=== PATIENT | male | born 1945 | race Native Hawaiian/Other Pacific Islander ===

== ENCOUNTER 2018-06-04 17:43 | Inpatient (IN) | payer MEDICARE, MEDICAID ==
--- NOTE | 2018-06-04 18:13 | ED PDOC ---
Arrival/HPI - General Chief Complaint: Seizure Time Seen by Provider: 06/04/18 18:04 Historian: Patient - History of Present Illness Narrative History of Present Illness (Text): you were treated in the ED today for hx of hypertension, cholesterol, 2015 meningioma resection and since with seizures and last 06/02/15 for a few minutes but today had a seizure lasting more than 13-14 minutes which was witnessed by the and secondarily having constipation symptoms but then had a bowel movement today, on otherwise without any head injury/neck pain/nausea/vomiting/ headache/dizziness/difficulty breathing/chest pain/abdomen pain/numbness/ tingling/loss of limb function/pain with urination. Time/Duration: 1-3 hours Symptom Onset: Sudden Symptom Course: Improving Quality: Other (no pain) Activities at Onset: Rest Context: Sitting Past Medical History - Provider Review Nursing Documentation Reviewed: Yes - Travel History Have you recently traveled outside [place] w/in the past 3 mons?: No - Infectious Disease Hx of Infectious Diseases: None - Tetanus Immunization Tetanus Immunization: Unknown - Cardiac Hx Cardiac Disorders: Yes Hx Angina: Yes Hx Hypertension: Yes Hx Mitral Valve Prolapse: Yes - Pulmonary Hx Respiratory Disorders: No - Neurological Hx Neurological Disorder: Yes Hx Seizures: Yes Other/Comment: craniotomy removal tumor 2015. brain tumor 2015 - HEENT Hx HEENT Disorder: Yes Hx Cataracts: Yes Hx Glaucoma: Yes (left eye) - Renal Hx Renal Disorder: Yes Other/Comment: over active bladder - Endocrine/Metabolic Hx Endocrine Disorders: No - Hematological/Oncological Hx Blood Disorders: No - Integumentary Hx Dermatological Disorder: No - Musculoskeletal/Rheumatological Hx Musculoskeletal Disorders: No - Gastrointestinal Hx Gastrointestinal Disorders: No - Genitourinary/Gynecological Hx Genitourinary Disorders: Yes (urine frequency) Hx Incontinence: Yes Other/Comment: over active bladder - Psychiatric Hx Psychophysiologic Disorder: No Hx Substance Use: No - Surgical History Hx Cataract Extraction: Yes (b/l) Hx Cardiac Catheterization: Yes Other/Comment: craniotomy removal tumor 2014, left hip surgery (2017) - Anesthesia Hx Anesthesia: Yes Hx Anesthesia Reactions: No Hx Malignant Hyperthermia: No - Suicidal Assessment Feels Threatened In Home Enviroment: No Family/Social History - Physician Review Nursing Documentation Reviewed: Yes Family/Social History: No Known Family HX Smoking Status: Former Smoker Hx Alcohol Use: No Hx Substance Use: No Hx Substance Use Treatment: No Allergies/Home Meds Allergies/Adverse Reactions: Allergies anesthetic-unknown name Adverse Reaction (Mild, Uncoded 06/04/18 17:55) NAUSEA Home Medications: Home Meds Medication Instructions Recorded Confirmed Simvastatin [Zocor] 20 mg PO HS 11/23/12 06/04/18 Travoprost [Travatan Z 2.5 ml] 1 drop OU HS 11/23/12 06/04/18 Carvedilol [Coreg] 25 mg PO BID 07/27/17 06/04/18 Docusate [Colace LIQUID] 100 mg PO BID 07/27/17 06/04/18 Fluticasone Propionate [Flovent 50 mcg IH DAILY 07/27/17 06/04/18 Diskus] Loperamide [Loperamide HCl] 2 mg PO DAILY PRN 07/27/17 06/04/18 Carbidopa/Levodopa 1 tab PO BID 06/04/18 06/04/18 [Carbidopa-Levodopa 25-100 Tab] Losartan [Cozaar] 1 tab PO BID 06/04/18 06/04/18 Mirtazapine [Remeron] 25 mg PO HS 06/04/18 06/04/18 Tamsulosin [Flomax] 1 cap PO HS 06/04/18 06/04/18 Timolol 0.5% Ophth [Timoptic 0.5% 1 drop RIGHTEYE DAILY 06/04/18 06/04/18 Ophth Soln] Review of Systems - Review of Systems Constitutional: Normal Eyes: Normal ENT: Normal Respiratory: Normal Cardiovascular: Normal Gastrointestinal: Normal Genitourinary Male: Normal Musculoskeletal: Normal Skin: Normal Neurological: Seizure Endocrine: Normal Hemo/Lymphatic: Normal Psychiatric: Normal Physical Exam Vital Signs Reviewed: Yes Vital Signs Temp Pulse Resp BP Pulse Ox 06/04/18 19:39 98.1 F 62 16 92/67 L 96 06/04/18 18:01 98.0 F 94 H 18 124/71 100 Temperature: Afebrile Blood Pressure: Hypertensive Pulse: Regular Respiratory Rate: Normal Appearance: Positive for: Well-Appearing, Non-Toxic, Comfortable Pain Distress: None Mental Status: Positive for: Alert and Oriented X 3 Finger Stick Blood Glucose: 110 - Systems Exam Head: Present: Atraumatic, Normocephalic Pupils: Present: PERRL Extroacular Muscles: Present: EOMI Conjunctiva: Present: Normal Ears: Present: Normal Mouth: Present: Moist Mucous Membranes Pharnyx: Present: Normal Nose (External): Present: Atraumatic Nose (Internal): Present: Normal Inspection Neck: Present: Normal Range of Motion Respiratory/Chest: Present: Clear to Auscultation, Good Air Exchange Cardiovascular: Present: Regular Rate and Rhythm Abdomen: No: Tenderness, Distention, Normal Bowel Sounds, Peritoneal Signs, Rebound, Guarding, McBurney's Point Tender, Rovsing's Sign Present, Hernias, Feeding Tubes, Ostomy Tubes, Mass/Organomegaly, Scars, Other Back: Present: Normal Inspection Upper Extremity: Present: Normal Inspection Lower Extremity: Present: Normal Inspection Neurological: Present: GCS=15, CN II-XII Intact, Speech Normal, Motor Func Grossly Intact Skin: Present: Warm, Normal Color Psychiatric: Present: Alert, Oriented x 3, Normal Insight, Normal Concentration Medical Decision Making ED Course and Treatment: you were treated in the ED today for hx of hypertension, cholesterol, 2015 meningioma resection and since with seizures and last 06/02/15 for a few minutes but today had a seizure lasting more than 13-14 minutes which was witnessed by the and secondarily having constipation symptoms but then had a bowel movement today, on otherwise without any head injury/neck pain/nausea/vomiting/ headache/dizziness/difficulty breathing/chest pain/abdomen pain/numbness/ tingling/loss of limb function/pain with urination. You were otherwise breathing easily, smiling and talking with your , good strength/sensation, walking easily, clear lungs, no abdomen tenderness, no fever temp 98, stable heart rate 84, stable breathing rate 18, excellent oxygen level 100% room air, elevated blood pressure 124/71 which we recommend repeat in 2-3 days primary care office to determine further treatment, you have blood tests no infection count 6, stable blood level hemoglobin 14/platelets 172, stable chemistry sodium 140, potassium 4, bicarbonate 19, chloride 102, bun 26, creatinine 1.1, anion gap 23 elevated, glucose 115, Magnesium 2.4 mildly elevated, AST mildly elevated 58, heart blood test negative less than 0.01, urine test protein/small blood/small leukocytes, radiology ct head report below and chest xray no acute findings, ECG normal sinus rhythm, saline, discussed your case with neurology who stated to increase your lamictal 150mg twice daily to 200mg twice daily and plan MRI with/without contrast in the morning, observation done in the ED with improvement, counselled to stop driving till first clinic visit. d/ w medical record librarian who stated will admit for Dr. Sharpe for extended seizure and new mass. EXAM: CT Head Without Intravenous Contrast CLINICAL HISTORY: 73 years old, male; Condition or disease; Other: Seizure; Patient HX: 73yom, seizure extended duration 15min TECHNIQUE: Axial computed tomography images of the head/brain without intravenous contrast. All CT scans at this facility use at least one of these dose optimization techniques: automated exposure control; mA and/or kV adjustment per patient size (includes targeted exams where dose is matched to clinical indication); or iterative reconstruction. Coronal and sagittal reformatted images were created and reviewed. COMPARISON: CT - HEAD W/O (CODE STROKE) 07/27/2017 12:25 AM FINDINGS: Brain: Extra-axial parafalcine soft tissue lesion again seen in region of superior sagittal sinus near the vertex measuring 4.4 x 3.1 cm in axial dimension and 19.1 in craniocaudal dimension. There are areas of diminished density in the white matter bilaterally consistent with chronic small vessel ischemic changes. Taylor-white matter differentiation is intact and unremarkable. No mass lesion. No evidence of intracranial hemorrhage. Vasogenic edema is seen in bilateral frontal lobes more prominent on the right. No mass effect or midline shift. Ventricles: Unremarkable. No ventriculomegaly. Bones/joints: Right frontal extra-axial soft tissue lesion adjacent to frontal craniotomy seen on axial image 27 measuring 2.4 x 2.3 cm in axial dimension and 1.6 cm in craniocaudal dimension seen on image 30. No acute fracture. Soft tissues: Left posterior parafalcine soft tissue lesion seen on axial image 24 measuring 4.1 x 1.2 cm in axial dimension and 1.6 cm in craniocaudal dimension seen on coronal image 64. Sinuses: Unremarkable as visualized. No acute sinusitis. Mastoid air cells: Unremarkable as visualized. No mastoid effusion. IMPRESSION: 1. Extra-axial parafalcine soft tissue lesion again seen in region of superior sagittal sinus near the vertex measuring 4.4 x 3.1 cm in axial dimension and 19.1 in craniocaudal dimension. This lesion appears unchanged versus increased in size compared to prior study. Please correlate with surgical history. MRI with contrast is recommended for detailed evaluation of malignancy and recurrence of disease. 2. Right frontal extra-axial soft tissue lesion adjacent to frontal craniotomy seen on axial image 27 measuring 2.4 x 2.3 cm in axial dimension and 1.6 cm in craniocaudal dimension seen on image 30. This finding appears new compared to prior study. 3. Left posterior parafalcine soft tissue lesion seen on axial image 24 measuring 4.1 x 1.2 cm in axial dimension and 1.6 cm in craniocaudal dimension seen on coronal image 64. Recommend further evaluation with MRI with contrast. 4. Chronic ischemic changes bilaterally 06/04/18 19:58 06/04/18 20:53 Reassessment Condition: Re-examined, Improved - Lab Interpretations Lab Results: 06/04/18 18:08 06/04/18 18:08 Lab Results 06/04/18 18:08: Sodium 140, Potassium 4.0, Chloride 102, Carbon Dioxide 19 L, Anion Gap 23 H, BUN 26 H, Creatinine 1.1, Est GFR ( Amer) > 60, Est GFR ( Non-Af Amer) > 60, Random Glucose 115 H, Calcium 9.8, Magnesium 2.4 H, Total Bilirubin 0.4, AST 40, ALT 58 H, Alkaline Phosphatase 61, Lactate Dehydrogenase 466, Total Creatine Kinase 458 H, CK-MB (CK-2) 2.6, CK-MB (CK-2) % Cancelled, Troponin I < 0.01, Total Protein 7.3, Albumin 4.5, Globulin 2.8, Albumin/ Globulin Ratio 1.6 06/04/18 18:08: Urine Color Yellow, Urine Appearance Sl cloudy, Urine pH 5.5, Ur Specific Normal >= 1.030, Urine Protein Trace H, Urine Glucose (UA) Negative , Urine Ketones Negative, Urine Blood Small H, Urine Nitrate Negative, Urine Bilirubin Negative, Urine Urobilinogen 0.2, Ur Leukocyte Esterase Small H, Urine RBC 5 - 10, Urine WBC 25 - 30, Ur Epithelial Cells 6 - 8, Urine Bacteria Mod 06/04/18 18:08: PT 11.1, INR 0.97, APTT 30.2 06/04/18 18:08: WBC 6.5, RBC 4.36, Hgb 14.4, Hct 42.2, MCV 96.8 D, MCH 33.0, MCHC 34.1, RDW 12.3, Plt Count 172, MPV 8.6, Gran % 71.3 H, Lymph % (Auto) 23.6 , Mercer % (Auto) 3.1, Eos % (Auto) 1.7, Baso % (Auto) 0.3, Gran # 4.63, Lymph # ( Auto) 1.5, Mercer # (Auto) 0.2, Eos # (Auto) 0.1, Baso # (Auto) 0.02 06/04/18 17:50: POC Glucose (mg/dL) 110 - RAD Interpretation Radiology Orders: 06/04/18 18:07 HEAD W/O CONTRAST [CT] Stat CHEST PORTABLE [RAD] Stat 06/04/18 20:51 BRAIN W & WO CONTRAST [MRI] Stat Side Puller: ED Physician (cxr no acute) - EKG Interpretation Interpreted by ED Physician: Yes (NSR) Type: 12 lead EKG - Medication Orders Current Medication Orders: Sodium Chloride (Sodium Chloride 0.9%) 1,000 mls @ 100 mls/hr IV .Q10H KARIN Last Admin: 06/04/18 19:16 Dose: 100 mls/hr eMAR Start Stop Document 06/04/18 19:16 BENNY (Rec: 06/04/18 19:19 BENNY [id number]) Intravenous Solution Start Date 06/04/18 Start Time 19:16 Discontinued Medications Lamotrigine (Lamictal) 50 mg PO STAT STA PRN Reason: Protocol Stop: 06/04/18 20:25 Disposition/Present on Arrival - Present on Arrival Any Indicators Present on Arrival: No History of DVT/PE: No History of Uncontrolled Diabetes: No Urinary Catheter: No History of Decub. Ulcer: No History Surgical Site Infection Following: None - Disposition Have Diagnosis and Disposition been Completed?: Yes Diagnosis: Seizure, Meningioma Disposition: HOSPITALIZED Disposition Time: 20:54 Patient Plan: Admission, Telemetry Condition: IMPROVED Forms: [employer] (Czech)
[2018-06-04 18:21] LABS: BASO # 0.02 K/mm3 (0.0-2.0); BASO % 0.3 % (0.0-3.0); EOS # 0.1 (0.0-0.7); EOS % 1.7 % (1.5-5.0); GRAN # 4.63 (1.4-6.5); GRAN % 71.3 % (50.0-68.0); HEMOGLOBIN 14.4 g/dL (14.0-18.0); LYMPH # 1.5 (1.2-3.4); LYMPH % 23.6 % (22.0-35.0); MEAN CELL VOLUME 96.8 fl (80.0-105.0); MEAN CORPUSCULAR HGB CONC 34.1 g/dl (31.0-37.0); MEAN PLATELET VOLUME 8.6 fl (7.0-11.0); MONO # 0.2 (0.1-0.6); MONO % 3.1 % (1.0-6.0); RBC 4.36 10^6/uL (3.5-6.1); RED CELL DISTRIBUTION WIDTH 12.3 % (11.5-14.5); WHITE BLOOD COUNT 6.5 10^3/ul (4.5-11.0)
[2018-06-04 18:22] LABS: PH,URINE 5.5 (4.7-8.0); URINE BILIRUBIN NEGATIVE (NEGATIVE); URINE BLOOD SMALL (NEGATIVE); URINE GLUCOSE (UA) NEGATIVE (NEGATIVE); URINE LEUKOCYTE ESTERASE SMALL Leu/uL (NEGATIVE); URINE PROTEIN TRACE mg/dL (<30 mg/dL); URINE UROBILINOGEN 0.2 E.U./dL (<1 E.U./dL)
[2018-06-04 18:24] LABS: URINE COLOR YELLOW (YELLOW)
[2018-06-04 18:27] LABS: INR 0.97; PARTIAL THROMBOPLASTIN TIME 30.2 Seconds (25.1-36.5); PROTHROMBIN TIME 11.1 SECONDS (9.4-12.5)
[2018-06-04 18:30] LABS: ALB/GLOB RATIO 1.6 (1.1-1.8); ALBUMIN 4.5 g/dL (3.0-4.8); ALT/SGPT 58 U/L (7-56); AST/SGOT 40 U/L (17-59); BLOOD UREA NITROGEN 26 mg/dL (7-21); CALCIUM 9.8 mg/dL (8.4-10.5); GFR NON-AFRICAN AMERICAN > 60
[2018-06-04 18:33] LABS: URINE APPEARANCE SL CLOUDY (CLEAR); URINE WBC 25 - 30 /hpf (0-6)
[2018-06-04 18:34] LABS: URINE BACTERIA MOD (NEG)
[2018-06-04 18:41] LABS: TROPONIN I < 0.01 ng/mL
[2018-06-04 19:13] LABS: CK-MB 2.6 ng/mL (0.0-3.6)
[2018-06-04] MEDS: Sodium Chloride 0.9% 1,000 ML IV SCH (19:16)
--- NOTE | 2018-06-04 22:36 | CP.PCM.HP ---
History of Present Illness - History of Present Illness History of Present Illness: Antony Dale, PGY-1 H&P for Hospitalist Service This is a 73 year old male with PMH of 2015 meningioma, parkinson's, HT and HLD presenting to the ED for witnessed seizure. Per , patient was laying on bed at home at 4pm when he began to have seizure that lasted approximately ten minutes. Seizure broke spontaneously and patient admits to confusion after seizure. He denies any head trauma. Patient says he has approximately one seizure per month since his meningioma resection in 2014. Patient has no complaints at this time. He denies CP, SOB, headaches, fevers, nausea, chills, vomiting, abdominal pain, new back pain, urinary complaints, numbness, tingling , recent sickness and recent travel. 12 point ROS noted here, otherwise unremarkable. In ED, patient was given 50mg lamictal and 1L NS. Labs showed elevated CK, BUN 26, Mg of 2.4 and ALT of 58. Head CT showed right frontal extra-axial soft tissue lesion adjacent to frontal craniotomy. This finding appears new compared to prior study. Left posterior parafalcine soft tissue lesion. Recommend further evaluation with MRI with contrast. Chronic ischemic changes bilaterally. Per Dr. Jenkins, patient to increase lamictal to 200mg BID and will have Brain MRI in morning. Patient will be admitted to [facility] for monitoring. PMH: as above SH: denies tobacco, drinking and drugs Sx: left hip replacement FH: father had stroke, brother had pancreatic cancer All: says anesthetic medication but cannot specify name Present on Admission - Present on Admission Any Indicators Present on Admission: No Past Patient History - Infectious Disease Hx of Infectious Diseases: None - Tetanus Immunizations Tetanus Immunization: Unknown - Past Medical History & Family History Past Medical History?: Yes - Past Social History Smoking Status: Former Smoker - CARDIAC Hx Cardiac Disorders: Yes Hx Angina: Yes Hx Hypertension: Yes Hx Mitral Valve Prolapse: Yes - PULMONARY Hx Respiratory Disorders: No - NEUROLOGICAL Hx Neurological Disorder: Yes Hx Seizures: Yes Other/Comment: craniotomy removal tumor 2014. brain tumor 2014 - HEENT Hx HEENT Problems: Yes Hx Cataracts: Yes Hx Glaucoma: Yes (left eye) - RENAL Hx Chronic Kidney Disease: Yes Other/Comment: over active bladder - ENDOCRINE/METABOLIC Hx Endocrine Disorders: No - HEMATOLOGICAL/ONCOLOGICAL Hx Blood Disorders: No - INTEGUMENTARY Hx Dermatological Problems: No - MUSCULOSKELETAL/RHEUMATOLOGICAL Hx Musculoskeletal Disorders: No - GASTROINTESTINAL Hx Gastrointestinal Disorders: No - GENITOURINARY/GYNECOLOGICAL Hx Genitourinary Disorders: Yes (urine frequency) Hx Incontinence: Yes Other/Comment: over active bladder - PSYCHIATRIC Hx Psychophysiologic Disorder: No Hx Substance Use: No - SURGICAL HISTORY Hx Cataract Extraction: Yes (b/l) Hx Cardiac Catheterization: Yes Other/Comment: craniotomy removal tumor 2014, left hip surgery (2016) - ANESTHESIA Hx Anesthesia: Yes Hx Anesthesia Reactions: No Hx Malignant Hyperthermia: No Meds Allergies/Adverse Reactions: Allergies Allergy/AdvReac Type Severity Reaction Status Date / Time anesthetic-unknown name AdvReac Mild NAUSEA Uncoded 06/04/18 17:55 Physical Exam - Constitutional Appears: No Acute Distress - Head Exam Head Exam: ATRAUMATIC, NORMAL INSPECTION - Eye Exam Eye Exam: EOMI Pupil Exam: PERRL - ENT Exam ENT Exam: Mucous Membranes Moist - Respiratory Exam Respiratory Exam: Clear to Auscultation Bilateral. absent: Respiratory Distress - Cardiovascular Exam Cardiovascular Exam: REGULAR RHYTHM, +S1, +S2 - GI/Abdominal Exam GI & Abdominal Exam: Normal Bowel Sounds. absent: Firm, Guarding - Extremities Exam Extremities exam: Positive for: normal inspection. Negative for: calf tenderness Additional comments: left leg 4/5 muscle strength, right leg 5/5 muscle strength - Back Exam Back exam: NORMAL INSPECTION - Neurological Exam Neurological exam: Alert, CN II-XII Intact, Oriented x3 - Skin Skin Exam: Normal Color, Warm Results - Vital Signs Recent Vital Signs: Last Vital Signs Temp 98.1 F 06/04/18 19:39 Pulse 62 06/04/18 19:39 Resp 16 06/04/18 19:39 BP 92/67 L 06/04/18 19:39 Pulse Ox 96 06/04/18 19:39 - Labs Result Diagrams: 06/04/18 18:08 06/04/18 18:08 Assessment & Plan - Assessment and Plan (Free Text) Assessment: This is a 73 year old male with PMH of 2015 meningioma, parkinson's, HT and HLD presenting to the ED for witnessed seizure. Patient will have MRI Brain in the AM. Admitted to tele. Plan: S/p unprovoked seizure episode -history of seizure after meningioma resection in 2014 -MRI Brain AM -neurology on consult, Dr. Jenkins -Lamictal 200mg BID -aspiration precautions -seizure precautions -neuro checks -moderate fall prevention -elevated CK -NS @ 100cc/hr -Head CT shows new right frontal extra-axial soft tissue lesion adjacent to frontal craniotomy measuring 2.4 x 2.3 cm. This finding appears new compared to prior study. Left posterior parafalcine soft tissue lesion seen on axial image 24 measuring 4.1 x 1.2 cm in axial dimension and 1.6 cm in craniocaudal dimension seen on coronal image 64. Recommend further evaluation with MRI with contrast. Chronic ischemic changes bilaterally Mild transaminitis -elevated AST -will monitor History of Parkinson's -continue home carbidopa/levodopa History of HTN -continue home carvedilol. losartan History of HLD -continue home atorvastatin PPX with pepcid and SCD Patient seen and case discussed with attending, Dr. Erum Dale, PGY-1
[2018-06-05] MEDS: Latanoprost 2.5 ml Opht Soln OU SCH (00:42)
[2018-06-05 05:16] LABS: BASO # 0.02 K/mm3 (0.0-2.0); BASO % 0.3 % (0.0-3.0); EOS # 0.1 (0.0-0.7); EOS % 1.6 % (1.5-5.0); GRAN # 4.9 (1.4-6.5); GRAN % 64.5 % (50.0-68.0); HEMOGLOBIN 14.8 g/dL (14.0-18.0); LYMPH # 2.2 (1.2-3.4); LYMPH % 29.4 % (22.0-35.0); MEAN CELL VOLUME 97.3 fl (80.0-105.0); MEAN CORPUSCULAR HEMOGLOBIN 33.3 pg (25.0-35.0); MEAN CORPUSCULAR HGB CONC 34.2 g/dl (31.0-37.0); MEAN PLATELET VOLUME 8.7 fl (7.0-11.0); MONO # 0.3 (0.1-0.6); MONO % 4.2 % (1.0-6.0); RBC 4.45 10^6/uL (3.5-6.1); RED CELL DISTRIBUTION WIDTH 12.5 % (11.5-14.5); WHITE BLOOD COUNT 7.6 10^3/ul (4.5-11.0)
[2018-06-05] MEDS: Sodium Chloride 0.9% 1,000 ML IV SCH (05:17)
[2018-06-05] MEDS ORDERED: Pantoprazole 20 mg EC Tab PO SCH (06:00)
[2018-06-05 06:55] LABS: ALB/GLOB RATIO 1.6 (1.1-1.8); ALBUMIN 4.5 g/dL (3.0-4.8); ALT/SGPT 75 U/L (7-56); AST/SGOT 38 U/L (17-59); BLOOD UREA NITROGEN 25 mg/dL (7-21); CALCIUM 9.6 mg/dL (8.4-10.5); GFR NON-AFRICAN AMERICAN > 60
--- NOTE | 2018-06-05 09:09 | RAD ---
Date of service: 06/04/2018 HISTORY: Seizure COMPARISON: 07/27/2017. FINDINGS: LUNGS: The lungs are well inflated and clear. PLEURA: No significant pleural effusion identified, no pneumothorax apparent. CARDIOVASCULAR: Normal. OSSEOUS STRUCTURES: No significant abnormalities. VISUALIZED UPPER ABDOMEN: Normal. OTHER FINDINGS: None. IMPRESSION: No active pulmonary disease.
--- NOTE | 2018-06-05 09:34 | CT ---
Date of service: 06/04/2018 PROCEDURE: CT HEAD WITHOUT CONTRAST. HISTORY: 73yoM, seizure extended duration 15min COMPARISON: 07/27/2017 TECHNIQUE: Axial computed tomography images were obtained through the head/brain without intravenous contrast. Radiation dose: Total exam DLP = 1061 mGy-cm. This CT exam was performed using one or more of the following dose reduction techniques: Automated exposure control, adjustment of the mA and/or kV according to patient size, and/or use of iterative reconstruction technique. FINDINGS: HEMORRHAGE: No intracranial hemorrhage. BRAIN: There is a mass arising from the left side of the posterior falx. Measuring 46 x 28 x 12 mm. This most likely represents a meningioma. A dural metastasis is also possible. There is vasogenic edema in the left hemisphere. There is chronic encephalomalacia in the right hemisphere. The mass has increased in size VENTRICLES: Unremarkable. No hydrocephalus. CALVARIUM: Frontal craniotomy changes are seen PARANASAL SINUSES: Unremarkable as visualized. No significant inflammatory changes. MASTOID AIR CELLS: Unremarkable as visualized. No inflammatory changes. OTHER FINDINGS: None. IMPRESSION: There is a mass arising from the left side of the posterior falx. Measuring 46 x 28 x 12 mm. This most likely represents a meningioma. A dural metastasis is also possible. There is vasogenic edema in the left hemisphere. There is chronic encephalomalacia in the right hemisphere. The mass has increased in size
[2018-06-05 10:45] LABS: FREE T4 0.77 ng/dL (0.78-2.19)
[2018-06-05] MEDS ORDERED: Gadodiamide 287 MG/ML VIAL (15ML) IV ONE (10:45)
[2018-06-05 10:58] LABS: T3 1.01 ng/mL (0.97-1.69)
--- NOTE | 2018-06-05 11:43 | PCM.RRT ---
<Bala Mendes - Last Filed: 06/05/18 12:48> ADULT SERVICES LIBRARIAN Nurse Assessment - Situation Date: 06/05/18 Time ADULT SERVICES LIBRARIAN was called: 10:50 ADULT SERVICES LIBRARIAN Location:: mri ADULT SERVICES LIBRARIAN Reason for Call: Change in Mental Status ADULT SERVICES LIBRARIAN Called By: Other Disciplines - IV IV Inserted during ADULT SERVICES LIBRARIAN?: No I.Reason for ADULT SERVICES LIBRARIAN - A) Acute Change in Patient: (Select all that apply): Acute change in mental status Plan - Assessment of Findings&Treatment Plan Bala Mendes Internal Medicine Resident- House Doctor Subjective: ADULT SERVICES LIBRARIAN called on patient by communication technician for seizure like activity. As per staff , the patient was having MRI completed when his upper extremities contracted and began shaking. Additionally the patient was altered and would not follow commands. Event lasted for approximately 60 seconds. Patient seen and examined at site of occurrence. Patient was awake, alert, responded to verbal stimuli, answered questions appropriately, followed commands, and moved extremities past midline. Patient did not recall aforementioned event. Admits to baseline right upper extremity and lower extermity tremor. Denies associated dizziness, visual/ auditory changes, chest palpitations, and neurological deficits. Further denies fever, chills, chest pain, shortness of breath, abdominal pain, nausea/vomiting , diarrhea, constipation, and urinary symptoms. 12 Point ROS negative except as indicated in HPI Physical Examination: - Constitutional Appears: No Acute Distress - Head Exam Head Exam: ATRAUMATIC - Eye Exam Eye Exam: EOMI Pupil Exam: PERRL - ENT Exam ENT Exam: Mucous Membranes Moist - Respiratory Exam Respiratory Exam: Clear to Auscultation Bilateral. absent: Respiratory Distress - Cardiovascular Exam Cardiovascular Exam: +S1, +S2 - GI/Abdominal Exam GI & Abdominal Exam: Normal Bowel Sounds. absent: Firm, Guarding - Extremities Exam Extremities exam: Positive for: normal inspection. Negative for: calf tenderness - Neurological Exam Neurological exam: AAO x 3, CN II-XII Intact, muscle strength 5/5 bilateral upper extremities, 4/5 bilateral lower extremities, sensation intake to touch throughout - Skin Skin Exam: Normal Color, Warm Assessment and Plan: Patient is a 73 year old male with PMHx of 2015 meningioma, parkinson's, HT and HLD who was admitted for evaluation and treatment of a witnessed seizure. ADULT SERVICES LIBRARIAN called on patient for seizure like activity. Seizure Like Activity, Hx of Seizures - Ativan 2mg IV given during ADULT SERVICES LIBRARIAN, seizure subsided and patient is hemodynamically stable - Neuro checks q4 hrs - High risk fall precautions Primary team made aware patient case. Patient case endorsed to and plan approved by attending physician, Dr. Mcgee. <Nahomy Mcgee - Last Filed: 06/05/18 17:35> Attending/Attestation - Attestation I have personally seen and examined this patient.: Yes I have fully participated in the care of the patient.: Yes I have reviewed all pertinent clinical information, including history, physical exam and plan: Yes Notes (Text): attending note; Patient seen and examined with resident during rapid response. Patient had an episode of seizure during MRI scan. Patient was given IV Ativan. Currently alert and awake. No focal neurological deficit. Vitals stable. Patient will be transferred to the floor and closely. case discussed with PMD in detail.
--- NOTE | 2018-06-05 12:25 | MRI ---
Date of service: 06/05/2018 PROCEDURE: MRI BRAIN WITH AND WITHOUT CONTRAST HISTORY: per Dr. Jenkins hx of seizures/brain mass. COMPARISON: CT 06/04/2018 TECHNIQUE: Multiplanar, multisequence MR images of the brain were obtained with and without intravenous contrast enhancement. 15 cc of Omniscan The study is compromised by motion artifact. The patient had a seizure well in the scanner. Postcontrast images could not be obtained. FINDINGS: HEMORRHAGE: None DWI: There is a mass in the right anterior frontal region which measuring 16 mm in diameter. This shows restricted diffusion. The lesion is hypo intense on T2 weighted imaging. There is a broad-based left falcine lesion which also shows restricted diffusion and is best seen on the ADC map images specifically image 18 series 300. This lesion measures 42 x 12 mm. BRAIN PARENCHYMA: Abnormal signal intensity is seen in the white matter bilaterally. Consistent with encephalomalacia and vasogenic edema especially on the left. There has been a previous craniotomy. ENHANCEMENT: The axial postcontrast images are severely degraded by motion. However the lesions mentioned above appear to enhance. VENTRICLES: Unremarkable. No hydrocephalus. CRANIUM: Previous frontal craniotomy ORBITS: Grossly unremarkable. PARANASAL SINUSES/MASTOIDS: Clear VASCULAR SYSTEM: Skull base flow voids intact. OTHER FINDINGS: None . IMPRESSION: Two separate extra-axial masses along side the falx. There is a right anterior frontal mass and a left posterior frontal mass. These lesions appear to enhance. Findings suspicious for metastatic disease
--- NOTE | 2018-06-05 12:26 | CP.PCM.CON ---
History of Present Illness - History of Present Illness History of Present Illness: Neurology Consultation Note: Mrs. Hatch is a 73-year-old man with a past medical history of seizure disorder due to frontal meningioma s/p resection, who had a prolonged episode of witnessed seizure yesterday with subsequent post-ictal state. CT scan of the head was concerning for possible resurgence of meningioma and new lesions. He usually takes Lamictal 150 BID, I asked this to be increased to 200 mg BID and will get MRI with contrast to evaluate intracranial masses and edema. Review of Systems - Review of Systems All systems: reviewed and no additional remarkable complaints except Past Patient History - Infectious Disease Hx of Infectious Diseases: None - Tetanus Immunizations Tetanus Immunization: Unknown - Past Medical History & Family History Past Medical History?: Yes - Past Social History Smoking Status: Former Smoker - CARDIAC Hx Cardiac Disorders: Yes Hx Angina: Yes Hx Hypertension: Yes Hx Mitral Valve Prolapse: Yes - PULMONARY Hx Respiratory Disorders: No - NEUROLOGICAL Hx Neurological Disorder: Yes Hx Seizures: Yes Other/Comment: craniotomy removal tumor 2015. brain tumor 2015 - HEENT Hx HEENT Problems: Yes Hx Cataracts: Yes Hx Glaucoma: Yes (left eye) - RENAL Hx Chronic Kidney Disease: Yes Other/Comment: over active bladder - ENDOCRINE/METABOLIC Hx Endocrine Disorders: No - HEMATOLOGICAL/ONCOLOGICAL Hx Blood Disorders: No - INTEGUMENTARY Hx Dermatological Problems: No - MUSCULOSKELETAL/RHEUMATOLOGICAL Hx Musculoskeletal Disorders: No - GASTROINTESTINAL Hx Gastrointestinal Disorders: No - GENITOURINARY/GYNECOLOGICAL Hx Genitourinary Disorders: Yes (urine frequency) Hx Incontinence: Yes Other/Comment: over active bladder - PSYCHIATRIC Hx Psychophysiologic Disorder: No Hx Substance Use: No - SURGICAL HISTORY Hx Cataract Extraction: Yes (b/l) Hx Cardiac Catheterization: Yes Other/Comment: craniotomy removal tumor 2014, left hip surgery (2017) - ANESTHESIA Hx Anesthesia: Yes Hx Anesthesia Reactions: No Hx Malignant Hyperthermia: No Meds Allergies/Adverse Reactions: Allergies Allergy/AdvReac Type Severity Reaction Status Date / Time anesthetic-unknown name AdvReac Mild NAUSEA Uncoded 06/05/18 12:05 - Medications Medications: Current Medications Atorvastatin Calcium (Lipitor) 10 mg PO DIN [facility] Carbidopa/Levodopa (Sinemet) 1 tab PO BID [facility] Carvedilol (Coreg) 25 mg PO BID [facility] Docusate Sodium (Colace) 100 mg PO BID [facility] Famotidine (Pepcid) 40 mg PO HS [facility] Sodium Chloride (Sodium Chloride 0.9%) 1,000 mls @ 100 mls/hr IV .Q10H [facility] Last Admin: 06/05/18 05:17 Dose: 100 mls/hr Lamotrigine (Lamictal) 200 mg PO BID [facility] PRN Reason: Protocol Latanoprost (Xalatan Opht) 0 ml OU HS [facility] Last Admin: 06/05/18 00:42 Dose: 2.5 ml Losartan Potassium (Cozaar) 1 mg PO BID [facility] Mirtazapine (Remeron) 15 mg PO HS [facility] Last Admin: 06/05/18 00:42 Dose: 15 mg Tamsulosin HCl (Flomax) 0.4 mg PO HS [facility] Last Admin: 06/05/18 00:33 Dose: 0.4 mg Timolol Maleate (Timoptic 0.5% Ophth Soln) 1 drop OD DAILY [facility] Physical Exam - Neurological Exam Additional comments: Somnolent, opens eyes to painful stimulus, confused, not combative, responds verbally with simple words and looks around. CN 2-12 intact. Moves all extremities, but did not follow commands consistently. Reflexes are brisk with clonus and upgoing plantar responses bilaterally. Sensation intact. Gait not assessed. Results - Vital Signs Recent Vital Signs: Last Vital Signs Temp 98.4 F 06/05/18 09:05 Pulse 114 H 06/05/18 11:01 Resp 18 06/05/18 11:01 BP 166/95 H 06/05/18 11:01 Pulse Ox 97 06/05/18 11:01 - Labs Result Diagrams: 06/05/18 05:00 06/05/18 05:00 Labs: Laboratory Results - last 24 hr 06/05/18 06/05/18 06/05/18 05:00 05:00 06:00 WBC 7.6 RBC 4.45 Hgb 14.8 Hct 43.3 MCV 97.3 MCH 33.3 MCHC 34.2 RDW 12.5 Plt Count 183 MPV 8.7 Gran % 64.5 Lymph % (Auto) 29.4 Major % (Auto) 4.2 Eos % (Auto) 1.6 Baso % (Auto) 0.3 Gran # 4.90 Lymph # (Auto) 2.2 Major # (Auto) 0.3 Eos # (Auto) 0.1 Baso # (Auto) 0.02 Sodium 142 Potassium 4.0 Chloride 103 Carbon Dioxide 25 Anion Gap 17 BUN 25 H Creatinine 1.1 Est GFR ( Amer) > 60 Est GFR (Non-Af Amer) > 60 Random Glucose 110 Calcium 9.6 Phosphorus 3.9 Magnesium 2.4 H Total Bilirubin 0.6 AST 38 ALT 75 H Alkaline Phosphatase 68 Total Protein 7.4 Albumin 4.5 Globulin 2.9 Albumin/Globulin Ratio 1.6 Free T4 0.77 L Thyroxine (T4) 7.0 Total T3 1.01 TSH 3rd Generation 2.46 Prolactin 06/05/18 08:03 WBC RBC Hgb Hct MCV MCH MCHC RDW Plt Count MPV Gran % Lymph % (Auto) Major % (Auto) Eos % (Auto) Baso % (Auto) Gran # Lymph # (Auto) Major # (Auto) Eos # (Auto) Baso # (Auto) Sodium Potassium Chloride Carbon Dioxide Anion Gap BUN Creatinine Est GFR ( Amer) Est GFR (Non-Af Amer) Random Glucose Calcium Phosphorus Magnesium Total Bilirubin AST ALT Alkaline Phosphatase Total Protein Albumin Globulin Albumin/Globulin Ratio Free T4 Thyroxine (T4) Total T3 TSH 3rd Generation Prolactin 9.9 Assessment & Plan (1) Meningioma Assessment and Plan: Will evaluate with MRI brain with and without contrast. Consult neurosurgery for outpatient management. Status: Acute (2) Seizure Assessment and Plan: Will increase Lamictal to 200 mg BID and continue monitoring. Likely still post -ictal. Admit for observation and EEG. Thank you. Status: Acute
--- NOTE | 2018-06-05 15:24 | CARD ---
APPROVED REPORT Date of service: 06/04/2018 EKG Measurement Heart [id number] <Conclusion> Normal sinus rhythm Normal ECG
[2018-06-05] MEDS ORDERED: Pneumococcal 23-Valent Vaccine IM ONE (18:01)
[2018-06-05 18:02] VITALS: BMI 24.2
--- NOTE | 2018-06-05 18:08 | CP.PCM.PN ---
<Xavier Abreu - Last Filed: 06/05/18 18:04> Subjective - Date & Time of Evaluation Date of Evaluation: 06/05/18 Time of Evaluation: 08:45 - Subjective Subjective: Xavier Abreu DO PGY-1, Internal Medicine Resident. Hospitalist Progress Note Patient seen and examined at bedside in ED. Patient was responding to questions with low volium voice. No seizure activity noted at that time. Patient was rested in bed. Patient denied CP, palpitations, headache, fever. ROS is otherwise negative Objective - Vital Signs/Intake and Output Vital Signs (last 24 hours): Temp Pulse Resp BP Pulse Ox 97.7 F 89 18 115/70 94 L 06/05/18 17:34 06/05/18 18:00 06/05/18 17:34 06/05/18 18:00 06/05/18 17:05 - Medications Medications: Current Medications Atorvastatin Calcium (Lipitor) 10 mg PO DIN [facility] Last Admin: 06/05/18 18:01 Dose: 10 mg Carbidopa/Levodopa (Sinemet) 1 tab PO BID [facility] Last Admin: 06/05/18 18:01 Dose: 1 tab Carvedilol (Coreg) 25 mg PO BID [facility] Last Admin: 06/05/18 18:00 Dose: 25 mg Docusate Sodium (Colace) 100 mg PO BID [facility] Last Admin: 06/05/18 18:00 Dose: 100 mg Famotidine (Pepcid) 40 mg PO HS [facility] Sodium Chloride (Sodium Chloride 0.9%) 1,000 mls @ 100 mls/hr IV .Q10H [facility] Last Admin: 06/05/18 05:17 Dose: 100 mls/hr Lamotrigine (Lamictal) 200 mg PO BID [facility] PRN Reason: Protocol Last Admin: 06/05/18 18:00 Dose: 200 mg Latanoprost (Xalatan Opht) 0 ml OU HS [facility] Last Admin: 06/05/18 00:42 Dose: 2.5 ml Lorazepam (Ativan) 2 mg IVP Q4 PRN; Protocol PRN Reason: Anxiety Losartan Potassium (Cozaar) 25 mg PO BID [facility] Last Admin: 06/05/18 18:00 Dose: 25 mg Mirtazapine (Remeron) 15 mg PO HS [facility] Last Admin: 09/17/18 00:42 Dose: 15 mg Tamsulosin HCl (Flomax) 0.4 mg PO HS [facility] Last Admin: 06/05/18 00:33 Dose: 0.4 mg Timolol Maleate (Timoptic 0.5% Ophth Soln) 1 drop OD DAILY [facility] Last Admin: 06/05/18 14:32 Dose: 1 drop - Labs Labs: 06/05/18 05:00 06/05/18 05:00 PT 11.1 SECONDS (9.4-12.5) 06/04/18 18:08 INR 0.97 06/04/18 18:08 APTT 30.2 Seconds (25.1-36.5) 06/04/18 18:08 - Constitutional Appears: Well - Head Exam Head Exam: ATRAUMATIC, NORMOCEPHALIC Additional comments: scalp scar - Eye Exam Eye Exam: EOMI, Normal appearance, PERRL Pupil Exam: NORMAL ACCOMODATION, PERRL - ENT Exam ENT Exam: Mucous Membranes Moist, Normal Exam - Neck Exam Neck Exam: Full ROM, Normal Inspection. absent: Lymphadenopathy - Respiratory Exam Respiratory Exam: Clear to Ausculation Bilateral, NORMAL BREATHING PATTERN - Cardiovascular Exam Cardiovascular Exam: REGULAR RHYTHM, +S1, +S2. absent: Murmur - GI/Abdominal Exam GI & Abdominal Exam: Soft, Normal Bowel Sounds. absent: Tenderness - Back Exam Back Exam: NORMAL INSPECTION - Neurological Exam Neurological Exam: Alert, Awake, CN II-XII Intact, Oriented x3 Neuro motor strength exam: Right Upper Extremity: 3, Right Lower Extremity: 3 Additional comments: resting tremors b/l hands. cog wheel rigidity in upper extremity - Psychiatric Exam Psychiatric exam: Normal Affect Additional comments: low volume voice - Skin Skin Exam: Dry, Intact, Normal Color, Warm Assessment and Plan - Assessment and Plan (Free Text) Assessment: 73 y/o male with PMH of HTN, HLD meningioma, Parkinson's disease, presented to the ED for witnessed seizure with post ictal confusion and muscle weakness. Patient admitted to tele Plan: Seizure episode. history of seizure s/p meningioma resection. has 1 seisure episode per month. compliant with Lamictal treatment CPK [id number] IVF: NS @100cc/hr Ativan 2mg q4 prn Head CT shows new right frontal extra-axial soft tissue lesion adjacent to frontal craniotomy measuring 2.4 x 2.3 cm. This finding appears new compared to prior study. Left posterior parafalcine soft tissue lesion seen on axial image 24 measuring 4.1 x 1.2 cm in axial dimension and 1.6 cm in craniocaudal dimension As per neurology consult Dr. Jenkins: increase Lamictal to 200 mg BID, MRI brain with and without contrast. Admit for observation and EEG. Consult neurosurgery for outpatient management Parkinson's disease continue home carbidopa/levodopa continue mirtazipine for depression Microscoptic hematuria incidental finding in [facility] urology follow up as outpatient Patient couseling regarding malignancy risk flomax HTN -continue home carvedilol. losartan HLD continue home atorvastatin Prophylaxis GI ppx pepcid DVT ppx SCD Heart healthy diet fall prevention aspiration precautions seizure precautions neuro checks Case reviewed and plan discussed with attending Dr lBanco <Estee Blanco - Last Filed: 06/10/18 18:20> Objective - Vital Signs/Intake and Output Vital Signs (last 24 hours): Temp Pulse Resp BP Pulse Ox 98.5 F 83 21 118/68 94 L 06/10/18 17:22 06/10/18 17:22 06/10/18 17:22 06/10/18 17:22 06/10/18 17:22 Intake and Output: 06/10/18 06/10/18 06:59 18:59 Intake Total 1570 Balance 1570 - Medications Medications: Current Medications Atorvastatin Calcium (Lipitor) 10 mg PO DIN [facility] Last Admin: 06/09/18 17:34 Dose: 10 mg Carbidopa/Levodopa (Sinemet) 1 tab PO BID [facility] Last Admin: 06/10/18 09:26 Dose: 1 tab Carvedilol (Coreg) 25 mg PO BID [facility] Last Admin: 06/10/18 09:27 Dose: 25 mg Dexamethasone (Decadron Inj) 10 mg IVP Q8H [facility] Last Admin: 06/10/18 09:26 Dose: 10 mg Dextrose (Dextrose 50% Inj) 0 ml IV STAT PRN; Protocol PRN Reason: Hypoglycemia Protocol Docusate Sodium (Colace) 100 mg PO BID [facility] Last Admin: 06/10/18 09:27 Dose: 100 mg Famotidine (Pepcid) 40 mg PO HS [facility] Last Admin: 06/09/18 22:12 Dose: 40 mg Sodium Chloride (Sodium Chloride 0.9%) 1,000 mls @ 100 mls/hr IV .Q10H [facility] Last Admin: 06/06/18 00:17 Dose: 100 mls/hr Levetiracetam 1,000 mg/ Sodium (Chloride) 110 mls @ 460 mls/hr IV Q12 [facility] Last Admin: 06/10/18 09:35 Dose: 460 mls/hr Dextrose/Sodium Chloride (Dextrose 5%/0.45% Ns 1000 Ml) 1,000 mls @ 100 mls/hr IV .Q10H [facility] Last Admin: 06/09/18 17:37 Dose: 100 mls/hr Lamotrigine (Lamictal) 200 mg PO BID [facility] PRN Reason: Protocol Last Admin: 06/10/18 09:26 Dose: 200 mg Latanoprost (Xalatan Opht) 0 ml OU HS [facility] Last Admin: 06/09/18 22:15 Dose: 2.5 ml Levofloxacin (Levaquin) 250 mg PO DAILY [facility] Stop: 06/12/18 10:46 Last Admin: 06/10/18 09:26 Dose: 250 mg Lorazepam (Ativan) 2 mg IVP Q4 PRN; Protocol PRN Reason: Anxiety Last Admin: 06/09/18 22:12 Dose: 2 mg Losartan Potassium (Cozaar) 25 mg PO BID [facility] Last Admin: 06/10/18 09:27 Dose: 25 mg Mirtazapine (Remeron) 15 mg PO HS [facility] Last Admin: 06/09/18 22:12 Dose: 15 mg Tamsulosin HCl (Flomax) 0.4 mg PO HS [facility] Last Admin: 06/09/18 22:12 Dose: 0.4 mg Timolol Maleate (Timoptic 0.5% Ophth Soln) 1 drop OD DAILY [facility] Last Admin: 06/10/18 09:26 Dose: 1 drop - Labs Labs: 06/10/18 05:30 06/10/18 05:30 PT 11.1 SECONDS (9.4-12.5) 06/04/18 18:08 INR 0.97 06/04/18 18:08 APTT 30.2 Seconds (25.1-36.5) 06/04/18 18:08 Attending/Attestation - Attestation I have personally seen and examined this patient.: Yes I have fully participated in the care of the patient.: Yes I have reviewed all pertinent clinical information, including history, physical exam and plan: Yes Notes (Text): 06/10/18 18:19 Medical record note made by the resident after discussion with my direction and input after the patient was personally seen and examined by me. I have reviewed the chart and agree that the record accurately reflects by personal performance of the history, physical exam, data review, and medical decision-making, in the course for the patient. I have also personally directed the plan of care. 73 y/o male with PMH of HTN, HLD meningioma,SP resection , Parkinson's disease, presented to the ED for witnessed seizure with post-ictal confusion and muscle weakness. Head CT shows new right frontal extra-axial soft tissue lesion adjacent to frontal craniotomy measuring 2.4 x 2.3 cm. This finding appears new compared to prior study. Left posterior parafalcine soft tissue lesion seen on axial image 24 measuring 4.1 x 1.2 cm in axial dimension and 1.6 cm in craniocaudal dimension. MRI brain: Two separate extra-axial masses along side the falx. There is a right anterior frontal mass and a left posterior frontal mass. These lesions appear to enhance. 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 He is off video EEG. No seizure reported..Patient is on IV steroid,Keppra and Lamectal.Patient has refused any Surgery, Radiation oncology evaluation, not candidate for radiation, Oncology has recommended palliative care, Patient is DNR/DNI. Palliative team is following. Prognosis is guarded.
[2018-06-06] MEDS: Sodium Chloride 0.9% 1,000 ML IV SCH (00:17)
--- NOTE | 2018-06-06 06:27 | CP.PCM.PN ---
<Xavier Abreu - Last Filed: 06/06/18 17:51> Subjective - Date & Time of Evaluation Date of Evaluation: 06/06/18 Time of Evaluation: 06:19 - Subjective Subjective: Xavier Abreu DO PGY-1, Internal Medicine Resident. Hospitalist Progress Note Patient seen and examined at bedside. No seizure activity noted overnight. Patient was resting in bed. Patient denied CP, palpitations, headache, fever. ROS is otherwise negative Objective - Vital Signs/Intake and Output Vital Signs (last 24 hours): Temp Pulse Resp BP Pulse Ox 97.7 F 77 18 115/70 94 L 06/05/18 17:34 06/05/18 22:00 06/05/18 17:34 06/05/18 18:00 06/05/18 17:05 Intake and Output: 06/05/18 06/06/18 18:59 06:59 Intake Total 480 Balance 480 - Medications Medications: Current Medications Atorvastatin Calcium (Lipitor) 10 mg PO DIN [facility] Last Admin: 06/05/18 18:01 Dose: 10 mg Carbidopa/Levodopa (Sinemet) 1 tab PO BID [facility] Last Admin: 06/05/18 18:01 Dose: 1 tab Carvedilol (Coreg) 25 mg PO BID [facility] Last Admin: 06/05/18 18:00 Dose: 25 mg Docusate Sodium (Colace) 100 mg PO BID [facility] Last Admin: 06/05/18 18:00 Dose: 100 mg Famotidine (Pepcid) 40 mg PO HS [facility] Last Admin: 06/05/18 22:35 Dose: 40 mg Sodium Chloride (Sodium Chloride 0.9%) 1,000 mls @ 100 mls/hr IV .Q10H [facility] Last Admin: 06/06/18 00:17 Dose: 100 mls/hr Lamotrigine (Lamictal) 200 mg PO BID [facility] PRN Reason: Protocol Last Admin: 06/05/18 18:00 Dose: 200 mg Latanoprost (Xalatan Opht) 0 ml OU HS [facility] Last Admin: 06/05/18 00:42 Dose: 2.5 ml Lorazepam (Ativan) 2 mg IVP Q4 PRN; Protocol PRN Reason: Anxiety Last Admin: 06/06/18 02:18 Dose: 2 mg Losartan Potassium (Cozaar) 25 mg PO BID [facility] Last Admin: 06/05/18 18:00 Dose: 25 mg Mirtazapine (Remeron) 15 mg PO HS [facility] Last Admin: 06/05/18 22:35 Dose: 15 mg Tamsulosin HCl (Flomax) 0.4 mg PO HS [facility] Last Admin: 06/05/18 22:40 Dose: 0.4 mg Timolol Maleate (Timoptic 0.5% Ophth Soln) 1 drop OD DAILY [facility] Last Admin: 06/05/18 14:32 Dose: 1 drop - Labs Labs: 06/05/18 05:00 06/05/18 05:00 PT 11.1 SECONDS (9.4-12.5) 06/04/18 18:08 INR 0.97 06/04/18 18:08 APTT 30.2 Seconds (25.1-36.5) 06/04/18 18:08 - Constitutional Appears: Confused, Cachectic - Head Exam Head Exam: ATRAUMATIC, NORMOCEPHALIC - Additional Findings Additional findings: - Constitutional Appears: Well - Head Exam Head Exam: ATRAUMATIC, NORMOCEPHALIC Additional comments: scalp scar - Eye Exam Eye Exam: EOMI, Normal appearance, PERRL Pupil Exam: NORMAL ACCOMODATION, PERRL - ENT Exam ENT Exam: Mucous Membranes Moist, Normal Exam - Neck Exam Neck Exam: Full ROM, Normal Inspection. absent: Lymphadenopathy - Respiratory Exam Respiratory Exam: Clear to Ausculation Bilateral, NORMAL BREATHING PATTERN - Cardiovascular Exam Cardiovascular Exam: REGULAR RHYTHM, +S1, +S2. absent: Murmur - GI/Abdominal Exam GI & Abdominal Exam: Soft, Normal Bowel Sounds. absent: Tenderness - Back Exam Back Exam: NORMAL INSPECTION - Neurological Exam Neurological Exam: Alert, Awake, CN II-XII Intact, Oriented x3 Neuro motor strength exam: Right Upper Extremity: 3, Right Lower Extremity: 3 Additional comments: resting tremors b/l hands. cog wheel rigidity in upper extremity - Psychiatric Exam Psychiatric exam: flat Affect Additional comments: low volume voice Assessment and Plan - Assessment and Plan (Free Text) Assessment: 73 y/o male with PMH of HTN, HLD meningioma, Parkinson's disease, presented to the ED for witnessed seizure with post-ictal confusion and muscle weakness. Patient admitted to tele Plan: Seizure episode. history of seizure s/p meningioma resection. has 1 seisure episode per month. compliant with Lamictal treatment CPK [id number] IVF: NS @100cc/hr Head CT shows new right frontal extra-axial soft tissue lesion adjacent to frontal craniotomy measuring 2.4 x 2.3 cm. This finding appears new compared to prior study. Left posterior parafalcine soft tissue lesion seen on axial image 24 measuring 4.1 x 1.2 cm in axial dimension and 1.6 cm in craniocaudal dimension As per neurology consult Dr. Jenkins: increase Lamictal to 200 mg BID, MRI brain with and without contrast. Admit for observation and EEG. MRI brain: Two separate extra-axial masses along side the falx. There is a right anterior frontal mass and a left posterior frontal mass. These lesions appear to enhance. Findings suspicious for metastatic disease. Consult neurosurgery for outpatient management. continue Keppra 1000mg IV Q12H Continous video EEG continue Ativan 2mg q4 prn continue Lamictal 200mg po bid Parkinson's disease continue home carbidopa/levodopa continue mirtazipine for depression Microscoptic hematuria incidental finding in [facility] urology follow up as outpatient Patient couseling regarding malignancy risk flomax HTN -continue home carvedilol. losartan HLD continue home atorvastatin Prophylaxis GI ppx pepcid DVT ppx SCD Heart healthy diet fall prevention aspiration precautions seizure precautions neuro checks Case reviewed and plan discussed with attending Dr Blanco <Estee Blanco - Last Filed: 06/10/18 18:25> Objective - Vital Signs/Intake and Output Vital Signs (last 24 hours): Temp Pulse Resp BP Pulse Ox 98.5 F 83 21 118/68 94 L 06/10/18 17:22 06/10/18 17:22 06/10/18 17:22 06/10/18 17:22 06/10/18 17:22 Intake and Output: 06/10/18 06/10/18 06:59 18:59 Intake Total 1570 Balance 1570 - Medications Medications: Current Medications Atorvastatin Calcium (Lipitor) 10 mg PO DIN [facility] Last Admin: 06/09/18 17:34 Dose: 10 mg Carbidopa/Levodopa (Sinemet) 1 tab PO BID [facility] Last Admin: 06/10/18 09:26 Dose: 1 tab Carvedilol (Coreg) 25 mg PO BID [facility] Last Admin: 06/10/18 09:27 Dose: 25 mg Dexamethasone (Decadron Inj) 10 mg IVP Q8H [facility] Last Admin: 06/10/18 09:26 Dose: 10 mg Dextrose (Dextrose 50% Inj) 0 ml IV STAT PRN; Protocol PRN Reason: Hypoglycemia Protocol Docusate Sodium (Colace) 100 mg PO BID [facility] Last Admin: 06/10/18 09:27 Dose: 100 mg Famotidine (Pepcid) 40 mg PO HS [facility] Last Admin: 06/09/18 22:12 Dose: 40 mg Sodium Chloride (Sodium Chloride 0.9%) 1,000 mls @ 100 mls/hr IV .Q10H [facility] Last Admin: 06/06/18 00:17 Dose: 100 mls/hr Levetiracetam 1,000 mg/ Sodium (Chloride) 110 mls @ 460 mls/hr IV Q12 [facility] Last Admin: 06/10/18 09:35 Dose: 460 mls/hr Dextrose/Sodium Chloride (Dextrose 5%/0.45% Ns 1000 Ml) 1,000 mls @ 100 mls/hr IV .Q10H [facility] Last Admin: 06/09/18 17:37 Dose: 100 mls/hr Lamotrigine (Lamictal) 200 mg PO BID [facility] PRN Reason: Protocol Last Admin: 06/10/18 09:26 Dose: 200 mg Latanoprost (Xalatan Opht) 0 ml OU HS [facility] Last Admin: 06/09/18 22:15 Dose: 2.5 ml Levofloxacin (Levaquin) 250 mg PO DAILY [facility] Stop: 06/12/18 10:46 Last Admin: 06/10/18 09:26 Dose: 250 mg Lorazepam (Ativan) 2 mg IVP Q4 PRN; Protocol PRN Reason: Anxiety Last Admin: 06/09/18 22:12 Dose: 2 mg Losartan Potassium (Cozaar) 25 mg PO BID [facility] Last Admin: 06/10/18 09:27 Dose: 25 mg Mirtazapine (Remeron) 15 mg PO HS [facility] Last Admin: 06/09/18 22:12 Dose: 15 mg Tamsulosin HCl (Flomax) 0.4 mg PO HS [facility] Last Admin: 06/09/18 22:12 Dose: 0.4 mg Timolol Maleate (Timoptic 0.5% Oph Soln) 1 drop OD DAILY [facility] Last Admin: 06/10/18 09:26 Dose: 1 drop - Labs Labs: 06/10/18 05:30 06/10/18 05:30 PT 11.1 SECONDS (9.4-12.5) 06/04/18 18:08 INR 0.97 06/04/18 18:08 APTT 30.2 Seconds (25.1-36.5) 06/04/18 18:08 Attending/Attestation - Attestation I have personally seen and examined this patient.: Yes I have fully participated in the care of the patient.: Yes I have reviewed all pertinent clinical information, including history, physical exam and plan: Yes Notes (Text): 06/10/18 18:25 Medical record note made by the resident after discussion with my direction and input after the patient was personally seen and examined by me. I have reviewed the chart and agree that the record accurately reflects by personal performance of the history, physical exam, data review, and medical decision-making, in the course for the patient. I have also personally directed the plan of care.
[2018-06-06 06:32] LABS: BASO # 0.01 K/mm3 (0.0-2.0); BASO % 0.1 % (0.0-3.0); EOS # 0.1 (0.0-0.7); GRAN # 4.96 (1.4-6.5); GRAN % 69.2 % (50.0-68.0); LYMPH # 1.7 (1.2-3.4); LYMPH % 23.5 % (22.0-35.0); MEAN CELL VOLUME 95.9 fl (80.0-105.0); MEAN CORPUSCULAR HEMOGLOBIN 32.1 pg (25.0-35.0); MEAN CORPUSCULAR HGB CONC 33.4 g/dl (31.0-37.0); MEAN PLATELET VOLUME 8.5 fl (7.0-11.0); MONO # 0.4 (0.1-0.6); MONO % 5.2 % (1.0-6.0); RBC 3.9 10^6/uL (3.5-6.1); RED CELL DISTRIBUTION WIDTH 12.5 % (11.5-14.5); WHITE BLOOD COUNT 7.2 10^3/ul (4.5-11.0)
[2018-06-06 06:58] LABS: ALB/GLOB RATIO 1.4 (1.1-1.8); ALBUMIN 3.6 g/dL (3.0-4.8); ALT/SGPT 31 U/L (7-56); AST/SGOT 29 U/L (17-59); BLOOD UREA NITROGEN 18 mg/dL (7-21); CALCIUM 9.2 mg/dL (8.4-10.5); GFR NON-AFRICAN AMERICAN > 60
[2018-06-06 07:04] LABS: HEMOGLOBIN 12.5 g/dL (14.0-18.0)
[2018-06-06 10:01] LABS: ARTERIAL BLOOD GAS O2 SAT 97.2 % (95-98); ARTERIAL BLOOD GAS PCO2 43 mm/Hg (35-45); ARTERIAL BLOOD GAS PH 7.39 (7.35-7.45); ARTERIAL BLOOD GAS TCO2 27.3 mmol.L (22-28)
[2018-06-06] MEDS ORDERED: Dextrose 50% SYRINGE Inj (50 ml) IV PRN (10:06)
--- NOTE | 2018-06-06 10:09 | PCM.RRT ---
<Bala Mendes - Last Filed: 06/06/18 10:33> PILLOW FILLER Nurse Assessment - Situation Date: 06/06/18 Time PILLOW FILLER was called: 09:46 PILLOW FILLER Responder Arrival Time: 09:47 PILLOW FILLER Location:: [address] [place] [address] Room Number: 377-2 PILLOW FILLER Reason for Call: Not Responding to Urgent Treatment, Change in Mental Status , Looks Sicker PILLOW FILLER Called By: RN - IV IV Inserted during PILLOW FILLER?: No - Respiratory Oxygen Delivery Method: Nasal Cannula @L/min Oxygen Flow Rate: 2 Received Nebulizer Treatments:: No Was the Patient Ventilated with Bag/Mask 100% O2?: No Secretions Suctioned?: No Was the Patient Intubated?: No Was the Patient Placed on a Ventilator?: No - Diagnostic Test Ordered EKG: Yes Chest X-Ray: No CT Scan: No - Stat Labs Ordered PILLOW FILLER Stat Labs Ordered: CBC, BMP, ABG CPR started during PILLOW FILLER?: No - Vital Signs Vital Sign: Rapid Response Vital Sign Blood Pressure 103/67 Pulse Rate 86 Respiratory Rate 18 Temperature 98 F Oxygen Saturation 84 - Finger Stick Blood Glucose Finger Stick Blood Glucose: 92 - Vital Signs at end of PILLOW FILLER Vital Signs at end of PILLOW FILLER: Rapid Response End Vital Sign Temperature 98 F - Recommendations Notifications: Attending Physician, Family or Designated Caregiver - Respiratory Oxygen Delivery Method: Nasal Cannula @L/min Oxygen Flow Rate: 2 Plan - Assessment of Findings&Treatment Plan Bala Mendes- Internal Medicine Resident- House Doctor Subjective: PILLOW FILLER called on patient by RN for acute change in mental status. As per staff, patient was last seen awake and responsive this morning around 8AM. Patient did not respond to verbal stimuli prior to PILLOW FILLER. Staff denies seeing patient experience seizure like activity. Further subjective data cannot be attained at this time due to ams. 12 Point ROS cannot be ascertained due to altered mental status Physical Examination: - Constitutional Appears: No Acute Distress - Head Exam Head Exam: ATRAUMATIC - Eye Exam Pupil Exam: PERRL - ENT Exam ENT Exam: Mucous Membranes Moist - Respiratory Exam Respiratory Exam: Clear to Auscultation Bilateral. absent: Respiratory Distress - Cardiovascular Exam Cardiovascular Exam: RRR, +S1, +S2 - GI/Abdominal Exam GI & Abdominal Exam: Normal Bowel Sounds. absent: Firm, Guarding - Extremities Exam Extremities exam: Positive for: normal inspection. Negative for: calf tenderness - Neurological Exam Neurological exam: patient is not awake, alert, does not respond to verbal stimuli, does not follow commands, retracts from painful stimuli - Skin Skin Exam: Normal Color, Warm Assessment and Plan: Patient is a 73 year old male with PMHx of 2015 meningioma, parkinson's, HT and HLD who was admitted for evaluation and treatment of a witnessed seizure. PILLOW FILLER called on patient for altered mental status. Altered Mental Status - Likely in postictal state s/p seizure, neurological status improving with time - awake and responsive to verbal stimuli ~ 15 minutes are PILLOW FILLER was called - CBC, CMP, EKG, ABG - EKG- NSR HR 86 bpm, QTc 404ms, no defining ST- T wave changes - ABG reviewed- within normal limits - Patient made NPO- IVF NS stopped, started on D5 1/2NS @ 100, hypoglycemia protocol started - Neurology team contacted- recommend 1g of IV keppra, decadrone, continuing lamictal via NGT, and transfer of patient to continuous EEG Primary team made aware patient case. Family made aware by primary team. Patient case endorsed to and plan approved by attending physician, Dr. Blanco. <Estee Blanco - Last Filed: 06/10/18 18:24> PILLOW FILLER Nurse Assessment - Vital Signs Vital Sign: Rapid Response Vital Sign Blood Pressure 103/67 Pulse Rate 86 Respiratory Rate 18 Temperature 98 F Oxygen Saturation 84 - Vital Signs at end of PILLOW FILLER Vital Signs at end of PILLOW FILLER: Rapid Response End Vital Sign Temperature 98 F Attending/Attestation - Attestation I have fully participated in the care of the patient.: Yes I have reviewed all pertinent clinical information, including history, physical exam and plan: Yes
[2018-06-06] MEDS ORDERED: TETRACAINE/BENZOCAINE/BUTAMBEN 20 GM SPRAY TP STA (10:34)
[2018-06-06 10:35] LABS: BASO # 0.01 K/mm3 (0.0-2.0); BASO % 0.1 % (0.0-3.0); EOS # 0.1 (0.0-0.7); EOS % 1.9 % (1.5-5.0); GRAN # 4.56 (1.4-6.5); GRAN % 63.3 % (50.0-68.0); LYMPH # 2.1 (1.2-3.4); LYMPH % 29.4 % (22.0-35.0); MEAN CELL VOLUME 96.2 fl (80.0-105.0); MEAN CORPUSCULAR HEMOGLOBIN 32.6 pg (25.0-35.0); MEAN CORPUSCULAR HGB CONC 33.9 g/dl (31.0-37.0); MEAN PLATELET VOLUME 8.6 fl (7.0-11.0); MONO # 0.4 (0.1-0.6); MONO % 5.3 % (1.0-6.0); RBC 3.99 10^6/uL (3.5-6.1); RED CELL DISTRIBUTION WIDTH 12.4 % (11.5-14.5); WHITE BLOOD COUNT 7.2 10^3/ul (4.5-11.0)
[2018-06-06] MEDS: levETIRAcetam 1,000 MG in Sodium Chloride 0.9% 100 ML IV SCH ×2 (10:38→22:07)
[2018-06-06 11:19] LABS: ALB/GLOB RATIO 1.4 (1.1-1.8); ALBUMIN 3.9 g/dL (3.0-4.8); ALT/SGPT 44 U/L (7-56); AST/SGOT 25 U/L (17-59); BLOOD UREA NITROGEN 19 mg/dL (7-21); CALCIUM 9.3 mg/dL (8.4-10.5); GFR NON-AFRICAN AMERICAN 59
--- NOTE | 2018-06-06 11:26 | RAD ---
Date of service: 06/06/2018 HISTORY: s/p tube blacement COMPARISON: No prior. FINDINGS: LUNGS: No active pulmonary disease. PLEURA: No significant pleural effusion identified, no pneumothorax apparent. CARDIOVASCULAR: Normal. OSSEOUS STRUCTURES: No significant abnormalities. VISUALIZED UPPER ABDOMEN: Normal. OTHER FINDINGS: None. IMPRESSION: The feeding tube can be seen coiled in the gastric fundus in satisfactory position
--- NOTE | 2018-06-06 13:48 | CARD ---
APPROVED REPORT Date of service: 06/06/2018 EKG Measurement Heart [id number] <Conclusion> Normal sinus rhythm Normal ECG
--- NOTE | 2018-06-06 17:20 | CP.PCM.PN ---
<Jesse Velásquez R - Last Filed: 06/06/18 17:29> Subjective - Date & Time of Evaluation Date of Evaluation: 06/06/18 Time of Evaluation: 14:00 - Subjective Subjective: PGY-2 [address] note [address] Dr Alice Xiong DIELECTRIC MACHINE OPERATOR was called in the morning for altered mental status, likely patient was in postictal state s/p sustained seizure. After 30 minutes patient was awake and responsive to verbal stimuli, although very drowsy. Medications were adjusted and an NGT was placed so patient could receive his lamictal. Patient's family was later present and their questions were addressed. A continuous video EEG was placed. His brain MRI showed significant edema which explains his fluctuating mentation/AMS. Objective - Vital Signs/Intake and Output Vital Signs (last 24 hours): Temp Pulse Resp BP Pulse Ox 97.8 F 73 19 103/57 L 94 L 06/06/18 08:46 06/06/18 08:46 06/06/18 08:46 06/06/18 08:46 06/06/18 08:46 Intake and Output: 06/06/18 06/06/18 06:59 18:59 Intake Total 480 Balance 480 - Medications Medications: Current Medications Atorvastatin Calcium (Lipitor) 10 mg PO DIN [facility] Last Admin: 06/05/18 18:01 Dose: 10 mg Carbidopa/Levodopa (Sinemet) 1 tab PO BID [facility] Last Admin: 06/06/18 10:16 Dose: Not Given Carvedilol (Coreg) 25 mg PO BID [facility] Last Admin: 06/06/18 10:15 Dose: Not Given Dexamethasone (Decadron Inj) 10 mg IVP Q8H [facility] Last Admin: 06/06/18 10:36 Dose: 10 mg Dextrose (Dextrose 50% Inj) 0 ml IV STAT PRN; Protocol PRN Reason: Hypoglycemia Protocol Docusate Sodium (Colace) 100 mg PO BID [facility] Last Admin: 06/06/18 10:15 Dose: Not Given Famotidine (Pepcid) 40 mg PO HS [facility] Last Admin: 06/05/18 22:35 Dose: 40 mg Sodium Chloride (Sodium Chloride 0.9%) 1,000 mls @ 100 mls/hr IV .Q10H [facility] Last Admin: 06/06/18 00:17 Dose: 100 mls/hr Levetiracetam 1,000 mg/ Sodium (Chloride) 110 mls @ 460 mls/hr IV Q12 [facility] Last Admin: 06/06/18 10:38 Dose: 460 mls/hr Dextrose/Sodium Chloride (Dextrose 5%/0.45% Ns 1000 Ml) 1,000 mls @ 100 mls/hr IV .Q10H [facility] Lamotrigine (Lamictal) 200 mg PO BID [facility] PRN Reason: Protocol Last Admin: 06/06/18 13:53 Dose: 200 mg Latanoprost (Xalatan Opht) 0 ml OU HS [facility] Last Admin: 06/05/18 00:42 Dose: 2.5 ml Lorazepam (Ativan) 2 mg IVP Q4 PRN; Protocol PRN Reason: Anxiety Last Admin: 06/06/18 02:18 Dose: 2 mg Losartan Potassium (Cozaar) 25 mg PO BID [facility] Last Admin: 06/06/18 10:16 Dose: Not Given Mirtazapine (Remeron) 15 mg PO HS [facility] Last Admin: 06/05/18 22:35 Dose: 15 mg Tamsulosin HCl (Flomax) 0.4 mg PO [facility] Last Admin: 06/05/18 22:40 Dose: 0.4 mg Timolol Maleate (Timoptic 0.5% Oph Soln) 1 drop OD DAILY [facility] Last Admin: 06/05/18 14:32 Dose: 1 drop - Labs Labs: 06/06/18 09:57 06/06/18 10:00 PT 11.1 SECONDS (9.4-12.5) 06/04/18 18:08 INR 0.97 06/04/18 18:08 APTT 30.2 Seconds (25.1-36.5) 06/04/18 18:08 - Additional Findings Additional findings: - Constitutional Appears: Drowsy - Head Exam Head Exam: ATRAUMATIC, NORMOCEPHALIC Additional comments: scalp scar - Eye Exam Eye Exam: EOMI, Normal appearance, PERRL Pupil Exam: NORMAL ACCOMODATION, PERRL - ENT Exam ENT Exam: Mucous Membranes Moist, Normal Exam - Neck Exam Neck Exam: Full ROM, Normal Inspection. absent: Lymphadenopathy - Respiratory Exam Respiratory Exam: Clear to Ausculation Bilateral, NORMAL BREATHING PATTERN - Cardiovascular Exam Cardiovascular Exam: REGULAR RHYTHM, +S1, +S2. absent: Murmur - GI/Abdominal Exam GI & Abdominal Exam: Soft, Normal Bowel Sounds. absent: Tenderness - Back Exam Back Exam: NORMAL INSPECTION - Neurological Exam Neurological Exam: Alert, Awake, CN II-XII Intact Additional comments: Somnolent, opens eyes to painful stimulus, confused, not combative, responds verbally with simple words and looks around. CN 2-12 intact. Moves all extremities, but did not follow commands consistently. Reflexes are brisk with clonus and upgoing plantar responses bilaterally. Sensation intact. Gait not assessed. - Skin Skin Exam: Dry, Intact, Normal Color, Warm Assessment and Plan - Assessment and Plan (Free Text) Plan: Mr. Hatch is a 73-year-old man with a past medical history of seizure disorder due to frontal meningioma s/p resection and now with new cerebral masses, who had a prolonged episode of witnessed seizure recently and has been in a post-ictal state with multiple felt puller called on this admission for AMS: Seizure Disorder -Likely 2/2 multiple cerebral masses, current AMS likely due to post-ictal state -Keppra 1000mg IV Q12H -Lamictal 200mg po bid (given thru NGT) -Ativan 2mg Q4H prn for seizure activity -Continous video EEG -Seizure precautions, aspiration precautions, hob 30 degrees Meningioma -Previous meningioma increasing in size with new masses also found -Patient does not want surgical intervention -Head CT w/o contrast: * There is a mass arising from the left side of the posterior falx. Measuring 46 x 28 x 12 mm. This most likely represents a meningioma. A dural metastasis is also possible. There is vasogenic edema in the left hemisphere. There is chronic encephalomalacia in the right hemisphere. The mass has increased in size. -Brain MRI w/ and w/o contrast: * Two separate extra-axial masses along side the falx. There is a right anterior frontal mass and a left posterior frontal mass. These lesions appear to enhance. Findings suspicious for metastatic disease -Previous Brain MRI from [place] will be sent over Cerebral Edema -2/2 to increasing mass and/or possible metastatic disease -Decadron 10mg IVP Q8H Parkinson's Disease -Carbidopa/Levodopa 25/100mg po bid Case discussed with neurologist Dr Jenkins <Rakan Jenkins - Last Filed: 06/08/18 17:30> Objective - Vital Signs/Intake and Output Vital Signs (last 24 hours): Temp Pulse Resp BP Pulse Ox 97.9 F 80 20 139/80 98 06/08/18 06:00 06/08/18 06:00 06/08/18 06:00 06/08/18 06:00 06/08/18 06:00 - Medications Medications: Current Medications Atorvastatin Calcium (Lipitor) 10 mg PO DIN [facility] Last Admin: 06/07/18 17:38 Dose: 10 mg Carbidopa/Levodopa (Sinemet) 1 tab PO BID [facility] Last Admin: 06/08/18 09:52 Dose: 1 tab Carvedilol (Coreg) 25 mg PO BID [facility] Last Admin: 06/08/18 09:50 Dose: 25 mg Dexamethasone (Decadron Inj) 10 mg IVP Q8H [facility] Last Admin: 06/08/18 09:55 Dose: 10 mg Dextrose (Dextrose 50% Inj) 0 ml IV STAT PRN; Protocol PRN Reason: Hypoglycemia Protocol Docusate Sodium (Colace) 100 mg PO BID [facility] Last Admin: 06/08/18 09:49 Dose: Not Given Famotidine (Pepcid) 40 mg PO HS [facility] Last Admin: 06/07/18 22:00 Dose: 40 mg Sodium Chloride (Sodium Chloride 0.9%) 1,000 mls @ 100 mls/hr IV .Q10H [facility] Last Admin: 06/06/18 00:17 Dose: 100 mls/hr Levetiracetam 1,000 mg/ Sodium (Chloride) 110 mls @ 460 mls/hr IV Q12 [facility] Last Admin: 06/08/18 09:51 Dose: 460 mls/hr Dextrose/Sodium Chloride (Dextrose 5%/0.45% Ns 1000 Ml) 1,000 mls @ 100 mls/hr IV .Q10H [facility] Last Admin: 06/08/18 02:30 Dose: 100 mls/hr Levofloxacin/Dextrose (Levaquin 250mg) 250 mg in 50 mls @ 50 mls/hr IVPB DAILY [facility] PRN Reason: Protocol Last Admin: 06/08/18 09:51 Dose: 50 mls/hr Lamotrigine (Lamictal) 200 mg PO BID [facility] PRN Reason: Protocol Last Admin: 06/08/18 09:49 Dose: 200 mg Latanoprost (Xalatan Opht) 0 ml OU HS [facility] Last Admin: 06/07/18 22:00 Dose: 2.5 ml Lorazepam (Ativan) 2 mg IVP Q4 PRN; Protocol PRN Reason: Anxiety Last Admin: 06/07/18 22:00 Dose: 2 mg Losartan Potassium (Cozaar) 25 mg PO BID [facility] Last Admin: 06/08/18 09:49 Dose: 25 mg Mirtazapine (Remeron) 15 mg PO HS [facility] Last Admin: 06/07/18 22:00 Dose: 15 mg Tamsulosin HCl (Flomax) 0.4 mg PO HS [facility] Last Admin: 06/07/18 20:00 Dose: 0.4 mg Timolol Maleate (Timoptic 0.5% Ophth Soln) 1 drop OD DAILY [facility] Last Admin: 06/07/18 12:30 Dose: 1 drop - Labs Labs: 06/08/18 06:20 06/08/18 06:20 PT 11.1 SECONDS (9.4-12.5) 06/04/18 18:08 INR 0.97 06/04/18 18:08 APTT 30.2 Seconds (25.1-36.5) 06/04/18 18:08 Assessment and Plan (1) Meningioma Status: Acute (2) Seizure Status: Acute Attending/Attestation - Attestation I have personally seen and examined this patient.: Yes I have fully participated in the care of the patient.: Yes I have reviewed all pertinent clinical information, including history, physical exam and plan: Yes Notes (Text): 06/08/18 17:29 I agree with the assessment and plan. Will add Keppra and increase Lamictal. Continue Decadron 10 mg Q8, with plan to taper later.
[2018-06-06] MEDS: Latanoprost 2.5 ml Opht Soln OU SCH (22:09)
--- NOTE | 2018-06-07 06:27 | CP.PCM.PN ---
<Xavier Abreu - Last Filed: 06/07/18 17:00> Subjective - Date & Time of Evaluation Date of Evaluation: 06/07/18 Time of Evaluation: 06:15 - Subjective Subjective: Xavier Abreu DO PGY-1, Internal Medicine Resident. Hospitalist Progress Note Patient seen and examined at bedside. No seizure activity noted overnight. He pulled out his NG tube and IV line, reinserted by night float team. Patient was resting in bed. Patient is disoriented, mumbling in unknown words, repeats his address and name. Objective - Vital Signs/Intake and Output Vital Signs (last 24 hours): Temp Pulse Resp BP Pulse Ox 98.0 F 92 H 18 115/63 93 L 06/06/18 17:32 06/07/18 02:00 06/06/18 17:32 06/06/18 17:57 06/06/18 17:32 - Medications Medications: Current Medications Atorvastatin Calcium (Lipitor) 10 mg PO DIN [facility] Last Admin: 06/06/18 17:52 Dose: 10 mg Carbidopa/Levodopa (Sinemet) 1 tab PO BID [facility] Last Admin: 06/06/18 17:57 Dose: 1 tab Carvedilol (Coreg) 25 mg PO BID [facility] Last Admin: 06/06/18 17:57 Dose: 25 mg Dexamethasone (Decadron Inj) 10 mg IVP Q8H [facility] Last Admin: 06/07/18 03:01 Dose: 10 mg Dextrose (Dextrose 50% Inj) 0 ml IV STAT PRN; Protocol PRN Reason: Hypoglycemia Protocol Docusate Sodium (Colace) 100 mg PO BID [facility] Last Admin: 06/06/18 17:52 Dose: 100 mg Famotidine (Pepcid) 40 mg PO HS [facility] Last Admin: 06/06/18 23:50 Dose: 40 mg Sodium Chloride (Sodium Chloride 0.9%) 1,000 mls @ 100 mls/hr IV .Q10H [facility] Last Admin: 06/06/18 00:17 Dose: 100 mls/hr Levetiracetam 1,000 mg/ Sodium (Chloride) 110 mls @ 460 mls/hr IV Q12 [facility] Last Admin: 06/06/18 22:07 Dose: 460 mls/hr Dextrose/Sodium Chloride (Dextrose 5%/0.45% Ns 1000 Ml) 1,000 mls @ 100 mls/hr IV .Q10H [facility] Lamotrigine (Lamictal) 200 mg PO BID [facility] PRN Reason: Protocol Last Admin: 06/06/18 23:50 Dose: 200 mg Latanoprost (Xalatan Opht) 0 ml OU HS [facility] Last Admin: 06/06/18 22:09 Dose: 2.5 ml Lorazepam (Ativan) 2 mg IVP Q4 PRN; Protocol PRN Reason: Anxiety Last Admin: 06/06/18 23:18 Dose: 2 mg Losartan Potassium (Cozaar) 25 mg PO BID [facility] Last Admin: 06/06/18 17:52 Dose: 25 mg Mirtazapine (Remeron) 15 mg PO HS [facility] Last Admin: 06/06/18 23:51 Dose: 15 mg Tamsulosin HCl (Flomax) 0.4 mg PO HS [facility] Last Admin: 06/06/18 23:51 Dose: 0.4 mg Timolol Maleate (Timoptic 0.5% Oph Soln) 1 drop OD DAILY [facility] Last Admin: 06/06/18 17:54 Dose: 1 drop - Labs Labs: 06/06/18 09:57 06/06/18 10:00 PT 11.1 SECONDS (9.4-12.5) 06/04/18 18:08 INR 0.97 06/04/18 18:08 APTT 30.2 Seconds (25.1-36.5) 06/04/18 18:08 - Additional Findings Additional findings: - Constitutional Appears: Confused, Cachectic - Head Exam Head Exam: ATRAUMATIC, NORMOCEPHALIC - Additional Findings Additional findings: - Constitutional Appears: Well - Head Exam Head Exam: ATRAUMATIC, NORMOCEPHALIC Additional comments: scalp scar - Eye Exam Eye Exam: EOMI, Normal appearance, PERRL Pupil Exam: NORMAL ACCOMODATION, PERRL - ENT Exam ENT Exam: Mucous Membranes Moist, Normal Exam - Neck Exam Neck Exam: Full ROM, Normal Inspection. absent: Lymphadenopathy - Respiratory Exam Respiratory Exam: Clear to Ausculation Bilateral, NORMAL BREATHING PATTERN - Cardiovascular Exam Cardiovascular Exam: REGULAR RHYTHM, +S1, +S2. absent: Murmur - GI/Abdominal Exam GI & Abdominal Exam: Soft, Normal Bowel Sounds. absent: Tenderness - Back Exam Back Exam: NORMAL INSPECTION - Neurological Exam Neurological Exam: Alert, Awake, CN II-XII Intact, Oriented x3 Neuro motor strength exam: Right Upper Extremity: 3, Right Lower Extremity: 3 Additional comments: resting tremors b/l hands. cog wheel rigidity in upper extremity - Psychiatric Exam Psychiatric exam: flat Affect Additional comments: low volume voice Assessment and Plan - Assessment and Plan (Free Text) Assessment: 73 y/o male with PMH of HTN, HLD meningioma, Parkinson's disease, presented to the ED for witnessed seizure with post-ictal confusion and muscle weakness. Patient admitted to tele. [employer] called several times for seizure activity. On 24 hour EEG video. Plan: Seizure episode. history of seizure s/p meningioma resection. has 1 seisure episode per month. compliant with Lamictal treatment CPK [id number] IVF: NS @100cc/hr Head CT shows new right frontal extra-axial soft tissue lesion adjacent to frontal craniotomy measuring 2.4 x 2.3 cm. This finding appears new compared to prior study. Left posterior parafalcine soft tissue lesion seen on axial image 24 measuring 4.1 x 1.2 cm in axial dimension and 1.6 cm in craniocaudal dimension As per neurology consult Dr. Jenkins: increase Lamictal to 200 mg BID, MRI brain with and without contrast. Admit for observation and EEG. MRI brain: Two separate extra-axial masses along side the falx. There is a right anterior frontal mass and a left posterior frontal mass. These lesions appear to enhance. Findings suspicious for metastatic disease. Consult neurosurgery for outpatient management. continue Keppra 1000mg IV Q12H Continous video EEG continue Ativan 2mg q4 prn continue Lamictal 200mg po bid [employer] called several times for seizure activity On 24 hour video EEG monitoring per neurology consult note Dr Sanchez: encephalopathy superimposing dementia UTI Ucx: +enterococcus faecalis infection levaquin started Parkinson's disease continue home carbidopa/levodopa continue mirtazipine for depression Microscoptic hematuria incidental finding in [facility] urology follow up as outpatient Patient couseling regarding malignancy risk flomax HTN -continue home carvedilol. losartan HLD continue home atorvastatin Prophylaxis GI ppx pepcid DVT ppx SCD OT Speech and swallow eval NPO fall prevention aspiration precautions seizure precautions neuro checks head of bed elevation 30 degree Case reviewed and plan discussed with attending Dr Blanco <Irfan,Mohammad - Last Filed: 06/10/18 18:26> Objective - Vital Signs/Intake and Output Vital Signs (last 24 hours): Temp Pulse Resp BP Pulse Ox 98.5 F 83 21 118/68 94 L 06/10/18 17:22 06/10/18 17:22 06/10/18 17:22 06/10/18 17:22 06/10/18 17:22 Intake and Output: 06/10/18 06/10/18 06:59 18:59 Intake Total 1570 Balance 1570 - Medications Medications: Current Medications Atorvastatin Calcium (Lipitor) 10 mg PO DIN [facility] Last Admin: 06/09/18 17:34 Dose: 10 mg Carbidopa/Levodopa (Sinemet) 1 tab PO BID [facility] Last Admin: 06/10/18 09:26 Dose: 1 tab Carvedilol (Coreg) 25 mg PO BID [facility] Last Admin: 06/10/18 09:27 Dose: 25 mg Dexamethasone (Decadron Inj) 10 mg IVP Q8H [facility] Last Admin: 06/10/18 09:26 Dose: 10 mg Dextrose (Dextrose 50% Inj) 0 ml IV STAT PRN; Protocol PRN Reason: Hypoglycemia Protocol Docusate Sodium (Colace) 100 mg PO BID [facility] Last Admin: 06/10/18 09:27 Dose: 100 mg Famotidine (Pepcid) 40 mg PO HS [facility] Last Admin: 06/09/18 22:12 Dose: 40 mg Sodium Chloride (Sodium Chloride 0.9%) 1,000 mls @ 100 mls/hr IV .Q10H [facility] Last Admin: 06/06/18 00:17 Dose: 100 mls/hr Levetiracetam 1,000 mg/ Sodium (Chloride) 110 mls @ 460 mls/hr IV Q12 [facility] Last Admin: 06/10/18 09:35 Dose: 460 mls/hr Dextrose/Sodium Chloride (Dextrose 5%/0.45% Ns 1000 Ml) 1,000 mls @ 100 mls/hr IV .Q10H [facility] Last Admin: 06/09/18 17:37 Dose: 100 mls/hr Lamotrigine (Lamictal) 200 mg PO BID [facility] PRN Reason: Protocol Last Admin: 06/10/18 09:26 Dose: 200 mg Latanoprost (Xalatan Opht) 0 ml OU HS [facility] Last Admin: 06/09/18 22:15 Dose: 2.5 ml Levofloxacin (Levaquin) 250 mg PO DAILY [facility] Stop: 06/12/18 10:46 Last Admin: 06/10/18 09:26 Dose: 250 mg Lorazepam (Ativan) 2 mg IVP Q4 PRN; Protocol PRN Reason: Anxiety Last Admin: 06/09/18 22:12 Dose: 2 mg Losartan Potassium (Cozaar) 25 mg PO BID [facility] Last Admin: 06/10/18 09:27 Dose: 25 mg Mirtazapine (Remeron) 15 mg PO HS [facility] Last Admin: 06/09/18 22:12 Dose: 15 mg Tamsulosin HCl (Flomax) 0.4 mg PO HS [facility] Last Admin: 06/09/18 22:12 Dose: 0.4 mg Timolol Maleate (Timoptic 0.5% Oph Soln) 1 drop OD DAILY [facility] Last Admin: 06/10/18 09:26 Dose: 1 drop - Labs Labs: 06/10/18 05:30 06/10/18 05:30 PT 11.1 SECONDS (9.4-12.5) 06/04/18 18:08 INR 0.97 06/04/18 18:08 APTT 30.2 Seconds (25.1-36.5) 06/04/18 18:08 Attending/Attestation - Attestation I have personally seen and examined this patient.: Yes I have fully participated in the care of the patient.: Yes I have reviewed all pertinent clinical information, including history, physical exam and plan: Yes Notes (Text): 06/10/18 18:26 Medical record note made by the resident after discussion with my direction and input after the patient was personally seen and examined by me. I have reviewed the chart and agree that the record accurately reflects by personal performance of the history, physical exam, data review, and medical decision-making, in the course for the patient. I have also personally directed the plan of care.
[2018-06-07 06:34] LABS: GRAN # 5.79 (1.4-6.5); HEMOGLOBIN 13.2 g/dL (14.0-18.0); LYMPH # 0.8 (1.2-3.4); LYMPH % 12.5 % (22.0-35.0); MEAN CELL VOLUME 95.1 fl (80.0-105.0); MEAN CORPUSCULAR HEMOGLOBIN 32.5 pg (25.0-35.0); MEAN CORPUSCULAR HGB CONC 34.2 g/dl (31.0-37.0); MEAN PLATELET VOLUME 8.4 fl (7.0-11.0); MONO % 0.5 % (1.0-6.0); RBC 4.06 10^6/uL (3.5-6.1); RED CELL DISTRIBUTION WIDTH 12.2 % (11.5-14.5); WHITE BLOOD COUNT 6.7 10^3/ul (4.5-11.0)
[2018-06-07 07:02] LABS: ALB/GLOB RATIO 1.4 (1.1-1.8); ALBUMIN 4.1 g/dL (3.0-4.8); ALT/SGPT 51 U/L (7-56); AST/SGOT 27 U/L (17-59); BLOOD UREA NITROGEN 16 mg/dL (7-21); CALCIUM 9.5 mg/dL (8.4-10.5); GFR NON-AFRICAN AMERICAN > 60
--- NOTE | 2018-06-07 09:29 | RAD ---
Date of service: 06/07/2018 HISTORY: NG tube COMPARISON: No prior. FINDINGS: LUNGS: No active pulmonary disease. PLEURA: No significant pleural effusion identified, no pneumothorax apparent. CARDIOVASCULAR: Normal. OSSEOUS STRUCTURES: No significant abnormalities. VISUALIZED UPPER ABDOMEN: Normal. OTHER FINDINGS: None. IMPRESSION: The feeding tube is seen in satisfactory position in the fundus of the stomach
[2018-06-07] MEDS: levETIRAcetam 1,000 MG in Sodium Chloride 0.9% 100 ML IV SCH ×2 (10:59→22:00)
[2018-06-07] MEDS: levoFLOXacin 250 mg in D5W 250 MG/50 ML BAG IVPB SCH (11:26)
[2018-06-07] MEDS: Dextrose 5%/0.45% NS 1,000 ML IV SCH (11:30)
--- NOTE | 2018-06-07 11:34 | PCM.VEEG ---
Video EEG - Procedure Start Date: 06/06/18 Start Time: 13:10 End Date: 06/07/18 End Time: 06:40 - Interpretation Description of the study: DATA ACQUISITION: This was a multichannel inpatient video-EEG, a minimum of 22 channels were utilized, performed in accordance with recommendations specified by the [place] [employer] (Corinna Ornelas et al. ACNS Guideline 1: Minimum Technical Requirements for Performing Clinical Electroencephalography. Journal of Clinical Neurophysiology 2016;33:303-7). The 10-20 electrode placement system was utilized in accordance with guidelines detailed by the International Federation of Clinical Neurophysiology (Gela Paulson et al. The Ten- Twenty Electrode System of the International Federation. Recommendations for the Practice of Clinical Neurophysiology: Guidelines of the International Federation of Clinical Physiology 1999; EEG Suppl. 52.). DATA REVIEW / SPIKE DETECTION / DIGITAL ANALYSIS: The entire EEG was scanned and reviewed. Synchronized audio and video recording were reviewed at the time of each alarm and whenever an abnormality or suspicious activity was noted. The entire recording was analyzed utilizing an automated digital spike and seizure analysis program and all automatic spike and seizure detections were manually reviewed. A compressed spectral array was displayed and reviewed alongside the raw EEG tracings. In addition, further analysis of the EEG was performed when abnormalities were identified, including montage changes, dipole source localization, and frequency band identification. This study was attended 24 hours per day. EEG Finding during wakefulness: During active states, the EEG was characterized by 14-25 Hz, 15-30 uV activity bilaterally in fronto-central regions. Resting wakefulness was characterized by a symmetric posterior dominant rhythm of 9 to 10 Hz, 30-50 uV, which was reactive to eye opening and closing. Drowsiness was associated with slow roving eye movements, slowing and fragmentation of the posterior dominant rhythm, and bilateral 4-7 Hz, 40-70 uV theta activity, sometimes with a shifting predominance. Hyperventilation and photic stimulation were not performed EEG Finding during sleep: Light sleep was recorded and was characterized by fronto-central slowing at 5-7 H, 50-125 uV, sharp central vertex waves, bilateral sleep spindles, and K- complexes; shifting asymmetries were evident. Deeper stages of sleep were recorded and were characterized an increasing frequency of 1-4 Hz, 50-100 uV delta activity. REM sleep was also recorded and was characterized by mixed frequency (3-15 Hz) low voltage (< 20 uV) activity with clusters of rapid horizontal and vertical eye movements. There were no significant asymmetries noted during sleep. Interictal non-epileptiform abnormalities: None Interictal epileptiform abnormalities: None Ictal epileptiform abnormalities: None Induction procedures: None EVENTS/SEIZURES None - Impression Impression: This is a normal Video EEG monitoring study.
--- NOTE | 2018-06-07 20:36 | CP.PCM.PN ---
Subjective - Date & Time of Evaluation Date of Evaluation: 06/07/18 Time of Evaluation: 20:33 - Subjective Subjective: Mr. Hatch was seen and examined today at bedside. He appeared significantly better today. He was conversant and pleasant. Objective - Vital Signs/Intake and Output Vital Signs (last 24 hours): Temp Pulse Resp BP Pulse Ox 98.3 F 66 18 99/63 L 94 L 06/07/18 17:20 06/07/18 18:00 06/07/18 17:20 06/07/18 17:40 06/07/18 17:20 Intake and Output: 06/07/18 06/08/18 18:59 06:59 Intake Total 1200 Balance 1200 - Medications Medications: Current Medications Atorvastatin Calcium (Lipitor) 10 mg PO DIN [facility] Last Admin: 06/07/18 17:38 Dose: 10 mg Carbidopa/Levodopa (Sinemet) 1 tab PO BID [facility] Last Admin: 06/07/18 17:38 Dose: 1 tab Carvedilol (Coreg) 25 mg PO BID [facility] Last Admin: 06/07/18 17:39 Dose: Not Given Dexamethasone (Decadron Inj) 10 mg IVP Q8H [facility] Last Admin: 06/07/18 17:48 Dose: 10 mg Dextrose (Dextrose 50% Inj) 0 ml IV STAT PRN; Protocol PRN Reason: Hypoglycemia Protocol Docusate Sodium (Colace) 100 mg PO BID [facility] Last Admin: 06/07/18 17:40 Dose: Not Given Famotidine (Pepcid) 40 mg PO HS [facility] Last Admin: 06/06/18 23:50 Dose: 40 mg Sodium Chloride (Sodium Chloride 0.9%) 1,000 mls @ 100 mls/hr IV .Q10H [facility] Last Admin: 06/06/18 00:17 Dose: 100 mls/hr Levetiracetam 1,000 mg/ Sodium (Chloride) 110 mls @ 460 mls/hr IV Q12 [facility] Last Admin: 06/07/18 10:59 Dose: 460 mls/hr Dextrose/Sodium Chloride (Dextrose 5%/0.45% Ns 1000 Ml) 1,000 mls @ 100 mls/hr IV .Q10H [facility] Last Admin: 06/07/18 11:30 Dose: 100 mls/hr Levofloxacin/Dextrose (Levaquin 250mg) 250 mg in 50 mls @ 50 mls/hr IVPB DAILY [facility] PRN Reason: Protocol Last Admin: 06/07/18 11:26 Dose: 50 mls/hr Lamotrigine (Lamictal) 200 mg PO BID [facility] PRN Reason: Protocol Last Admin: 06/07/18 17:38 Dose: 200 mg Latanoprost (Xalatan Opht) 0 ml OU HS [facility] Last Admin: 06/06/18 22:09 Dose: 2.5 ml Lorazepam (Ativan) 2 mg IVP Q4 PRN; Protocol PRN Reason: Anxiety Last Admin: 06/06/18 23:18 Dose: 2 mg Losartan Potassium (Cozaar) 25 mg PO BID [facility] Last Admin: 06/07/18 17:40 Dose: Not Given Mirtazapine (Remeron) 15 mg PO HS [facility] Last Admin: 06/06/18 23:51 Dose: 15 mg Tamsulosin HCl (Flomax) 0.4 mg PO HS [facility] Last Admin: 06/06/18 23:51 Dose: 0.4 mg Timolol Maleate (Timoptic 0.5% Oph Soln) 1 drop OD DAILY [facility] Last Admin: 06/07/18 12:30 Dose: 1 drop - Labs Labs: 06/07/18 05:30 06/07/18 05:30 PT 11.1 SECONDS (9.4-12.5) 06/04/18 18:08 INR 0.97 06/04/18 18:08 APTT 30.2 Seconds (25.1-36.5) 06/04/18 18:08 - Neurological Exam Neurological Exam: Alert, Awake, CN II-XII Intact, Oriented x3 Neuro motor strength exam: Left Upper Extremity: 4, Right Upper Extremity: 4, Left Lower Extremity: 4, Right Lower Extremity: 4 Assessment and Plan (1) Meningioma Assessment & Plan: Continue current dose of decadron for the next 24 hours. Then begin tapering by decreasing to 10 mg Q12 for 3 days, then continue 6 mg Q12 with plan to follow up with neurology as outpatient for further care. PT/OT eval is recommended. Status: Acute (2) Seizure Assessment & Plan: Continue current seizure medications. Status: Acute
[2018-06-07] MEDS: Latanoprost 2.5 ml Opht Soln OU SCH (22:00)
[2018-06-08] MEDS: Dextrose 5%/0.45% NS 1,000 ML IV SCH (02:30)
[2018-06-08 07:07] LABS: GRAN # 6.67 (1.4-6.5); GRAN % 88.3 % (50.0-68.0); HEMOGLOBIN 12.4 g/dL (14.0-18.0); LYMPH # 0.8 (1.2-3.4); LYMPH % 10.5 % (22.0-35.0); MEAN CELL VOLUME 95.1 fl (80.0-105.0); MEAN CORPUSCULAR HEMOGLOBIN 32.2 pg (25.0-35.0); MEAN CORPUSCULAR HGB CONC 33.9 g/dl (31.0-37.0); MEAN PLATELET VOLUME 8.5 fl (7.0-11.0); MONO # 0.1 (0.1-0.6); MONO % 1.2 % (1.0-6.0); RBC 3.85 10^6/uL (3.5-6.1); RED CELL DISTRIBUTION WIDTH 12.3 % (11.5-14.5); WHITE BLOOD COUNT 7.6 10^3/ul (4.5-11.0)
[2018-06-08 07:12] LABS: ALB/GLOB RATIO 1.4 (1.1-1.8); ALBUMIN 3.7 g/dL (3.0-4.8); ALT/SGPT 57 U/L (7-56); AST/SGOT 30 U/L (17-59); BLOOD UREA NITROGEN 20 mg/dL (7-21); CALCIUM 9.2 mg/dL (8.4-10.5); GFR NON-AFRICAN AMERICAN > 60
[2018-06-08] MEDS: levETIRAcetam 1,000 MG in Sodium Chloride 0.9% 100 ML IV SCH ×2 (09:51→22:39)
[2018-06-08] MEDS: levoFLOXacin 250 mg in D5W 250 MG/50 ML BAG IVPB SCH (09:51)
--- NOTE | 2018-06-08 11:47 | CP.PCM.PN ---
<Xavier Abreu - Last Filed: 06/08/18 18:58> Subjective - Date & Time of Evaluation Date of Evaluation: 06/08/18 Time of Evaluation: 05:49 - Subjective Subjective: Xavier Abreu DO PGY-1, Internal Medicine Resident. Hospitalist Progress Note Patient seen and examined at bedside. No seizure activity noted overnight. He is more alert and orient today. Patient was resting in bed. Patient denied CP, SOB, fever, palpitations Objective - Vital Signs/Intake and Output Vital Signs (last 24 hours): Temp Pulse Resp BP Pulse Ox 97.9 F 80 20 139/80 98 06/08/18 06:00 06/08/18 06:00 06/08/18 06:00 06/08/18 06:00 06/08/18 06:00 - Medications Medications: Current Medications Atorvastatin Calcium (Lipitor) 10 mg PO DIN [facility] Last Admin: 06/07/18 17:38 Dose: 10 mg Carbidopa/Levodopa (Sinemet) 1 tab PO BID [facility] Last Admin: 06/08/18 09:52 Dose: 1 tab Carvedilol (Coreg) 25 mg PO BID [facility] Last Admin: 06/08/18 09:50 Dose: 25 mg Dexamethasone (Decadron Inj) 10 mg IVP Q8H [facility] Last Admin: 06/08/18 09:55 Dose: 10 mg Dextrose (Dextrose 50% Inj) 0 ml IV STAT PRN; Protocol PRN Reason: Hypoglycemia Protocol Docusate Sodium (Colace) 100 mg PO BID [facility] Last Admin: 06/08/18 09:49 Dose: Not Given Famotidine (Pepcid) 40 mg PO HS [facility] Last Admin: 06/07/18 22:00 Dose: 40 mg Sodium Chloride (Sodium Chloride 0.9%) 1,000 mls @ 100 mls/hr IV .Q10H [facility] Last Admin: 06/06/18 00:17 Dose: 100 mls/hr Levetiracetam 1,000 mg/ Sodium (Chloride) 110 mls @ 460 mls/hr IV Q12 [facility] Last Admin: 06/08/18 09:51 Dose: 460 mls/hr Dextrose/Sodium Chloride (Dextrose 5%/0.45% Ns 1000 Ml) 1,000 mls @ 100 mls/hr IV .Q10H [facility] Last Admin: 06/08/18 02:30 Dose: 100 mls/hr Levofloxacin/Dextrose (Levaquin 250mg) 250 mg in 50 mls @ 50 mls/hr IVPB DAILY [facility] PRN Reason: Protocol Last Admin: 06/08/18 09:51 Dose: 50 mls/hr Lamotrigine (Lamictal) 200 mg PO BID [facility] PRN Reason: Protocol Last Admin: 06/08/18 09:49 Dose: 200 mg Latanoprost (Xalatan Opht) 0 ml OU HS [facility] Last Admin: 06/07/18 22:00 Dose: 2.5 ml Lorazepam (Ativan) 2 mg IVP Q4 PRN; Protocol PRN Reason: Anxiety Last Admin: 06/07/18 22:00 Dose: 2 mg Losartan Potassium (Cozaar) 25 mg PO BID [facility] Last Admin: 06/08/18 09:49 Dose: 25 mg Mirtazapine (Remeron) 15 mg PO HS [facility] Last Admin: 06/07/18 22:00 Dose: 15 mg Tamsulosin HCl (Flomax) 0.4 mg PO HS [facility] Last Admin: 06/07/18 20:00 Dose: 0.4 mg Timolol Maleate (Timoptic 0.5% Ophth Soln) 1 drop OD DAILY [facility] Last Admin: 06/07/18 12:30 Dose: 1 drop - Labs Labs: 06/08/18 06:20 06/08/18 06:20 PT 11.1 SECONDS (9.4-12.5) 06/04/18 18:08 INR 0.97 06/04/18 18:08 APTT 30.2 Seconds (25.1-36.5) 06/04/18 18:08 - Constitutional Appears: Well, No Acute Distress - Head Exam Head Exam: ATRAUMATIC, NORMOCEPHALIC Additional comments: scalp scar - Eye Exam Eye Exam: EOMI, Normal appearance, PERRL Pupil Exam: NORMAL ACCOMODATION, PERRL - ENT Exam ENT Exam: Mucous Membranes Moist, Normal Exam - Neck Exam Neck Exam: Full ROM, Normal Inspection. absent: Lymphadenopathy - Respiratory Exam Respiratory Exam: Clear to Ausculation Bilateral, NORMAL BREATHING PATTERN - Cardiovascular Exam Cardiovascular Exam: REGULAR RHYTHM, +S1, +S2. absent: Murmur - GI/Abdominal Exam GI & Abdominal Exam: Soft, Normal Bowel Sounds. absent: Tenderness - Extremities Exam Extremities Exam: Full ROM, Normal Capillary Refill, Normal Inspection. absent : Joint Swelling, Pedal Edema - Back Exam Back Exam: NORMAL INSPECTION - Neurological Exam Neurological Exam: Alert, Awake Neuro motor strength exam: Right Upper Extremity: 3, Right Lower Extremity: 3 - Psychiatric Exam Psychiatric exam: Flat Affect - Skin Skin Exam: Dry, Intact, Normal Color Assessment and Plan - Assessment and Plan (Free Text) Assessment: 73 y/o male with PMH of HTN, HLD meningioma, Parkinson's disease, presented to the ED for witnessed seizure with post-ictal confusion and muscle weakness. Patient admitted to tele. PRODUCTION SPECIALIST called several times for seizure activity. He is off video EEG. No seizure reported Plan: Seizure episode. history of seizure s/p meningioma resection. has 1 seisure episode per month. compliant with Lamictal treatment CPK 458 IVF: NS @100cc/hr Head CT shows new right frontal extra-axial soft tissue lesion adjacent to frontal craniotomy measuring 2.4 x 2.3 cm. This finding appears new compared to prior study. Left posterior parafalcine soft tissue lesion seen on axial image 24 measuring 4.1 x 1.2 cm in axial dimension and 1.6 cm in craniocaudal dimension As per neurology consult Dr. Jenkins: increase Lamictal to 200 mg BID, MRI brain with and without contrast. Admit for observation and EEG. MRI brain: Two separate extra-axial masses along side the falx. There is a right anterior frontal mass and a left posterior frontal mass. These lesions appear to enhance. Findings suspicious for metastatic disease. Consult neurosurgery for outpatient management. continue Keppra 1000mg IV Q12H [facility] video EEG continue Ativan 2mg q4 prn continue Lamictal 200mg po bid [employer]IST called several times for seizure activity per neurology consult note Dr Sanchez: encephalopathy superimposing dementia oncology consulted. recs appreciated UTI Ucx: +enterococcus faecalis infection levaquin started Parkinson's disease continue home carbidopa/levodopa continue mirtazipine for depression Microscoptic hematuria incidental finding in [facility] urology follow up as outpatient Patient couseling regarding malignancy risk flomax HTN -continue home carvedilol. losartan HLD continue home atorvastatin Prophylaxis GI ppx pepcid DVT ppx SCD OT Speech and swallow eval: passed, diet advanced to soft as tolerated fall prevention aspiration precautions seizure precautions neuro checks head of bed elevation 30 degree Case reviewed and plan discussed with attending Dr Blanco <Estee Blanco - Last Filed: 06/10/18 18:26> Objective - Vital Signs/Intake and Output Vital Signs (last 24 hours): Temp Pulse Resp BP Pulse Ox 98.5 F 83 21 118/68 94 L 06/10/18 17:22 06/10/18 17:22 06/10/18 17:22 06/10/18 17:22 06/10/18 17:22 Intake and Output: 06/10/18 06/10/18 06:59 18:59 Intake Total 1570 Balance 1570 - Medications Medications: Current Medications Atorvastatin Calcium (Lipitor) 10 mg PO DIN [facility] Last Admin: 06/09/18 17:34 Dose: 10 mg Carbidopa/Levodopa (Sinemet) 1 tab PO BID [facility] Last Admin: 06/10/18 09:26 Dose: 1 tab Carvedilol (Coreg) 25 mg PO BID [facility] Last Admin: 06/10/18 09:27 Dose: 25 mg Dexamethasone (Decadron Inj) 10 mg IVP Q8H [facility] Last Admin: 06/10/18 09:26 Dose: 10 mg Dextrose (Dextrose 50% Inj) 0 ml IV STAT PRN; Protocol PRN Reason: Hypoglycemia Protocol Docusate Sodium (Colace) 100 mg PO BID [facility] Last Admin: 06/10/18 09:27 Dose: 100 mg Famotidine (Pepcid) 40 mg PO HS [facility] Last Admin: 06/09/18 22:12 Dose: 40 mg Sodium Chloride (Sodium Chloride 0.9%) 1,000 mls @ 100 mls/hr IV .Q10H [facility] Last Admin: 06/06/18 00:17 Dose: 100 mls/hr Levetiracetam 1,000 mg/ Sodium (Chloride) 110 mls @ 460 mls/hr IV Q12 [facility] Last Admin: 06/10/18 09:35 Dose: 460 mls/hr Dextrose/Sodium Chloride (Dextrose 5%/0.45% Ns 1000 Ml) 1,000 mls @ 100 mls/hr IV .Q10H [facility] Last Admin: 06/09/18 17:37 Dose: 100 mls/hr Lamotrigine (Lamictal) 200 mg PO BID [facility] PRN Reason: Protocol Last Admin: 06/10/18 09:26 Dose: 200 mg Latanoprost (Xalatan Opht) 0 ml OU HS [facility] Last Admin: 06/09/18 22:15 Dose: 2.5 ml Levofloxacin (Levaquin) 250 mg PO DAILY [facility] Stop: 06/12/18 10:46 Last Admin: 06/10/18 09:26 Dose: 250 mg Lorazepam (Ativan) 2 mg IVP Q4 PRN; Protocol PRN Reason: Anxiety Last Admin: 06/09/18 22:12 Dose: 2 mg Losartan Potassium (Cozaar) 25 mg PO BID [facility] Last Admin: 06/10/18 09:27 Dose: 25 mg Mirtazapine (Remeron) 15 mg PO HS [facility] Last Admin: 06/09/18 22:12 Dose: 15 mg Tamsulosin HCl (Flomax) 0.4 mg PO HS [facility] Last Admin: 06/09/18 22:12 Dose: 0.4 mg Timolol Maleate (Timoptic 0.5% Oph Soln) 1 drop OD DAILY [facility] Last Admin: 06/10/18 09:26 Dose: 1 drop - Labs Labs: 06/10/18 05:30 06/10/18 05:30 PT 11.1 SECONDS (9.4-12.5) 06/04/18 18:08 INR 0.97 06/04/18 18:08 APTT 30.2 Seconds (25.1-36.5) 06/04/18 18:08 Attending/Attestation - Attestation I have personally seen and examined this patient.: Yes I have fully participated in the care of the patient.: Yes I have reviewed all pertinent clinical information, including history, physical exam and plan: Yes Notes (Text): 06/10/18 18:26 Medical record note made by the resident after discussion with my direction and input after the patient was personally seen and examined by me. I have reviewed the chart and agree that the record accurately reflects by personal performance of the history, physical exam, data review, and medical decision-making, in the course for the patient. I have also personally directed the plan of care.
--- NOTE | 2018-06-08 12:55 | CP.PCM.CON ---
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 He has been followed closely by his neurosurgeon at [facility]. His last MRI in November 2017 revealed a 3.7 x 2.8cm stable midline lesion. Over the years as per his family , he has been progressively getting worse with falling after his treatment, and he was also diagnosed with Parkinson disease. He was admitted to [facility] with seizures. He had a CT of head on June 04, 2018 revealed a mass measuring 4.6 x 2.8 x 1.2cm mostly likely meningioma. A MRI of the brain on June 04, 2018 revealed a right frontal region measuring 1.6cm. The broad based left falcine lesion measuring 4.2 x 1.2cm. He is currently on decadron. We were asked to see him for our input. Review of Systems - Musculoskeletal Additional comments: rigidity due to parkinson Past Patient History - Infectious Disease Hx of Infectious Diseases: None - Tetanus Immunizations Tetanus Immunization: Unknown - Past Medical History & Family History Past Medical History?: Yes - Past Social History Smoking Status: Former Smoker - CARDIAC Hx Hypertension: Yes - PULMONARY Hx Respiratory Disorders: No - NEUROLOGICAL Hx Neurological Disorder: Yes Hx Seizures: Yes Other/Comment: craniotomy removal tumor 2014. brain tumor 2014 - HEENT Hx HEENT Problems: Yes Hx Cataracts: Yes Hx Glaucoma: Yes (left eye) - RENAL Hx Chronic Kidney Disease: Yes Other/Comment: over active bladder - ENDOCRINE/METABOLIC Hx Endocrine Disorders: No - HEMATOLOGICAL/ONCOLOGICAL Hx Blood Disorders: No - INTEGUMENTARY Hx Dermatological Problems: No - MUSCULOSKELETAL/RHEUMATOLOGICAL Hx Musculoskeletal Disorders: No Hx Falls: Yes (SZ) - GASTROINTESTINAL Hx Gastrointestinal Disorders: No - GENITOURINARY/GYNECOLOGICAL Hx Genitourinary Disorders: Yes (urine frequency) Hx Incontinence: Yes Other/Comment: over active bladder - PSYCHIATRIC Hx Psychophysiologic Disorder: No Hx Substance Use: No - SURGICAL HISTORY Hx Cardiac Catheterization: Yes Other/Comment: craniotomy removal tumor 2014, left hip surgery (2017) - ANESTHESIA Hx Anesthesia: Yes Hx Anesthesia Reactions: No Hx Malignant Hyperthermia: No Meds Allergies/Adverse Reactions: Allergies Allergy/AdvReac Type Severity Reaction Status Date / Time anesthetic-unknown name AdvReac Mild NAUSEA Uncoded 06/05/18 12:05 - Medications Medications: Current Medications Atorvastatin Calcium (Lipitor) 10 mg PO DIN [facility] Last Admin: 06/07/18 17:38 Dose: 10 mg Carbidopa/Levodopa (Sinemet) 1 tab PO BID [facility] Last Admin: 06/08/18 09:52 Dose: 1 tab Carvedilol (Coreg) 25 mg PO BID [facility] Last Admin: 06/08/18 09:50 Dose: 25 mg Dexamethasone (Decadron Inj) 10 mg IVP Q8H [facility] Last Admin: 06/08/18 09:55 Dose: 10 mg Dextrose (Dextrose 50% Inj) 0 ml IV STAT PRN; Protocol PRN Reason: Hypoglycemia Protocol Docusate Sodium (Colace) 100 mg PO BID [facility] Last Admin: 06/08/18 09:49 Dose: Not Given Famotidine (Pepcid) 40 mg PO HS [facility] Last Admin: 06/07/18 22:00 Dose: 40 mg Sodium Chloride (Sodium Chloride 0.9%) 1,000 mls @ 100 mls/hr IV .Q10H [facility] Last Admin: 06/06/18 00:17 Dose: 100 mls/hr Levetiracetam 1,000 mg/ Sodium (Chloride) 110 mls @ 460 mls/hr IV Q12 [facility] Last Admin: 06/08/18 09:51 Dose: 460 mls/hr Dextrose/Sodium Chloride (Dextrose 5%/0.45% Ns 1000 Ml) 1,000 mls @ 100 mls/hr IV .Q10H [facility] Last Admin: 06/08/18 02:30 Dose: 100 mls/hr Levofloxacin/Dextrose (Levaquin 250mg) 250 mg in 50 mls @ 50 mls/hr IVPB DAILY [facility] PRN Reason: Protocol Last Admin: 06/08/18 09:51 Dose: 50 mls/hr Lamotrigine (Lamictal) 200 mg PO BID [facility] PRN Reason: Protocol Last Admin: 06/08/18 09:49 Dose: 200 mg Latanoprost (Xalatan Opht) 0 ml OU HS [facility] Last Admin: 06/07/18 22:00 Dose: 2.5 ml Lorazepam (Ativan) 2 mg IVP Q4 PRN; Protocol PRN Reason: Anxiety Last Admin: 06/07/18 22:00 Dose: 2 mg Losartan Potassium (Cozaar) 25 mg PO BID [facility] Last Admin: 06/08/18 09:49 Dose: 25 mg Mirtazapine (Remeron) [address] [facility] Last Admin: 06/07/18 22:00 Dose: 15 mg Tamsulosin HCl (Flomax) 0.[address] [facility] Last Admin: 06/07/18 20:00 Dose: 0.4 mg Timolol Maleate (Timoptic 0.5% Ophth Soln) 1 drop OD DAILY [facility] Last Admin: 06/07/18 12:30 Dose: 1 drop Physical Exam - Eye Exam Eye Exam: EOMI - Respiratory Exam Respiratory Exam: Clear to Auscultation Bilateral - Cardiovascular Exam Cardiovascular Exam: REGULAR RHYTHM - GI/Abdominal Exam GI & Abdominal Exam: Normal Bowel Sounds - Neurological Exam Neurological exam: Alert Additional comments: increased muscle tone throughout Results - Vital Signs Recent Vital Signs: Last Vital Signs Temp 97.9 F 06/08/18 06:00 Pulse 80 06/08/18 06:00 Resp 20 06/08/18 06:00 BP 139/80 06/08/18 06:00 Pulse Ox 98 06/08/18 06:00 - Labs Result Diagrams: 06/08/18 06:20 06/08/18 06:20 Labs: Laboratory Results - last 24 hr 06/08/18 06/08/18 06:20 06:20 WBC 7.6 RBC 3.85 Hgb 12.4 L Hct 36.6 L MCV 95.1 MCH 32.2 MCHC 33.9 RDW 12.3 Plt Count 168 MPV 8.5 Gran % 88.3 H Lymph % (Auto) 10.5 L Cass % (Auto) 1.2 Eos % (Auto) 0.0 L Baso % (Auto) 0.0 Gran # 6.67 H Lymph # (Auto) 0.8 L Cass # (Auto) 0.1 Eos # (Auto) 0.0 Baso # (Auto) 0.00 Sodium 142 Potassium 4.0 Chloride 109 H Carbon Dioxide 23 Anion Gap 14 BUN 20 Creatinine 0.9 Est GFR ( Amer) > 60 Est GFR (Non-Af Amer) > 60 Random Glucose 154 H Calcium 9.2 Total Bilirubin 0.4 AST 30 ALT 57 H Alkaline Phosphatase 58 Total Protein 6.5 Albumin 3.7 Globulin 2.8 Albumin/Globulin Ratio 1.4 Assessment & Plan - Assessment and Plan (Free Text) Assessment: Mr Katja is a 73 year old male with an atypical meningioma status post subtotal resection and radiation in 2015 for 33 sessions who appears to have had disease progression. In speaking with the patient and his family, they do not want aggressive intervention. The patient is adamant he does not want surgery or anything that will not improve his quality of life. Given his radiation history, we do not feel additional radiation would improve his quality of life given the increased toxicity of reirradiation with increased of brain necrosis. The family concur that they want to just maintain his quality of life.
[2018-06-08] MEDS: Latanoprost 2.5 ml Opht Soln OU SCH (22:38)
[2018-06-09 07:10] LABS: GRAN # 6.09 (1.4-6.5); GRAN % 90.4 % (50.0-68.0); LYMPH # 0.6 (1.2-3.4); LYMPH % 8.6 % (22.0-35.0); MEAN CELL VOLUME 94.9 fl (80.0-105.0); MEAN CORPUSCULAR HEMOGLOBIN 32.5 pg (25.0-35.0); MEAN CORPUSCULAR HGB CONC 34.3 g/dl (31.0-37.0); MEAN PLATELET VOLUME 8.6 fl (7.0-11.0); MONO # 0.1 (0.1-0.6); PLATELET COUNT 146 10^3/uL (120.0-450.0); RBC 3.69 10^6/uL (3.5-6.1); RED CELL DISTRIBUTION WIDTH 12.2 % (11.5-14.5); WHITE BLOOD COUNT 6.7 10^3/ul (4.5-11.0)
[2018-06-09 07:31] LABS: ALB/GLOB RATIO 1.4 (1.1-1.8); ALBUMIN 3.6 g/dL (3.0-4.8); ALT/SGPT 170 U/L (7-56); AST/SGOT 117 U/L (17-59); BLOOD UREA NITROGEN 29 mg/dL (7-21); GFR NON-AFRICAN AMERICAN > 60
[2018-06-09 07:44] LABS: BAND 1 % (0-2); LYMPHOCYTE 5 % (22.0-35.0); NEUTROPHIL 94 % (50.0-70.0)
[2018-06-09 07:45] LABS: PLATELET ESTIMATE NORMAL (NORMAL)
[2018-06-09] MEDS: levETIRAcetam 1,000 MG in Sodium Chloride 0.9% 100 ML IV SCH ×2 (10:14→22:12)
[2018-06-09] MEDS: levoFLOXacin 250 mg in D5W 250 MG/50 ML BAG IVPB SCH (10:36)
--- NOTE | 2018-06-09 13:56 | CP.PCM.PN ---
Addendum entered and electronically signed by Sam Henderson DO 06/09/18 18:06: Discussed with and sons at bedside patient's poor prognosis, lack of treatment options for the brain masses, and possible pending outcomes (i.e. worse brain swelling, increased freq seizures, etc). Patient attempted to participate as well, but seems to be having some expressive aphasia (knows he is repeating wrong words, gets frustrated, but unable to stop saying the wrong words). Family aware of grim prognosis, likely terminal effects from brain masses. Still undecided on hospice care, want more time to think it over. Confirmed the DNI/DNR remains in place. Family asked about feeding the patient, and explained that we can start on pureed diet with thickened liquids, but pt remains high aspiration risk due to recurrent seizures. Family enquired about feeding more substantive foods; explained concept of pleasure feeds, and risk of aspiration associated with the pleasure feeds. Explained that aspiration would hasten . They will consider, but will hold off for now. Original Note: <Xavier Abreu - Last Filed: 06/09/18 14:05> Subjective - Date & Time of Evaluation Date of Evaluation: 06/09/18 Time of Evaluation: 05:55 - Subjective Subjective: Xavier Abreu DO PGY-1, Internal Medicine Resident. Hospitalist Progress Note Patient seen and examined at bedside. No seizure activity noted overnight. He is responsive to chest rubbing, mumbling in few words. Unable to communicate with the patient to get ROS but per nurse, no acute events. Objective - Vital Signs/Intake and Output Vital Signs (last 24 hours): Temp Pulse Resp BP Pulse Ox 98.2 F 63 19 112/68 94 L 06/09/18 06:00 06/09/18 10:13 06/09/18 06:00 06/09/18 10:13 06/09/18 06:00 - Medications Medications: Current Medications Atorvastatin Calcium (Lipitor) 10 mg PO DIN [facility] Last Admin: 06/08/18 17:36 Dose: 10 mg Carbidopa/Levodopa (Sinemet) 1 tab PO BID [facility] Last Admin: 06/09/18 10:12 Dose: 1 tab Carvedilol (Coreg) 25 mg PO BID [facility] Last Admin: 06/09/18 10:13 Dose: 25 mg Dexamethasone (Decadron Inj) 10 mg IVP Q8H [facility] Last Admin: 06/09/18 10:13 Dose: 10 mg Dextrose (Dextrose 50% Inj) 0 ml IV STAT PRN; Protocol PRN Reason: Hypoglycemia Protocol Docusate Sodium (Colace) 100 mg PO BID [facility] Last Admin: 06/09/18 10:13 Dose: 100 mg Famotidine (Pepcid) 40 mg PO HS [facility] Last Admin: 06/08/18 22:38 Dose: 40 mg Sodium Chloride (Sodium Chloride 0.9%) 1,000 mls @ 100 mls/hr IV .Q10H [facility] Last Admin: 06/06/18 00:17 Dose: 100 mls/hr Levetiracetam 1,000 mg/ Sodium (Chloride) 110 mls @ 460 mls/hr IV Q12 [facility] Last Admin: 06/09/18 10:14 Dose: 460 mls/hr Dextrose/Sodium Chloride (Dextrose 5%/0.45% Ns 1000 Ml) 1,000 mls @ 100 mls/hr IV .Q10H [facility] Last Admin: 06/08/18 02:30 Dose: 100 mls/hr Lamotrigine (Lamictal) 200 mg PO BID [facility] PRN Reason: Protocol Last Admin: 06/09/18 10:12 Dose: 200 mg Latanoprost (Xalatan Opht) 0 ml OU HS [facility] Last Admin: 06/08/18 22:38 Dose: 2.5 ml Levofloxacin (Levaquin) 250 mg PO DAILY [facility] Stop: 06/12/18 10:46 Lorazepam (Ativan) 2 mg IVP Q4 PRN; Protocol PRN Reason: Anxiety Last Admin: 06/09/18 01:54 Dose: 2 mg Losartan Potassium (Cozaar) 25 mg PO BID [facility] Last Admin: 06/09/18 10:13 Dose: 25 mg Mirtazapine (Remeron) 15 mg PO HS [facility] Last Admin: 06/08/18 22:38 Dose: 15 mg Tamsulosin HCl (Flomax) 0.4 mg PO HS [facility] Last Admin: 06/08/18 22:38 Dose: 0.4 mg Timolol Maleate (Timoptic 0.5% Ophth Soln) 1 drop OD DAILY [facility] Last Admin: 06/09/18 10:13 Dose: 1 drop - Labs Labs: 06/09/18 06:45 06/09/18 06:45 PT 11.1 SECONDS (9.4-12.5) 06/04/18 18:08 INR 0.97 06/04/18 18:08 APTT 30.2 Seconds (25.1-36.5) 06/04/18 18:08 - Additional Findings Additional findings: - Head Exam Head Exam: ATRAUMATIC, NORMOCEPHALIC Additional comments: scalp scar - Eye Exam Eye Exam: EOMI, Normal appearance, PERRL Pupil Exam: NORMAL ACCOMODATION, PERRL - ENT Exam ENT Exam: Mucous Membranes Moist, Normal Exam - Neck Exam Neck Exam: Full ROM, Normal Inspection. absent: Lymphadenopathy - Respiratory Exam Respiratory Exam: Clear to Ausculation Bilateral, NORMAL BREATHING PATTERN - Cardiovascular Exam Cardiovascular Exam: REGULAR RHYTHM, +S1, +S2. absent: Murmur - GI/Abdominal Exam GI & Abdominal Exam: Soft, Normal Bowel Sounds. absent: Tenderness - Extremities Exam Extremities Exam: Full ROM, Normal Capillary Refill, Normal Inspection. absent : Joint Swelling, Pedal Edema - Back Exam Back Exam: NORMAL INSPECTION - Neurological Exam Neurological Exam: responsive to chest rub, mumbles in few words Neuro motor strength exam: Right Upper Extremity: 3, Right Lower Extremity: 3 - Psychiatric Exam Psychiatric exam: Flat Affect, altered - Skin Skin Exam: Dry, Intact, Normal Color Assessment and Plan - Assessment and Plan (Free Text) Assessment: 73 y/o male with PMH of HTN, HLD meningioma, Parkinson's disease, presented to the ED for witnessed seizure with post-ictal confusion and muscle weakness. Patient admitted to tele. DIRECTOR OF CHILD WELFARE [employer] called several times for seizure activity. He is off video EEG. No seizure reported. Patient is DNR/DNI Plan: Seizure episode. history of seizure s/p meningioma resection. has 1 seisure episode per month. compliant with Lamictal treatment CPK [id number] IVF:D5 @100cc/hr Head CT shows new right frontal extra-axial soft tissue lesion adjacent to frontal craniotomy measuring 2.4 x 2.3 cm. This finding appears new compared to prior study. Left posterior parafalcine soft tissue lesion seen on axial image 24 measuring 4.1 x 1.2 cm in axial dimension and 1.6 cm in craniocaudal dimension As per neurology consult Dr. Jenkins: increase Lamictal to 200 mg BID, MRI brain with and without contrast. Admit for observation and EEG. MRI brain: Two separate extra-axial masses along side the falx. There is a right anterior frontal mass and a left posterior frontal mass. These lesions appear to enhance. Findings suspicious for metastatic disease. Consult neurosurgery for outpatient management. continue Keppra 1000mg IV Q12H [facility] video EEG continue Ativan 2mg q4 prn continue Lamictal 200mg po bid [employer]OR [employer]ELF[employer] called several times for seizure activity per neurology consult note Dr Sanchez: encephalopathy superimposing dementia oncology consulted: patient has multiple brain lesions. will not benefit from re -irradiation. hospice care [facility] consulted UTI Ucx: +enterococcus faecalis infection levaquin started Parkinson's disease continue home carbidopa/levodopa continue mirtazipine for depression Microscoptic hematuria incidental finding in UA flomax HTN -continue home carvedilol. losartan HLD continue home atorvastatin Prophylaxis GI ppx pepcid DVT ppx SCD Patient is DNR/DNI as per patient living will NPO fall prevention aspiration precautions seizure precautions neuro checks head of bed elevation 30 degree Case reviewed and plan discussed with attending Dr Blanco <Estee Blanco - Last Filed: 06/10/18 18:23> Objective - Vital Signs/Intake and Output Vital Signs (last 24 hours): Temp Pulse Resp BP Pulse Ox 98.5 F 83 21 118/68 94 L 06/10/18 17:22 18 17:22 06/10/18 17:22 06/10/18 17:22 06/10/18 17:22 Intake and Output: 06/10/18 06/10/18 06:59 18:59 Intake Total 1570 Balance 1570 - Medications Medications: Current Medications Atorvastatin Calcium (Lipitor) 10 mg PO DIN [facility] Last Admin: 06/09/18 17:34 Dose: 10 mg Carbidopa/Levodopa (Sinemet) 1 tab PO BID [facility] Last Admin: 06/10/18 09:26 Dose: 1 tab Carvedilol (Coreg) 25 mg PO BID [facility] Last Admin: 06/10/18 09:27 Dose: 25 mg Dexamethasone (Decadron Inj) 10 mg IVP Q8H [facility] Last Admin: 06/10/18 09:26 Dose: 10 mg Dextrose (Dextrose 50% Inj) 0 ml IV STAT PRN; Protocol PRN Reason: Hypoglycemia Protocol Docusate Sodium (Colace) 100 mg PO BID [facility] Last Admin: 06/10/18 09:27 Dose: 100 mg Famotidine (Pepcid) 40 mg PO HS [facility] Last Admin: 06/09/18 22:12 Dose: 40 mg Sodium Chloride (Sodium Chloride 0.9%) 1,000 mls @ 100 mls/hr IV .Q10H [facility] Last Admin: 06/06/18 00:17 Dose: 100 mls/hr Levetiracetam 1,000 mg/ Sodium (Chloride) 110 mls @ 460 mls/hr IV Q12 [facility] Last Admin: 06/10/18 09:35 Dose: 460 mls/hr Dextrose/Sodium Chloride (Dextrose 5%/0.45% Ns 1000 Ml) 1,000 mls @ 100 mls/hr IV .Q10H [facility] Last Admin: 06/09/18 17:37 Dose: 100 mls/hr Lamotrigine (Lamictal) 200 mg PO BID [facility] PRN Reason: Protocol Last Admin: 06/10/18 09:26 Dose: 200 mg Latanoprost (Xalatan Opht) 0 ml OU HS [facility] Last Admin: 06/09/18 22:15 Dose: 2.5 ml Levofloxacin (Levaquin) 250 mg PO DAILY [facility] Stop: 06/12/18 10:46 Last Admin: 06/10/18 09:26 Dose: 250 mg Lorazepam (Ativan) 2 mg IVP Q4 PRN; Protocol PRN Reason: Anxiety Last Admin: 06/09/18 22:12 Dose: 2 mg Losartan Potassium (Cozaar) 25 mg PO BID [facility] Last Admin: 06/10/18 09:27 Dose: 25 mg Mirtazapine (Remeron) 15 mg PO HS [facility] Last Admin: 06/09/18 22:12 Dose: 15 mg Tamsulosin HCl (Flomax) 0.4 mg PO HS [facility] Last Admin: 06/09/18 22:12 Dose: 0.4 mg Timolol Maleate (Timoptic 0.5% Ophth Soln) 1 drop OD DAILY [facility] Last Admin: 06/10/18 09:26 Dose: 1 drop - Labs Labs: 06/10/18 05:30 06/10/18 05:30 PT 11.1 SECONDS (9.4-12.5) 06/04/18 18:08 INR 0.97 06/04/18 18:08 APTT 30.2 Seconds (25.1-36.5) 06/04/18 18:08 Attending/Attestation - Attestation I have personally seen and examined this patient.: Yes I have fully participated in the care of the patient.: Yes I have reviewed all pertinent clinical information, including history, physical exam and plan: Yes Notes (Text): 06/10/18 18:21 Medical record note made by the resident after discussion with my direction and input after the patient was personally seen and examined by me. I have reviewed the chart and agree that the record accurately reflects by personal performance of the history, physical exam, data review, and medical decision-making, in the course for the patient. I have also personally directed the plan of care. 73 y/o male with PMH of HTN, HLD meningioma,SP resection , Parkinson's disease, presented to the ED for witnessed seizure with post-ictal confusion and muscle weakness. Head CT shows new right frontal extra-axial soft tissue lesion adjacent to frontal craniotomy measuring 2.4 x 2.3 cm. This finding appears new compared to prior study. Left posterior parafalcine soft tissue lesion seen on axial image 24 measuring 4.1 x 1.2 cm in axial dimension and 1.6 cm in craniocaudal dimension. MRI brain: Two separate extra-axial masses along side the falx. There is a right anterior frontal mass and a left posterior frontal mass. These lesions appear to enhance. DIRECTOR OF CHILD WELFARE SERVICES called several times for seizure activity. He is off video EEG. No seizure reported..Patient is on IV steroid, Keppra and Lamectal.Patient has refused any Surgery, Radiation oncology evaluation, not candidate for radiation, Oncology has recommended palliative care, Case was discussed with patient over the phone.Prognosis was discussed.Palliative care is consulted. Patient is now DNR/DNI. Prognosis is guarded.
--- NOTE | 2018-06-09 14:05 | CP.PCM.CON ---
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 He [place] [facility] [place] after suffering a significant seizure. Family reports that he has been getting progressively weaker and falling. CT of head 06/04 showed two separate extra axial masses along the side falx. There is a right anterior frontal mass and left posterior frontal mass, findings suspicious for metastatic disease. MRI of brain 06/04 showed a 46 x 28 x 12 mm mass arising from the left side of posterior falx, most likely representing a meningioma or dural metastasis. there is vasogenic edema in the left hemisphere, there is chronic encephalomalacia in the right hemisphere, the mass has increased in size. Labs: Wbc 6.5,Hgb 14.4, Plt 172, Na 140. K 4.0, Bun 26, Creat 1.1,glucose 115, Mag 2.4, ASt40. Alt 58, LDH 466, TCK 458, albumin 4.4 coag's normal,urine small bacteria, leukocytes, trace protein PMHx: atypcial meningioma, HTN,glaucoma. PSHx: subtotal resection of meningioma 2014 Family History: Non contributory. Social History:Non smoker, no alcohol or drug use. Lives with spouse Advance Care Planing: The patient has an Advanced Directive, a copy is in the chart. Review of Systems: As per HPI, patient is unresponsive. Past Patient History - Infectious Disease Hx of Infectious Diseases: None - Tetanus Immunizations Tetanus Immunization: Unknown - Past Medical History & Family History Past Medical History?: Yes - Past Social History Smoking Status: Former Smoker - CARDIAC Hx Hypertension: Yes - PULMONARY Hx Respiratory Disorders: No - NEUROLOGICAL Hx Neurological Disorder: Yes Hx Seizures: Yes Other/Comment: craniotomy removal tumor 2014. brain tumor 2015 - HEENT Hx HEENT Problems: Yes Hx Cataracts: Yes Hx Glaucoma: Yes (left eye) - RENAL Hx Chronic Kidney Disease: Yes Other/Comment: over active bladder - ENDOCRINE/METABOLIC Hx Endocrine Disorders: No - HEMATOLOGICAL/ONCOLOGICAL Hx Blood Disorders: No - INTEGUMENTARY Hx Dermatological Problems: No - MUSCULOSKELETAL/RHEUMATOLOGICAL Hx Musculoskeletal Disorders: No Hx Falls: Yes (SZ) - GASTROINTESTINAL Hx Gastrointestinal Disorders: No - GENITOURINARY/GYNECOLOGICAL Hx Genitourinary Disorders: Yes (urine frequency) Hx Incontinence: Yes Other/Comment: over active bladder - PSYCHIATRIC Hx Psychophysiologic Disorder: No Hx Substance Use: No - SURGICAL HISTORY Hx Cardiac Catheterization: Yes Other/Comment: craniotomy removal tumor 2015, left hip surgery (2017) - ANESTHESIA Hx Anesthesia: Yes Hx Anesthesia Reactions: No Hx Malignant Hyperthermia: No Meds Allergies/Adverse Reactions: Allergies Allergy/AdvReac Type Severity Reaction Status Date / Time anesthetic-unknown name AdvReac Mild NAUSEA Uncoded 06/05/18 12:05 - Medications Medications: Current Medications Atorvastatin Calcium (Lipitor) 10 mg PO DIN [facility] Last Admin: 06/08/18 17:36 Dose: 10 mg Carbidopa/Levodopa (Sinemet) 1 tab PO BID [facility] Last Admin: 06/09/18 10:12 Dose: 1 tab Carvedilol (Coreg) 25 mg PO BID [facility] Last Admin: 06/09/18 10:13 Dose: 25 mg Dexamethasone (Decadron Inj) 10 mg IVP Q8H [facility] Last Admin: 06/09/18 10:13 Dose: 10 mg Dextrose (Dextrose 50% Inj) 0 ml IV STAT PRN; Protocol PRN Reason: Hypoglycemia Protocol Docusate Sodium (Colace) 100 mg PO BID [facility] Last Admin: 06/09/18 10:13 Dose: 100 mg Famotidine (Pepcid) 40 mg PO HS [facility] Last Admin: 06/08/18 22:38 Dose: 40 mg Sodium Chloride (Sodium Chloride 0.9%) 1,000 mls @ 100 mls/hr IV .Q10H [facility] Last Admin: 06/06/18 00:17 Dose: 100 mls/hr Levetiracetam 1,000 mg/ Sodium (Chloride) 110 mls @ 460 mls/hr IV Q12 [facility] Last Admin: 06/09/18 10:14 Dose: 460 mls/hr Dextrose/Sodium Chloride (Dextrose 5%/0.45% Ns 1000 Ml) 1,000 mls @ 100 mls/hr IV .Q10H [facility] Last Admin: 06/08/18 02:30 Dose: 100 mls/hr Lamotrigine (Lamictal) 200 mg PO BID [facility] PRN Reason: Protocol Last Admin: 06/09/18 10:12 Dose: 200 mg Latanoprost (Xalatan Opht) 0 ml OU HS [facility] Last Admin: 06/08/18 22:38 Dose: 2.5 ml Levofloxacin (Levaquin) 250 mg PO DAILY [facility] Stop: 06/12/18 10:46 Lorazepam (Ativan) 2 mg IVP Q4 PRN; Protocol PRN Reason: Anxiety Last Admin: 06/09/18 01:54 Dose: 2 mg Losartan Potassium (Cozaar) 25 mg PO BID [facility] Last Admin: 06/09/18 10:13 Dose: 25 mg Mirtazapine (Remeron) 15 mg PO HS [facility] Last Admin: 06/08/18 22:38 Dose: 15 mg Tamsulosin HCl (Flomax) 0.4 mg PO [facility] Last Admin: 06/08/18 22:38 Dose: 0.4 mg Timolol Maleate (Timoptic 0.5% Oph Soln) 1 drop OD DAILY [facility] Last Admin: 06/09/18 10:13 Dose: 1 drop Physical Exam - Constitutional Appears: Chronically Ill - Head Exam Head Exam: NORMOCEPHALIC - Eye Exam Eye Exam: PERRL - ENT Exam ENT Exam: Mucous Membranes Moist, Normal Oropharynx - Neck Exam Neck exam: Positive for: Normal Inspection - Respiratory Exam Respiratory Exam: Decreased Breath Sounds, NORMAL BREATHING PATTERN - Cardiovascular Exam Cardiovascular Exam: REGULAR RHYTHM, +S1, +S2 - GI/Abdominal Exam GI & Abdominal Exam: Hypoactive Bowel Sounds, Soft Additional comments: Dobhoff in place - Extremities Exam Extremities exam: Positive for: full ROM, pedal pulses present - Back Exam Back exam: NORMAL INSPECTION - Neurological Exam Neurological exam: Altered - Skin Skin Exam: Dry, Pallor, Warm - Additional Findings Additional findings: Palliative performance scale rating 30% Results - Vital Signs Recent Vital Signs: Last Vital Signs Temp 98.2 F 06/09/18 06:00 Pulse 63 06/09/18 10:13 Resp 19 06/09/18 06:00 BP 112/68 06/09/18 10:13 Pulse Ox 94 L 06/09/18 06:00 - Labs Result Diagrams: 06/09/18 06:45 06/09/18 06:45 Labs: Laboratory Results - last 24 hr 06/09/18 06/09/18 06:45 06:45 WBC 6.7 RBC 3.69 Hgb 12.0 L Hct 35.0 L MCV 94.9 MCH 32.5 MCHC 34.3 RDW 12.2 Plt Count 146 MPV 8.6 Gran % 90.4 H Lymph % (Auto) 8.6 L [place] % (Auto) 1.0 Eos % (Auto) 0.0 L Baso % (Auto) 0.0 Gran # 6.09 Lymph # (Auto) 0.6 L [place] # (Auto) 0.1 Eos # (Auto) 0.0 Baso # (Auto) 0.00 Neutrophils % (Manual) 94 H Band Neutrophils % 1 Lymphocytes % (Manual) 5 L Monocytes % (Manual) TEST NOT PERFORMED Platelet Evaluation Normal Sodium 140 Potassium 4.0 Chloride 108 H Carbon Dioxide 24 Anion Gap 12 BUN 29 H Creatinine 1.0 Est GFR ( Amer) > 60 Est GFR (Non-Af Amer) > 60 Random Glucose 146 H Calcium 9.0 Total Bilirubin 0.4 AST 117 H D ALT 170 H Alkaline Phosphatase 53 Total Protein 6.2 Albumin 3.6 Globulin 2.6 Albumin/Globulin Ratio 1.4 Assessment & Plan - Assessment and Plan (Free Text) Assessment: 73 year old male with history of atypical meningioma s/p resection and XRT who is admixed with seizures and disease progression. Patient is not a candidate for neurosurgery or XRT. Patients at bedside. Medial staff has informed her that he husbands condition is deteriorating and that his prognosis is very poor She is aware of diagnosis but having a hard time accepting the gravity of the situation. and I talked together and then with her son Timmy via phone. I encouraged family to consider making patient DNR/DNI in accordance with his advanced directive. Timmy and patients in agreement and POLST DNR/DNI directive was completed. I also spoke individually with Timmy via phone and then later with regarding goals of care. Both are aware of the patients prognosis. Hospice offered as option for care. Hospice services explained in detail,questions answered. Family planning on meeting this evening in order to come to decision regarding future goals of care. Time pent with family in goals of care advance care planning discussion, 50 minutes Plan: Goals of care and advance care planning POLST DNR/DNI Seizures: Keep head of bead at 45 degrees, continue seizure medications>Lamactil , Keppra and decadron
--- NOTE | 2018-06-09 14:20 | CP.PCM.PN ---
Subjective - Date & Time of Evaluation Date of Evaluation: 06/09/18 Time of Evaluation: 11:00 - Subjective Subjective: Mr. Hatch was seen and examined today at bedside. Earlier this morning, he was unresponsive again, but he then became more alert. It is likely that he continues to have intermittent seizures. This is expected, considering the heavy intracranial tumor burden. There is no plan from oncology for further treatment. Neurosurgery is not an option. Objective - Vital Signs/Intake and Output Vital Signs (last 24 hours): Temp Pulse Resp BP Pulse Ox 98.2 F 63 19 112/68 94 L 06/09/18 06:00 06/09/18 10:13 06/09/18 06:00 06/09/18 10:13 06/09/18 06:00 - Medications Medications: Current Medications Atorvastatin Calcium (Lipitor) 10 mg PO DIN [facility] Last Admin: 06/08/18 17:36 Dose: 10 mg Carbidopa/Levodopa (Sinemet) 1 tab PO BID [facility] Last Admin: 06/09/18 10:12 Dose: 1 tab Carvedilol (Coreg) 25 mg PO BID [facility] Last Admin: 06/09/18 10:13 Dose: 25 mg Dexamethasone (Decadron Inj) 10 mg IVP Q8H [facility] Last Admin: 06/09/18 10:13 Dose: 10 mg Dextrose (Dextrose 50% Inj) 0 ml IV STAT PRN; Protocol PRN Reason: Hypoglycemia Protocol Docusate Sodium (Colace) 100 mg PO BID [facility] Last Admin: 06/09/18 10:13 Dose: 100 mg Famotidine (Pepcid) 40 mg PO HS [facility] Last Admin: 06/08/18 22:38 Dose: 40 mg Sodium Chloride (Sodium Chloride 0.9%) 1,000 mls @ 100 mls/hr IV .Q10H [facility] Last Admin: 06/06/18 00:17 Dose: 100 mls/hr Levetiracetam 1,000 mg/ Sodium (Chloride) 110 mls @ 460 mls/hr IV Q12 [facility] Last Admin: 06/09/18 10:14 Dose: 460 mls/hr Dextrose/Sodium Chloride (Dextrose 5%/0.45% Ns 1000 Ml) 1,000 mls @ 100 mls/hr IV .Q10H [facility] Last Admin: 06/08/18 02:30 Dose: 100 mls/hr Lamotrigine (Lamictal) 200 mg PO BID [facility] PRN Reason: Protocol Last Admin: 06/09/18 10:12 Dose: 200 mg Latanoprost (Xalatan Opht) 0 ml OU HS [facility] Last Admin: 06/08/18 22:38 Dose: 2.5 ml Levofloxacin (Levaquin) 250 mg PO DAILY [facility] Stop: 06/12/18 10:46 Lorazepam (Ativan) 2 mg IVP Q4 PRN; Protocol PRN Reason: Anxiety Last Admin: 06/09/18 01:54 Dose: 2 mg Losartan Potassium (Cozaar) 25 mg PO BID [facility] Last Admin: 06/09/18 10:13 Dose: 25 mg Mirtazapine (Remeron) 15 mg PO HS [facility] Last Admin: 06/08/18 22:38 Dose: 15 mg Tamsulosin HCl (Flomax) 0.4 mg PO HS [facility] Last Admin: 06/08/18 22:38 Dose: 0.4 mg Timolol Maleate (Timoptic 0.5% [facility]) 1 drop OD DAILY [facility] Last Admin: 06/09/18 10:13 Dose: 1 drop - Labs Labs: 06/09/18 06:45 06/09/18 06:45 PT 11.1 SECONDS (9.4-12.5) 06/04/18 18:08 INR 0.97 06/04/18 18:08 APTT 30.2 Seconds (25.1-36.5) 06/04/18 18:08 - Neurological Exam Additional comments: Neurologically unchanged from previous examination. Assessment and Plan (1) Meningioma Assessment & Plan: Multiple intracranial tumors with edema. Disease is progressive and likely no longer just meningiomas. 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 Will continue steroids. The patient is likely to be made hospice. Status: Acute (2) Seizure Assessment & Plan: Continue current AEDs. Status: Acute
--- NOTE | 2018-06-09 14:48 | CON ---
PROCEDURE DATE: 06/09/2018 ONCOLOGY CONSULTATION HISTORY OF PRESENT ILLNESS: This is a 73-year-old man with a history of meningioma that was resected and treated. However, in 11/2017, he had further CAT scans and now he has 3 new lesions, so 4 lesions in total. Besides the previous meningioma, whether this represents meningioma multifocal or whether this represents a different kind of a brain tumor. In fact, the patient was having seizures and now is not communicative. PHYSICAL EXAMINATION: SKIN: No petechiae. No bruises. HEENT: Anicteric. NODES: Nonpalpable in the axillary, cervical, or supraclavicular regions. LUNGS: Clear at present. No vertebral tenderness. HEART: S1 and S2. ABDOMEN: Shows no liver, no spleen. EXTREMITIES: No edema. FOUNTAIN HELPER: Equivocal plantars. Patient is not verbal. He has an NG tube for his antiseizure medications. I spoke to the house staff. At this point, he has a multifocal disease in his brain and I concur that at this point should be symptom control. Hospice evaluation would be appropriate. Mj Quiles MD
[2018-06-09] MEDS: Dextrose 5%/0.45% NS 1,000 ML IV SCH (17:37)
[2018-06-09] MEDS: Latanoprost 2.5 ml Opht Soln OU SCH (22:15)
[2018-06-10 06:32] LABS: GRAN # 4.84 (1.4-6.5); GRAN % 85.5 % (50.0-68.0); LYMPH # 0.7 (1.2-3.4); MEAN CELL VOLUME 92.8 fl (80.0-105.0); MEAN CORPUSCULAR HEMOGLOBIN 32.7 pg (25.0-35.0); MEAN CORPUSCULAR HGB CONC 35.3 g/dl (31.0-37.0); MEAN PLATELET VOLUME 9.7 fl (7.0-11.0); MONO # 0.1 (0.1-0.6); MONO % 2.5 % (1.0-6.0); RBC 4.28 10^6/uL (3.5-6.1); WHITE BLOOD COUNT 5.7 10^3/ul (4.5-11.0)
[2018-06-10 06:47] LABS: ALB/GLOB RATIO 1.5 (1.1-1.8); ALBUMIN 4.1 g/dL (3.0-4.8); ALT/SGPT 247 U/L (7-56); AST/SGOT 153 U/L (17-59); BLOOD UREA NITROGEN 30 mg/dL (7-21); CALCIUM 9.2 mg/dL (8.4-10.5); GFR NON-AFRICAN AMERICAN > 60
--- NOTE | 2018-06-10 09:11 | PCM.EEG ---
Electroencephalogram Report - Electroencephalogram Report Procedure Date: 06/09/18 Interpretation: Indication; seizures. Technical Information: This was a 21 - channel EEG, 1-channel EKG routine EEG performed using an Keynoir machine. Electrodes were applied using the 10/20 international placement system. Findings;. During active states, the EEG was characterized by 10-20 Hz, 15-30 uV activity bilaterally in fronto-central regions, with slightly slower frequencies and higher amplitudes emerging on the right. Resting wakefulness was characterized by a symmetric posterior dominant rhythm of 8-9 Hz, 30-50 uV, which was reactive to eye opening and closing, with greater amplitudes on the right. Drowsiness was associated with slow roving eye movements, slowing and fragmentation of the posterior dominant rhythm, and bilateral 4-7 Hz, 40-70 uV theta activity, sometimes with a shifting predominanc. Photic stimulation was performed and there were no changes in the record. Throughout the recording, there was evidence of continuous right frontal/central l 3-6 Hz, 30-75 uV slowing. Impression: INTERPRETATION: The findings are in keeping with a focal cortical abnormality involving the right frontal/central area, in keeping with a structural abnormality in the same area. NO seizures, no interictal activity seen.
[2018-06-10] MEDS: levETIRAcetam 1,000 MG in Sodium Chloride 0.9% 100 ML IV SCH ×2 (09:35→21:38)
--- NOTE | 2018-06-10 16:42 | CP.PCM.PN ---
<Chris Camacho - Last Filed: 06/10/18 16:44> Subjective - Date & Time of Evaluation Date of Evaluation: 06/10/18 Time of Evaluation: 08:00 - Subjective Subjective: Patient seen and examined at bedside in no acute distress. Patient able to speak. As per nursing staff patient is tolerating diet. 12-point ROS obtained, otherwise neg as per patient. Objective - Vital Signs/Intake and Output Vital Signs (last 24 hours): Temp Pulse Resp BP Pulse Ox 98.3 F 91 H 18 137/74 94 L 06/10/18 08:54 06/10/18 10:00 06/10/18 08:54 06/10/18 09:27 06/10/18 08:54 Intake and Output: 06/10/18 06/10/18 06:59 18:59 Intake Total 1570 Balance 1570 - Medications Medications: Current Medications Atorvastatin Calcium (Lipitor) 10 mg PO DIN [facility] Last Admin: 06/09/18 17:34 Dose: 10 mg Carbidopa/Levodopa (Sinemet) 1 tab PO BID [facility] Last Admin: 06/10/18 09:26 Dose: 1 tab Carvedilol (Coreg) 25 mg PO BID [facility] Last Admin: 06/10/18 09:27 Dose: 25 mg Dexamethasone (Decadron Inj) 10 mg IVP Q8H [facility] Last Admin: 06/10/18 09:26 Dose: 10 mg Dextrose (Dextrose 50% Inj) 0 ml IV STAT PRN; Protocol PRN Reason: Hypoglycemia Protocol Docusate Sodium (Colace) 100 mg PO BID [facility] Last Admin: 06/10/18 09:27 Dose: 100 mg Famotidine (Pepcid) 40 mg PO HS [facility] Last Admin: 06/09/18 22:12 Dose: 40 mg Sodium Chloride (Sodium Chloride 0.9%) 1,000 mls @ 100 mls/hr IV .Q10H [facility] Last Admin: 06/06/18 00:17 Dose: 100 mls/hr Levetiracetam 1,000 mg/ Sodium (Chloride) 110 mls @ 460 mls/hr IV Q12 [facility] Last Admin: 06/10/18 09:35 Dose: 460 mls/hr Dextrose/Sodium Chloride (Dextrose 5%/0.45% Ns 1000 Ml) 1,000 mls @ 100 mls/hr IV .Q10H [facility] Last Admin: 06/09/18 17:37 Dose: 100 mls/hr Lamotrigine (Lamictal) 200 mg PO BID [facility] PRN Reason: Protocol Last Admin: 06/10/18 09:26 Dose: 200 mg Latanoprost (Xalatan Opht) 0 ml OU HS [facility] Last Admin: 06/09/18 22:15 Dose: 2.5 ml Levofloxacin (Levaquin) 250 mg PO DAILY [facility] Stop: 06/12/18 10:46 Last Admin: 06/10/18 09:26 Dose: 250 mg Lorazepam (Ativan) 2 mg IVP Q4 PRN; Protocol PRN Reason: Anxiety Last Admin: 06/09/18 22:12 Dose: 2 mg Losartan Potassium (Cozaar) 25 mg PO BID [facility] Last Admin: 06/10/18 09:27 Dose: 25 mg Mirtazapine (Remeron) 15 mg PO HS [facility] Last Admin: 06/09/18 22:12 Dose: 15 mg Tamsulosin HCl (Flomax) 0.4 mg PO HS [facility] Last Admin: 06/09/18 22:12 Dose: 0.4 mg Timolol Maleate (Timoptic 0.5% Ophth Soln) 1 drop OD DAILY [facility] Last Admin: 06/10/18 09:26 Dose: 1 drop - Labs Labs: 06/10/18 05:30 06/10/18 05:30 PT 11.1 SECONDS (9.4-12.5) 06/04/18 18:08 INR 0.97 06/04/18 18:08 APTT 30.2 Seconds (25.1-36.5) 06/04/18 18:08 - Constitutional Appears: Non-toxic - Head Exam Head Exam: ATRAUMATIC, NORMAL INSPECTION, NORMOCEPHALIC - Eye Exam Eye Exam: EOMI, Normal appearance - ENT Exam ENT Exam: Mucous Membranes Moist - Respiratory Exam Respiratory Exam: Clear to Ausculation Bilateral, NORMAL BREATHING PATTERN - Cardiovascular Exam Cardiovascular Exam: REGULAR RHYTHM, +S1, +S2 - GI/Abdominal Exam GI & Abdominal Exam: Soft, Normal Bowel Sounds - Extremities Exam Extremities Exam: Normal Inspection - Back Exam Back Exam: NORMAL INSPECTION - Neurological Exam Neurological Exam: Alert, Awake, Oriented x3 - Psychiatric Exam Psychiatric exam: Normal Affect, Normal Mood - Skin Skin Exam: Normal Color, Warm Assessment and Plan - Assessment and Plan (Free Text) Assessment: 73 y/o male with PMH of HTN, HLD meningioma, Parkinson's disease, presented to the ED for witnessed seizure with post-ictal confusion and muscle weakness. Patient admitted to tele. CONSTRUCTION CONSULTANT called several times for seizure activity. He is off video EEG. No seizure reported. Patient is DNR/DNI Plan: Seizure episode. history of seizure s/p meningioma resection. has 1 seisure episode per month. compliant with Lamictal treatment IVF:D5 @100cc/hr Head CT shows new right frontal extra-axial soft tissue lesion adjacent to frontal craniotomy measuring 2.4 x 2.3 cm. This finding appears new compared to prior study. Left posterior parafalcine soft tissue lesion seen on axial image 24 measuring 4.1 x 1.2 cm in axial dimension and 1.6 cm in craniocaudal dimension As per neurology consult Dr. Jenkins: increase Lamictal to 200 mg BID, MRI brain with and without contrast. Admit for observation and EEG. MRI brain: Two separate extra-axial masses along side the falx. There is a right anterior frontal mass and a left posterior frontal mass. These lesions appear to enhance. Findings suspicious for metastatic disease. Consult neurosurgery for outpatient management continue Keppra 1000mg IV Q12H continue Ativan 2mg q4 prn continue Lamictal 200mg po bid oncology consulted: patient has multiple brain lesions. will not benefit from re -irradiation. hospice care Hopsice care consulted UTI Ucx: +enterococcus faecalis infection Continue levaquin Parkinson's disease continue home carbidopa/levodopa continue mirtazipine for depression HTN -continue home carvedilol. losartan HLD continue home atorvastatin Prophylaxis GI ppx pepcid DVT ppx SCD Patient is DNR/DNI as per patient living will NPO fall prevention aspiration precautions seizure precautions neuro checks head of bed elevation 30 degree Case reviewed and plan discussed with attending Dr Blanco <Estee Blanco - Last Filed: 06/10/18 18:28> Objective - Vital Signs/Intake and Output Vital Signs (last 24 hours): Temp Pulse Resp BP Pulse Ox 98.5 F 83 21 118/68 94 L 06/10/18 17:22 06/10/18 17:22 06/10/18 17:22 06/10/18 17:22 06/10/18 17:22 Intake and Output: 06/10/18 06/10/18 06:59 18:59 Intake Total 1570 Balance 1570 - Medications Medications: Current Medications Atorvastatin Calcium (Lipitor) 10 mg PO DIN [facility] Last Admin: 06/09/18 17:34 Dose: 10 mg Carbidopa/Levodopa (Sinemet) 1 tab PO BID [facility] Last Admin: 06/10/18 09:26 Dose: 1 tab Carvedilol (Coreg) 25 mg PO BID [facility] Last Admin: 06/10/18 09:27 Dose: 25 mg Dexamethasone (Decadron Inj) 10 mg IVP Q8H [facility] Last Admin: 06/10/18 09:26 Dose: 10 mg Dextrose (Dextrose 50% Inj) 0 ml IV STAT PRN; Protocol PRN Reason: Hypoglycemia Protocol Docusate Sodium (Colace) 100 mg PO BID [facility] Last Admin: 06/10/18 09:27 Dose: 100 mg Famotidine (Pepcid) 40 mg PO HS [facility] Last Admin: 06/09/18 22:12 Dose: 40 mg Sodium Chloride (Sodium Chloride 0.9%) 1,000 mls @ 100 mls/hr IV .Q10H [facility] Last Admin: 06/06/18 00:17 Dose: 100 mls/hr Levetiracetam 1,000 mg/ Sodium (Chloride) 110 mls @ 460 mls/hr IV Q12 [facility] Last Admin: 06/10/18 09:35 Dose: 460 mls/hr Dextrose/Sodium Chloride (Dextrose 5%/0.45% Ns 1000 Ml) 1,000 mls @ 100 mls/hr IV .Q10H [facility] Last Admin: 06/09/18 17:37 Dose: 100 mls/hr Lamotrigine (Lamictal) 200 mg PO BID [facility] PRN Reason: Protocol Last Admin: 06/10/18 09:26 Dose: 200 mg Latanoprost (Xalatan Opht) 0 ml OU HS [facility] Last Admin: 06/09/18 22:15 Dose: 2.5 ml Levofloxacin (Levaquin) 250 mg PO DAILY [facility] Stop: 06/12/18 10:46 Last Admin: 06/10/18 09:26 Dose: 250 mg Lorazepam (Ativan) 2 mg IVP Q4 PRN; Protocol PRN Reason: Anxiety Last Admin: 06/09/18 22:12 Dose: 2 mg Losartan Potassium (Cozaar) 25 mg PO BID [facility] Last Admin: 06/10/18 09:27 Dose: 25 mg Mirtazapine (Remeron) 15 mg PO HS [facility] Last Admin: 06/09/18 22:12 Dose: 15 mg Tamsulosin HCl (Flomax) 0.4 mg PO HS [facility] Last Admin: 06/09/18 22:12 Dose: 0.4 mg Timolol Maleate (Timoptic 0.5% Ophth Soln) 1 drop OD DAILY [facility] Last Admin: 06/10/18 09:26 Dose: 1 drop - Labs Labs: 06/10/18 05:30 06/10/18 05:30 PT 11.1 SECONDS (9.4-12.5) 06/04/18 18:08 INR 0.97 06/04/18 18:08 APTT 30.2 Seconds (25.1-36.5) 06/04/18 18:08 Attending/Attestation - Attestation I have personally seen and examined this patient.: Yes I have fully participated in the care of the patient.: Yes I have reviewed all pertinent clinical information, including history, physical exam and plan: Yes Notes (Text): 06/10/18 18:27 73 years old male with PMH of HTN, HLD meningioma,SP resection , Parkinson's disease, presented to the ED for witnessed seizure with post-ictal confusion and muscle weakness. Head CT showed new right frontal extra-axial soft tissue lesion adjacent to frontal craniotomy measuring 2.4 x 2.3 cm. This finding appears new compared to prior study. Left posterior parafalcine soft tissue lesion seen on axial image 24 measuring 4.1 x 1.2 cm in axial dimension and 1.6 cm in craniocaudal dimension. MRI brain: Two separate extra-axial masses along side the falx. There is a right anterior frontal mass and a left posterior frontal mass. These lesions appear to enhance. CONSTRUCTION CONSULTANT called several times for seizure activity. He is off video EEG. No seizure reported..Patient is on IV steroid,Keppra and Lamectal. Patient has refused any Surgery, Radiation oncology evaluation, not candidate for radiation, Oncology has recommended palliative care, Case was discussed with patient over the phone yesterday.Prognosis was discussed.Palliative care was consulted. Patient is now DNR/DNI. Prognosis is guarded.
[2018-06-10] MEDS: Latanoprost 2.5 ml Opht Soln OU SCH (21:39)
[2018-06-11] MEDS: levETIRAcetam 1,000 MG in Sodium Chloride 0.9% 100 ML IV SCH ×2 (10:26→21:34)
--- NOTE | 2018-06-11 15:09 | CP.PCM.PN ---
<Chris Camacho - Last Filed: 06/11/18 15:12> Subjective - Date & Time of Evaluation Date of Evaluation: 06/11/18 Time of Evaluation: 15:10 - Subjective Subjective: Patient seen and examined at bedside in no acute distress. Patient states he has full appetite and denies abdominal pain. 12-point ROS obtained, otherwise neg as per patient. - Constitutional Appears: Non-toxic - Head Exam Head Exam: ATRAUMATIC, NORMAL INSPECTION, NORMOCEPHALIC - Eye Exam Eye Exam: EOMI, Normal appearance - ENT Exam ENT Exam: Mucous Membranes Moist - Respiratory Exam Respiratory Exam: Clear to Ausculation Bilateral, NORMAL BREATHING PATTERN - Cardiovascular Exam Cardiovascular Exam: REGULAR RHYTHM, +S1, +S2 - GI/Abdominal Exam GI & Abdominal Exam: Soft, Normal Bowel Sounds - Extremities Exam Extremities Exam: Normal Inspection - Back Exam Back Exam: NORMAL INSPECTION - Neurological Exam Neurological Exam: Alert, Awake, Oriented x3 - Psychiatric Exam Psychiatric exam: Normal Affect, Normal Mood - Skin Skin Exam: Normal Color, Warm Objective - Vital Signs/Intake and Output Vital Signs (last 24 hours): Temp Pulse Resp BP Pulse Ox 98.2 F 65 18 112/67 99 06/11/18 09:33 06/11/18 10:25 06/11/18 09:33 06/11/18 10:25 06/11/18 09:33 Intake and Output: 06/11/18 06/11/18 06:59 18:59 Intake Total 1300 Balance 1300 - Medications Medications: Current Medications Carbidopa/Levodopa (Sinemet) 1 tab PO BID [facility] Last Admin: 06/11/18 10:25 Dose: 1 tab Carvedilol (Coreg) 25 mg PO BID [facility] Last Admin: 06/11/18 10:25 Dose: 25 mg Dexamethasone (Decadron Inj) 10 mg IVP Q8H [facility] Last Admin: 06/11/18 10:25 Dose: 10 mg Dextrose (Dextrose 50% Inj) 0 ml IV STAT PRN; Protocol PRN Reason: Hypoglycemia Protocol Docusate Sodium (Colace) 100 mg PO BID [facility] Last Admin: 06/11/18 10:25 Dose: 100 mg Famotidine (Pepcid) 40 mg PO HS [facility] Last Admin: 06/10/18 21:39 Dose: 40 mg Sodium Chloride (Sodium Chloride 0.9%) 1,000 mls @ 100 mls/hr IV .Q10H [facility] Last Admin: 06/06/18 00:17 Dose: 100 mls/hr Levetiracetam 1,000 mg/ Sodium (Chloride) 110 mls @ 460 mls/hr IV Q12 [facility] Last Admin: 06/11/18 10:26 Dose: 460 mls/hr Dextrose/Sodium Chloride (Dextrose 5%/0.45% Ns 1000 Ml) 1,000 mls @ 100 mls/hr IV .Q10H [facility] Last Admin: 06/09/18 17:37 Dose: 100 mls/hr Lamotrigine (Lamictal) 200 mg PO BID [facility] PRN Reason: Protocol Last Admin: 06/11/18 10:25 Dose: 200 mg Latanoprost (Xalatan Opht) 0 ml OU HS [facility] Last Admin: 06/10/18 21:39 Dose: 2.5 ml Levofloxacin (Levaquin) 250 mg PO DAILY [facility] Stop: 06/12/18 10:46 Last Admin: 06/11/18 10:25 Dose: 250 mg Lorazepam (Ativan) 2 mg IVP Q4 PRN; Protocol PRN Reason: Anxiety Last Admin: 06/11/18 02:32 Dose: 2 mg Losartan Potassium (Cozaar) 25 mg PO BID [facility] Last Admin: 06/11/18 10:25 Dose: 25 mg Mirtazapine (Remeron) 15 mg PO HS [facility] Last Admin: 06/10/18 21:39 Dose: 15 mg Tamsulosin HCl (Flomax) 0.4 mg PO HS [facility] Last Admin: 06/10/18 21:39 Dose: 0.4 mg Timolol Maleate (Timoptic 0.5% Ophth Soln) 1 drop OD DAILY [facility] Last Admin: 06/11/18 10:24 Dose: 1 drop - Labs Labs: 06/10/18 05:30 06/10/18 05:30 PT 11.1 SECONDS (9.4-12.5) 06/04/18 18:08 INR 0.97 06/04/18 18:08 APTT 30.2 Seconds (25.1-36.5) 06/04/18 18:08 Assessment and Plan - Assessment and Plan (Free Text) Assessment: 73 y/o male with PMH of HTN, HLD meningioma, Parkinson's disease, presented to the ED for witnessed seizure with post-ictal confusion and muscle weakness. Patient admitted to tele. DENTAL CERAMIST called several times for seizure activity. He is off video EEG. No seizure reported. Patient is DNR/DNI Plan: Seizure episode. history of seizure s/p meningioma resection. Tends to have 1 seizure episode per month. compliant with Lamictal treatment IVF:D5 @100cc/hr Head CT shows new right frontal extra-axial soft tissue lesion adjacent to frontal craniotomy measuring 2.4 x 2.3 cm. This finding appears new compared to prior study. Left posterior parafalcine soft tissue lesion seen on axial image 24 measuring 4.1 x 1.2 cm in axial dimension and 1.6 cm in craniocaudal dimension As per neurology consult Dr. Jenkins: increase Lamictal to 200 mg BID, MRI brain with and without contrast. Admit for observation and EEG. MRI brain: Two separate extra-axial masses along side the falx. There is a right anterior frontal mass and a left posterior frontal mass. These lesions appear to enhance. Findings suspicious for metastatic disease. continue Keppra 1000mg IV Q12H continue Ativan 2mg q4 prn continue Lamictal 200mg po bid oncology consulted: patient has multiple brain lesions. will not benefit from re -irradiation. Hopce care consulted Transaminitis -With hold hepatatoxic m edications -Continue to monitor; if continues to increase will do abominal ultrasound UTI Ucx: +enterococcus faecalis infection Continue levaquin Parkinson's disease continue home carbidopa/levodopa continue mirtazipine for depression HTN -continue home carvedilol and losartan HLD -Hold atorvastatin d/t transaminitis Prophylaxis GI ppx pepcid DVT ppx SCD Patient is DNR/DNI as per patient living will NPO fall prevention aspiration precautions seizure precautions neuro checks head of bed elevation 30 degree Case reviewed and plan discussed with attending Dr Blanco <Estee Blanco - Last Filed: 06/11/18 15:54> Objective - Vital Signs/Intake and Output Vital Signs (last 24 hours): Temp Pulse Resp BP Pulse Ox 98.2 F 65 18 112/67 99 06/11/18 09:33 06/11/18 10:25 06/11/18 09:33 06/11/18 10:25 06/11/18 09:33 Intake and Output: 06/11/18 06/11/18 06:59 18:59 Intake Total 1300 Balance 1300 - Medications Medications: Current Medications Carbidopa/Levodopa (Sinemet) 1 tab PO BID [facility] Last Admin: 06/11/18 10:25 Dose: 1 tab Carvedilol (Coreg) 25 mg PO BID [facility] Last Admin: 06/11/18 10:25 Dose: 25 mg Dexamethasone (Decadron Inj) 10 mg IVP Q8H [facility] Last Admin: 06/11/18 10:25 Dose: 10 mg Dextrose (Dextrose 50% Inj) 0 ml IV STAT PRN; Protocol PRN Reason: Hypoglycemia Protocol Docusate Sodium (Colace) 100 mg PO BID [facility] Last Admin: 06/11/18 10:25 Dose: 100 mg Famotidine (Pepcid) 40 mg PO HS [facility] Last Admin: 06/10/18 21:39 Dose: 40 mg Sodium Chloride (Sodium Chloride 0.9%) 1,000 mls @ 100 mls/hr IV .Q10H [facility] Last Admin: 06/06/18 00:17 Dose: 100 mls/hr Levetiracetam 1,000 mg/ Sodium (Chloride) 110 mls @ 460 mls/hr IV Q12 [facility] Last Admin: 06/11/18 10:26 Dose: 460 mls/hr Dextrose/Sodium Chloride (Dextrose 5%/0.45% Ns 1000 Ml) 1,000 mls @ 100 mls/hr IV .Q10H [facility] Last Admin: 06/09/18 17:37 Dose: 100 mls/hr Lamotrigine (Lamictal) 200 mg PO BID [facility] PRN Reason: Protocol Last Admin: 06/11/18 10:25 Dose: 200 mg Latanoprost (Xalatan Opht) 0 ml OU HS [facility] Last Admin: 06/10/18 21:39 Dose: 2.5 ml Levofloxacin (Levaquin) 250 mg PO DAILY [facility] Stop: 06/12/18 10:46 Last Admin: 06/11/18 10:25 Dose: 250 mg Lorazepam (Ativan) 2 mg IVP Q4 PRN; Protocol PRN Reason: Anxiety Last Admin: 06/11/18 02:32 Dose: 2 mg Losartan Potassium (Cozaar) 25 mg PO BID [facility] Last Admin: 06/11/18 10:25 Dose: 25 mg Mirtazapine (Remeron) 15 mg PO HS [facility] Last Admin: 06/10/18 21:39 Dose: 15 mg Tamsulosin HCl (Flomax) 0.4 mg PO HS [facility] Last Admin: 06/10/18 21:39 Dose: 0.4 mg Timolol Maleate (Timoptic 0.5% Ophth Soln) 1 drop OD DAILY [facility] Last Admin: 06/11/18 10:24 Dose: 1 drop - Labs Labs: 06/10/18 05:30 06/10/18 05:30 PT 11.1 SECONDS (9.4-12.5) 06/04/18 18:08 INR 0.97 06/04/18 18:08 APTT 30.2 Seconds (25.1-36.5) 06/04/18 18:08 Attending/Attestation - Attestation I have personally seen and examined this patient.: Yes I have fully participated in the care of the patient.: Yes I have reviewed all pertinent clinical information, including history, physical exam and plan: Yes Notes (Text): 06/11/18 15:50 73 years old male with PMH of HTN, HLD meningioma,SP resection , Parkinson's disease, presented to the ED for witnessed seizure with post-ictal confusion and muscle weakness. Head CT showed new right frontal extra-axial soft tissue lesion adjacent to frontal craniotomy measuring 2.4 x 2.3 cm. This finding appears new compared to prior study. Left posterior parafalcine soft tissue lesion seen on axial image 24 measuring 4.1 x 1.2 cm in axial dimension and 1.6 cm in craniocaudal dimension. MRI brain: Two separate extra-axial masses along side the falx. There is a right anterior frontal mass and a left posterior frontal mass. These lesions appear to enhance. DENTAL CERAMIST called several times for seizure activity. He is off video EEG. No seizure reported..Patient is on IV steroid,Keppra and Lamectal. Patient has refused any Surgery, Radiation oncology evaluation, not candidate for radiation, Oncology has recommended palliative care, Patient has elevated transaminase , AST 153 ,ALT 247, were normal 2 days back, etiology is unclear , we will stop lipitor.Wew ill monitor.If LFT will not improve, will get Right upper quadrant USG ..Avoid hepatotoxic medication.Patient does not has right upper quadrant tenderness. Family has not yet decided about hospice and comfort measure at this time. Patient is DNR/DNI. Prognosis is guarded.
[2018-06-11] MEDS: Dextrose 5%/0.45% NS 1,000 ML IV SCH (18:04)
[2018-06-11] MEDS: Latanoprost 2.5 ml Opht Soln OU SCH (21:34)
[2018-06-12] MEDS: levETIRAcetam 1,000 MG in Sodium Chloride 0.9% 100 ML IV SCH ×2 (10:05→21:51)
[2018-06-12] MEDS: POLYETHYLENE GLYCOL 3350 17 GM/Dose PACKET PO SCH ×2 (11:40→17:20)
--- NOTE | 2018-06-12 13:44 | CP.PCM.PN ---
Subjective - Date & Time of Evaluation Date of Evaluation: 06/12/18 Time of Evaluation: 12:00 - Subjective Subjective: Alert, follows simple command, able to eat with assistance. Denies pain Objective - Vital Signs/Intake and Output Vital Signs (last 24 hours): Temp Pulse Resp BP Pulse Ox 97.8 F 56 L 20 121/72 95 06/12/18 08:14 06/12/18 10:06 06/12/18 08:14 06/12/18 10:06 06/12/18 08:14 Intake and Output: 06/12/18 06/12/18 06:59 18:59 Intake Total 1300 Balance 1300 - Medications Medications: Current Medications Carbidopa/Levodopa (Sinemet) 1 tab PO BID [facility] Last Admin: 06/12/18 10:04 Dose: 1 tab Carvedilol (Coreg) 25 mg PO BID [facility] Last Admin: 06/12/18 10:06 Dose: Not Given Dexamethasone (Decadron Inj) 10 mg IVP Q8H [facility] Last Admin: 06/12/18 10:04 Dose: 10 mg Dextrose (Dextrose 50% Inj) 0 ml IV STAT PRN; Protocol PRN Reason: Hypoglycemia Protocol Famotidine (Pepcid) 40 mg PO HS [facility] Last Admin: 06/11/18 21:34 Dose: 40 mg Sodium Chloride (Sodium Chloride 0.9%) 1,000 mls @ 100 mls/hr IV .Q10H [facility] Last Admin: 06/06/18 00:17 Dose: 100 mls/hr Levetiracetam 1,000 mg/ Sodium (Chloride) 110 mls @ 460 mls/hr IV Q12 [facility] Last Admin: 06/12/18 10:05 Dose: 460 mls/hr Dextrose/Sodium Chloride (Dextrose 5%/0.45% Ns 1000 Ml) 1,000 mls @ 100 mls/hr IV .Q10H [facility] Last Admin: 06/11/18 18:04 Dose: 100 mls/hr Ketorolac Tromethamine (Toradol) 15 mg IVP Q6H PRN PRN Reason: Pain, Mild (1-3) Last Admin: 06/12/18 11:41 Dose: 15 mg Lamotrigine (Lamictal) 200 mg PO BID [facility] PRN Reason: Protocol Last Admin: 06/12/18 10:04 Dose: 200 mg Latanoprost (Xalatan Opht) 0 ml OU HS [facility] Last Admin: 06/11/18 21:34 Dose: 2.5 ml Lorazepam (Ativan) 2 mg IVP Q4 PRN; Protocol PRN Reason: Anxiety Last Admin: 06/12/18 03:03 Dose: 2 mg Losartan Potassium (Cozaar) 25 mg PO BID [facility] Last Admin: 06/12/18 10:04 Dose: 25 mg Mirtazapine (Remeron) 15 mg PO HS [facility] Last Admin: 06/11/18 21:34 Dose: 15 mg Polyethylene Glycol (Miralax) 17 gm PO BID [facility] Last Admin: 06/12/18 11:40 Dose: 17 gm Tamsulosin HCl (Flomax) 0.4 mg PO HS [facility] Last Admin: 06/11/18 21:34 Dose: 0.4 mg Timolol Maleate (Timoptic 0.5% Oph Soln) 1 drop OD DAILY [facility] Last Admin: 06/12/18 10:05 Dose: 1 drop - Labs Labs: 06/10/18 05:30 06/10/18 05:30 PT 11.1 SECONDS (9.4-12.5) 06/04/18 18:08 INR 0.97 06/04/18 18:08 APTT 30.2 Seconds (25.1-36.5) 06/04/18 18:08 - Constitutional Appears: No Acute Distress, Chronically Ill - Eye Exam Eye Exam: Normal appearance, PERRL - ENT Exam ENT Exam: Mucous Membranes Moist - Respiratory Exam Respiratory Exam: Clear to Ausculation Bilateral, NORMAL BREATHING PATTERN - Cardiovascular Exam Cardiovascular Exam: REGULAR RHYTHM, +S2 - GI/Abdominal Exam GI & Abdominal Exam: Soft, Normal Bowel Sounds - Neurological Exam Neurological Exam: Alert Additional comments: karrie paresis - Skin Skin Exam: Dry, Warm Assessment and Plan - Assessment and Plan (Free Text) Assessment: 73 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 New findings CT of head / MRI of brain showing two masses > right anterior / posterior frontal masses. These masses appear to be consistent with a metastatic process. Patient is not a candidate for neurosurgery or XRT. Family at bedside. Last week we had discussed option for hospice care. Family wanted to wait a few days to see if patients condition improved. Today, the patient is more alert and able to follow simple command. Family aware that this is likely temporary situation and underhand that over all prognosis is poor. Family has decided to transfer to halfway facility, will transition to hospice when patients condition declines. Time spent with family in goals of care discussion, 20 minutes Plan: POLST DNR/DNI Seizure: Contue Keppra and Lamictal, maintain seizure precautions, UTI: Continue Levaquin HTN: Continue Carvedilol Transfer to halfway facility when bed available
--- NOTE | 2018-06-12 14:06 | CP.PCM.PN ---
<Jong Goddardhemanth - Last Filed: 06/12/18 18:54> Subjective - Date & Time of Evaluation Date of Evaluation: 06/12/18 Time of Evaluation: 11:10 - Subjective Subjective: PGY-1 [facility] Godd[facility] Medicine Progress Note for Dr. Adair's service Patient seen and examined at bedside. Patient's family was at bedside. Patient complained of abdominal pain and headache as per family however did not denied during examination. 12 point of ROS difficult to obtain secondary to patient mental status. Objective - Vital Signs/Intake and Output Vital Signs (last 24 hours): Temp Pulse Resp BP Pulse Ox 97.8 F 56 L 20 121/72 95 06/12/18 08:14 06/12/18 10:06 06/12/18 08:14 06/12/18 10:06 06/12/18 08:14 Intake and Output: 06/12/18 06/12/18 06:59 18:59 Intake Total 1300 Balance 1300 - Medications Medications: Current Medications Carbidopa/Levodopa (Sinemet) 1 tab PO BID [facility] Last Admin: 06/12/18 10:04 Dose: 1 tab Carvedilol (Coreg) 25 mg PO BID [facility] Last Admin: 06/12/18 10:06 Dose: Not Given Dexamethasone (Decadron Inj) 10 mg IVP Q8H [facility] Last Admin: 06/12/18 10:04 Dose: 10 mg Dextrose (Dextrose 50% Inj) 0 ml IV STAT PRN; Protocol PRN Reason: Hypoglycemia Protocol Famotidine (Pepcid) 40 mg PO HS [facility] Last Admin: 06/11/18 21:34 Dose: 40 mg Sodium Chloride (Sodium Chloride 0.9%) 1,000 mls @ 100 mls/hr IV .Q10H [facility] Last Admin: 06/06/18 00:17 Dose: 100 mls/hr Levetiracetam 1,000 mg/ Sodium (Chloride) 110 mls @ 460 mls/hr IV Q12 [facility] Last Admin: 06/12/18 10:05 Dose: 460 mls/hr Dextrose/Sodium Chloride (Dextrose 5%/0.45% Ns 1000 Ml) 1,000 mls @ 100 mls/hr IV .Q10H [facility] Last Admin: 06/11/18 18:04 Dose: 100 mls/hr Ketorolac Tromethamine (Toradol) 15 mg IVP Q6H PRN PRN Reason: Pain, Mild (1-3) Last Admin: 06/12/18 11:41 Dose: 15 mg Lamotrigine (Lamictal) 200 mg PO BID [facility] PRN Reason: Protocol Last Admin: 06/12/18 10:04 Dose: 200 mg Latanoprost (Xalatan Opht) 0 ml OU HS [facility] Last Admin: 06/11/18 21:34 Dose: 2.5 ml Lorazepam (Ativan) 2 mg IVP Q4 PRN; Protocol PRN Reason: Anxiety Last Admin: 06/12/18 03:03 Dose: 2 mg Losartan Potassium (Cozaar) 25 mg PO BID [facility] Last Admin: 06/12/18 10:04 Dose: 25 mg Mirtazapine (Remeron) 15 mg PO HS [facility] Last Admin: 06/11/18 21:34 Dose: 15 mg Polyethylene Glycol (Miralax) 17 gm PO BID [facility] Last Admin: 06/12/18 11:40 Dose: 17 gm Tamsulosin HCl (Flomax) 0.4 mg PO HS [facility] Last Admin: 06/11/18 21:34 Dose: 0.4 mg Timolol Maleate (Timoptic 0.5% Oph Soln) 1 drop OD DAILY [facility] Last Admin: 06/12/18 10:05 Dose: 1 drop - Labs Labs: 06/10/18 05:30 06/10/18 05:30 PT 11.1 SECONDS (9.4-12.5) 06/04/18 18:08 INR 0.97 06/04/18 18:08 APTT 30.2 Seconds (25.1-36.5) 06/04/18 18:08 - Additional Findings Additional findings: Constitutional Appears: Non-toxic - Head Exam Head Exam: ATRAUMATIC, NORMAL INSPECTION, NORMOCEPHALIC - Eye Exam Eye Exam: EOMI, Normal appearance - ENT Exam ENT Exam: Mucous Membranes Moist - Respiratory Exam Respiratory Exam: Clear to Ausculation Bilateral, NORMAL BREATHING PATTERN - Cardiovascular Exam Cardiovascular Exam: REGULAR RHYTHM, +S1, +S2 - GI/Abdominal Exam GI & Abdominal Exam: Soft, Normal Bowel Sounds - Extremities Exam Extremities Exam: Normal Inspection - Back Exam Back Exam: NORMAL INSPECTION - Neurological Exam Neurological Exam: Alert, Awake, Oriented x3 - Psychiatric Exam Psychiatric exam: Normal Affect, Normal Mood - Skin Skin Exam: Normal Color, Warm Assessment and Plan - Assessment and Plan (Free Text) Assessment: Patient is a 73 yo male PMH of HTN, HLD meningioma, Parkinson's disease, presented to the ED for witnessed seizure. Patient found to have brain masses on MRI with likely mets. 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 Patient currently DNR/DNI. As per family and palliative care conversation, patient will be transferred to nursing home facility instead of hospice. Plan: Seizures History of seizure s/p meningioma resection. Tends to have 1 seizure episode per month. compliant with Lamictal treatment 06/04/[address] shows new right frontal extra-axial soft tissue lesion adjacent to frontal craniotomy measuring 2.4 x 2.3 cm. This finding appears new compared to prior study. Left posterior parafalcine soft tissue lesion seen on axial image 24 measuring 4.1 x 1.2 cm in axial dimension and 1.6 cm in craniocaudal dimension Neuro consult : Dr. Jenkins- increase Lamictal to 200 mg BID 05/25/18 MRI brain: Two separate extra-axial masses along side the falx. There is a right anterior frontal mass and a left posterior frontal mass. These lesions appear to enhance. Findings suspicious for metastatic disease. IVF:D5 @100cc/hr Keppra 1000mg IV Q12H Ativan 2mg q4 prn Lamictal 200mg po bid oncology consulted: patient has multiple brain lesions. Oncology recommends hospice Per conversation with family with palliative; Patient to be transferred to nursing home facility Transaminitis Hepatotoxic medications contraindicated in this setting Patient switched to DNR/DNI no labs drawn for past two days UTI Ucx: +enterococcus faecalis infection Levaquin dc'ed Parkinson's disease Carbidopa/Levodopa 1 tab po bid Mirtazapine 15mg po HS [facility] Coreg 25mg po bid Cozaar 25mg po bid [facility] Atorvastatin held in the setting of elevated LFTs Prophylaxis GI ppx pepcid 40 mg po hs DVT ppx SCD Case and management discussed wt Dr. Adair <Greer Adair - Last Filed: 06/13/18 12:19> Objective - Vital Signs/Intake and Output Vital Signs (last 24 hours): Temp Pulse Resp BP Pulse Ox 98.5 F 75 19 166/74 H 96 06/13/18 09:22 09/25/18 10:05 06/13/18 09:22 06/13/18 10:05 06/13/18 09:22 Intake and Output: 06/13/18 06/13/18 06:59 18:59 Intake Total 1250 Balance 1250 - Medications Medications: Current Medications Carbidopa/Levodopa (Sinemet) 1 tab PO BID [facility] Last Admin: 06/13/18 10:05 Dose: 1 tab Carvedilol (Coreg) 25 mg PO BID [facility] Last Admin: 06/13/18 10:04 Dose: 25 mg Dexamethasone (Decadron Inj) 10 mg IVP Q8H [facility] Last Admin: 06/13/18 10:04 Dose: 10 mg Dextrose (Dextrose 50% Inj) 0 ml IV STAT PRN; Protocol PRN Reason: Hypoglycemia Protocol Famotidine (Pepcid) 40 mg PO HS [facility] Last Admin: 06/12/18 21:51 Dose: 40 mg Sodium Chloride (Sodium Chloride 0.9%) 1,000 mls @ 100 mls/hr IV .Q10H [facility] Last Admin: 06/06/18 00:17 Dose: 100 mls/hr Levetiracetam 1,000 mg/ Sodium (Chloride) 110 mls @ 460 mls/hr IV Q12 [facility] Last Admin: 06/13/18 10:06 Dose: 460 mls/hr Dextrose/Sodium Chloride (Dextrose 5%/0.45% Ns 1000 Ml) 1,000 mls @ 100 mls/hr IV .Q10H [facility] Last Admin: 06/13/18 06:00 Dose: 100 mls/hr Ketorolac Tromethamine (Toradol) 15 mg IVP Q6H PRN PRN Reason: Pain, Mild (1-3) Last Admin: 06/12/18 11:41 Dose: 15 mg Lamotrigine (Lamictal) 200 mg PO BID [facility]; Protocol Last Admin: 06/12/18 17:20 Dose: 200 mg Latanoprost (Xalatan Opht) 0 ml OU HS [facility] Last Admin: 06/12/18 21:52 Dose: 2.5 ml Lorazepam (Ativan) 2 mg IVP Q4 PRN; Protocol PRN Reason: Anxiety Last Admin: 06/12/18 23:37 Dose: 2 mg Losartan Potassium (Cozaar) 25 mg PO BID [facility] Last Admin: 06/13/18 10:05 Dose: 25 mg Mirtazapine (Remeron) 15 mg PO HS [facility] Last Admin: 06/12/18 22:01 Dose: 15 mg Polyethylene Glycol (Miralax) 17 gm PO BID [facility] Last Admin: 06/13/18 10:03 Dose: 17 gm Tamsulosin HCl (Flomax) 0.4 mg PO HS [facility] Last Admin: 06/12/18 21:51 Dose: 0.4 mg Timolol Maleate (Timoptic 0.5% Ophth Soln) 1 drop OD DAILY [facility] Last Admin: 06/13/18 10:06 Dose: 1 drop - Labs Labs: 06/10/18 05:30 06/13/18 06:30 PT 11.1 SECONDS (9.4-12.5) 06/04/18 18:08 INR 0.97 06/04/18 18:08 APTT 30.2 Seconds (25.1-36.5) 06/04/18 18:08 Attending/Attestation - Attestation I have personally seen and examined this patient.: Yes I have fully participated in the care of the patient.: Yes I have reviewed all pertinent clinical information, including history, physical exam and plan: Yes Notes (Text): 06/12/18 73 year old male with past medical history of hypertension, meningioma s/p resection and Parkinson's disease who presented with seizure, altered mental status and weakness. CT head showed new right frontal extra-axial soft tissue lesion. MRI brain shows two separate extra-axial masses along side the falx. Neurology is following. Patient is on keppra, lamictal and iv steroids. He is off video EEG. Patient/family refused and surgery or radiation oncology evaluation. Palliative care is following. Family has not yet decided on hospice. Patient is DNR/DNI. LFTs were elevated; will repeat tomorrow. Lipitor is held. Plan of care was discussed with family at bedside today. Greer Adair MD Hospitalist.
[2018-06-12] MEDS: Dextrose 5%/0.45% NS 1,000 ML IV SCH (17:16)
[2018-06-12] MEDS: Latanoprost 2.5 ml Opht Soln OU SCH (21:52)
[2018-06-13] MEDS: Dextrose 5%/0.45% NS 1,000 ML IV SCH ×2 (06:00→18:07)
[2018-06-13 07:33] LABS: ALB/GLOB RATIO 1.4 (1.1-1.8); ALBUMIN 3.3 g/dL (3.0-4.8); AST/SGOT 496 U/L (17-59); BLOOD UREA NITROGEN 29 mg/dL (7-21); CALCIUM 8.5 mg/dL (8.4-10.5); GFR NON-AFRICAN AMERICAN > 60
[2018-06-13 07:39] LABS: ALT/SGPT 1362 U/L (7-56)
[2018-06-13] MEDS: POLYETHYLENE GLYCOL 3350 17 GM/Dose PACKET PO SCH ×2 (10:03→18:01)
[2018-06-13] MEDS: levETIRAcetam 1,000 MG in Sodium Chloride 0.9% 100 ML IV SCH ×2 (10:06→21:16)
--- NOTE | 2018-06-13 14:59 | CP.PCM.PN ---
<Brent Goddard - Last Filed: 06/13/18 16:11> Subjective - Date & Time of Evaluation Date of Evaluation: 06/13/18 Time of Evaluation: 11:00 - Subjective Subjective: PGY-1 [facility] Medicine Progress Note for Dr. Adair's service Patient seen and examined at bedside. Patient offers no acute complaints. Patient 12 point ROS limited secondary to clinical condition. Objective - Vital Signs/Intake and Output Vital Signs (last 24 hours): Temp Pulse Resp BP Pulse Ox 98.5 F 75 19 166/74 H 96 06/13/18 09:22 06/13/18 10:05 06/13/18 09:22 06/13/18 10:05 06/13/18 09:22 Intake and Output: 06/13/18 06/13/18 06:59 18:59 Intake Total 1250 Balance 1250 - Medications Medications: Current Medications Carbidopa/Levodopa (Sinemet) 1 tab PO BID [facility] Last Admin: 06/13/18 10:05 Dose: 1 tab Carvedilol (Coreg) 25 mg PO BID [facility] Last Admin: 06/13/18 10:04 Dose: 25 mg Dexamethasone (Decadron Inj) 10 mg IVP Q8H [facility] Last Admin: 06/13/18 10:04 Dose: 10 mg Dextrose (Dextrose 50% Inj) 0 ml IV STAT PRN; Protocol PRN Reason: Hypoglycemia Protocol Famotidine (Pepcid) 40 mg PO HS [facility] Last Admin: 06/12/18 21:51 Dose: 40 mg Sodium Chloride (Sodium Chloride 0.9%) 1,000 mls @ 100 mls/hr IV .Q10H [facility] Last Admin: 06/06/18 00:17 Dose: 100 mls/hr Levetiracetam 1,000 mg/ Sodium (Chloride) 110 mls @ 460 mls/hr IV Q12 [facility] Last Admin: 06/13/18 10:06 Dose: 460 mls/hr Dextrose/Sodium Chloride (Dextrose 5%/0.45% Ns 1000 Ml) 1,000 mls @ 100 mls/hr IV .Q10H [facility] Last Admin: 06/13/18 06:00 Dose: 100 mls/hr Ketorolac Tromethamine (Toradol) 15 mg IVP Q6H PRN PRN Reason: Pain, Mild (1-3) Last Admin: 06/12/18 11:41 Dose: 15 mg Lamotrigine (Lamictal) 200 mg PO BID [facility]; Protocol Last Admin: 06/12/18 17:20 Dose: 200 mg Latanoprost (Xalatan Opht) 0 ml OU HS [facility] Last Admin: 06/12/18 21:52 Dose: 2.5 ml Losartan Potassium (Cozaar) 25 mg PO BID [facility] Last Admin: 06/13/18 10:05 Dose: 25 mg Mirtazapine (Remeron) 15 mg PO HS [facility] Last Admin: 06/12/18 22:01 Dose: 15 mg Polyethylene Glycol (Miralax) 17 gm PO BID [facility] Last Admin: 06/13/18 10:03 Dose: 17 gm Tamsulosin HCl (Flomax) 0.4 mg PO [facility] Last Admin: 06/12/18 21:51 Dose: 0.4 mg Timolol Maleate (Timoptic 0.5% Oph Soln) 1 drop OD DAILY [facility] Last Admin: 06/13/18 10:06 Dose: 1 drop - Labs Labs: 06/10/18 05:30 06/13/18 06:30 PT 11.1 SECONDS (9.4-12.5) 06/04/18 18:08 INR 0.97 06/04/18 18:08 APTT 30.2 Seconds (25.1-36.5) 06/04/18 18:08 - Additional Findings Additional findings: Constitutional Appears: Non-toxic - Head Exam Head Exam: ATRAUMATIC, NORMAL INSPECTION, NORMOCEPHALIC - Eye Exam Eye Exam: EOMI, Normal appearance - ENT Exam ENT Exam: Mucous Membranes Moist - Respiratory Exam Respiratory Exam: Clear to Ausculation Bilateral, NORMAL BREATHING PATTERN - Cardiovascular Exam Cardiovascular Exam: REGULAR RHYTHM, +S1, +S2 - GI/Abdominal Exam GI & Abdominal Exam: Soft, Normal Bowel Sounds - Extremities Exam Extremities Exam: Normal Inspection - Back Exam Back Exam: NORMAL INSPECTION - Neurological Exam Neurological Exam: Alert, Awake, Oriented x3 - Psychiatric Exam Psychiatric exam: Normal Affect, Normal Mood - Skin Skin Exam: Normal Color, Warm Assessment and Plan - Assessment and Plan (Free Text) Assessment: Patient is a 73 yo male PMH of HTN, HLD meningioma, Parkinson's disease, presented to the ED for witnessed seizure. Patient found to have brain masses on MRI with likely mets. 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 Patient currently DNR/DNI. As per family and palliative care conversation, patient will be transferred to custodial facility instead of hospice. Plan: Seizures History of seizure s/p meningioma resection. Tends to have 1 seizure episode per month. compliant with Lamictal treatment 06/04/[address] shows new right frontal extra-axial soft tissue lesion adjacent to frontal craniotomy measuring 2.4 x 2.3 cm. This finding appears new compared to prior study. Left posterior parafalcine soft tissue lesion seen on axial image 24 measuring 4.1 x 1.2 cm in axial dimension and 1.6 cm in craniocaudal dimension Neuro consult : Dr. Jenkins- increase Lamictal to 200 mg BID 05/25/18 MRI brain: Two separate extra-axial masses along side the falx. There is a right anterior frontal mass and a left posterior frontal mass. These lesions appear to enhance. Findings suspicious for metastatic disease. IVF:D5 @100cc/hr Keppra 1000mg IV Q12H Ativan 2mg q4 prn Lamictal 200mg po bid - held in the setting of elevated LFTs- Repeat CMP in AM oncology consulted: patient has multiple brain lesions. Oncology recommends hospice Per conversation with family with palliative; Patient to be transferred to custodial facility Will speak with neurology team for outpatient management of seizures and if need to continue IV decadron Transaminitis Hepatotoxic medications contraindicated in this setting Patient switched to DNR/DNI no labs drawn for past two days UTI Ucx: +enterococcus faecalis infection Levaquin dc'ed Parkinson's disease Carbidopa/Levodopa 1 tab po bid Mirtazapine 15mg po HS HTN Coreg 25mg po bid Cozaar 25mg po bid [facility] Atorvastatin held in the setting of elevated LFTs Prophylaxis GI ppx pepcid 40 mg po hs DVT ppx SCD Case and management discussed wt Dr. Adair <Greer Adair - Last Filed: 06/13/18 18:21> Objective - Vital Signs/Intake and Output Vital Signs (last 24 hours): Temp Pulse Resp BP Pulse Ox 99.3 F 83 19 155/84 H 97 06/13/18 17:04 06/13/18 17:04 06/13/18 17:04 06/13/18 17:04 06/13/18 17:04 Intake and Output: 06/13/18 06/13/18 06:59 18:59 Intake Total 1250 Balance 1250 - Medications Medications: Current Medications Carbidopa/Levodopa (Sinemet) 1 tab PO BID [facility] Last Admin: 06/13/18 10:05 Dose: 1 tab Carvedilol (Coreg) 25 mg PO BID [facility] Last Admin: 06/13/18 10:04 Dose: 25 mg Dexamethasone (Decadron Inj) 10 mg IVP Q8H [facility] Last Admin: 06/13/18 10:04 Dose: 10 mg Dextrose (Dextrose 50% Inj) 0 ml IV STAT PRN; Protocol PRN Reason: Hypoglycemia Protocol Famotidine (Pepcid) 40 mg PO HS [facility] Last Admin: 06/12/18 21:51 Dose: 40 mg Sodium Chloride (Sodium Chloride 0.9%) 1,000 mls @ 100 mls/hr IV .Q10H [facility] Last Admin: 06/06/18 00:17 Dose: 100 mls/hr Levetiracetam 1,000 mg/ Sodium (Chloride) 110 mls @ 460 mls/hr IV Q12 [facility] Last Admin: 06/13/18 10:06 Dose: 460 mls/hr Dextrose/Sodium Chloride (Dextrose 5%/0.45% Ns 1000 Ml) 1,000 mls @ 100 mls/hr IV .Q10H [facility] Last Admin: 06/13/18 06:00 Dose: 100 mls/hr Ketorolac Tromethamine (Toradol) 15 mg IVP Q6H PRN PRN Reason: Pain, Mild (1-3) Last Admin: 06/12/18 11:41 Dose: 15 mg Lamotrigine (Lamictal) 200 mg PO BID [facility]; Protocol Last Admin: 06/12/18 17:20 Dose: 200 mg Latanoprost (Xalatan Opht) 0 ml OU HS [facility] Last Admin: 06/12/18 21:52 Dose: 2.5 ml Losartan Potassium (Cozaar) 25 mg PO BID [facility] Last Admin: 06/13/18 10:05 Dose: 25 mg Mirtazapine (Remeron) 15 mg PO HS [facility] Last Admin: 06/12/18 22:01 Dose: 15 mg Polyethylene Glycol (Miralax) 17 gm PO BID [facility] Last Admin: 06/13/18 10:03 Dose: 17 gm Tamsulosin HCl (Flomax) 0.4 mg PO HS [facility] Last Admin: 06/12/18 21:51 Dose: 0.4 mg Timolol Maleate (Timoptic 0.5% Ophth Soln) 1 drop OD DAILY [facility] Last Admin: 06/13/18 10:06 Dose: 1 drop - Labs Labs: 06/10/18 05:30 06/13/18 06:30 PT 11.1 SECONDS (9.4-12.5) 06/04/18 18:08 INR 0.97 06/04/18 18:08 APTT 30.2 Seconds (25.1-36.5) 06/04/18 18:08 Attending/Attestation - Attestation I have personally seen and examined this patient.: Yes I have fully participated in the care of the patient.: Yes I have reviewed all pertinent clinical information, including history, physical exam and plan: Yes Notes (Text): 06/13/18 18:19 73 year old male with past medical history of hypertension, meningioma s/p resection and Parkinson's disease who presented with seizure, altered mental status and weakness. CT head showed new right frontal extra-axial soft tissue lesion. MRI brain shows two separate extra-axial masses along side the falx. Neurology is following. Patient is on keppra, lamictal and iv steroids. He is off video EEG. Patient/family refused and surgery or radiation oncology evaluation. Palliative care is following. Family has requested SNR rather than hospice. Patient is DNR/DNI. Today LFTs are noted to be elevated. ?Medication induced. Patient denies abdominal pain and exam is negative. Lipitor was held earlier. Will also hold lamictal for now and discuss with neurology. Repeat labs in AM. Greer Adair MD Hospitalist.
[2018-06-13] MEDS: Latanoprost 2.5 ml Opht Soln OU SCH (21:39)
[2018-06-14] MEDS: Dextrose 5%/0.45% NS 1,000 ML IV SCH (04:11)
[2018-06-14 07:23] LABS: ALB/GLOB RATIO 1.4 (1.1-1.8); ALBUMIN 3.3 g/dL (3.0-4.8); AST/SGOT 276 U/L (17-59); BLOOD UREA NITROGEN 27 mg/dL (7-21); CALCIUM 8.5 mg/dL (8.4-10.5); GFR NON-AFRICAN AMERICAN > 60
[2018-06-14 07:32] LABS: ALT/SGPT 1375 U/L (7-56)
[2018-06-14] MEDS: levETIRAcetam 1,000 MG in Sodium Chloride 0.9% 100 ML IV SCH ×2 (09:53→22:06)
[2018-06-14] MEDS: POLYETHYLENE GLYCOL 3350 17 GM/Dose PACKET PO SCH ×2 (09:55→19:43)
--- NOTE | 2018-06-14 11:52 | CP.PCM.PN ---
<Jong Goddardhemanth - Last Filed: 06/14/18 16:35> Subjective - Date & Time of Evaluation Date of Evaluation: 06/14/18 Time of Evaluation: 10:20 - Subjective Subjective: PGY-1 [facility] Progress Note for Dr. Adair's service Patient seen and examined at bedside. Patient offers no acute complaints. Patient 12 point ROS limited secondary to clinical condition. Objective - Vital Signs/Intake and Output Vital Signs (last 24 hours): Temp Pulse Resp BP Pulse Ox 97.4 F L 61 18 121/67 97 06/14/18 08:47 06/14/18 10:02 06/14/18 08:47 06/14/18 10:02 06/14/18 08:47 Intake and Output: 06/14/18 06/14/18 06:59 18:59 Intake Total 3580 Balance 3580 - Medications Medications: Current Medications Carbidopa/Levodopa (Sinemet) 1 tab PO BID [facility] Last Admin: 06/14/18 10:02 Dose: 1 tab Carvedilol (Coreg) 25 mg PO BID [facility] Last Admin: 06/14/18 10:02 Dose: 25 mg Dexamethasone (Decadron Inj) 10 mg IVP Q8H [facility] Last Admin: 06/14/18 10:17 Dose: 10 mg Dextrose (Dextrose 50% Inj) 0 ml IV STAT PRN; Protocol PRN Reason: Hypoglycemia Protocol Famotidine (Pepcid) 40 mg PO HS [facility] Last Admin: 06/13/18 21:13 Dose: 40 mg Sodium Chloride (Sodium Chloride 0.9%) 1,000 mls @ 100 mls/hr IV .Q10H [facility] Last Admin: 06/06/18 00:17 Dose: 100 mls/hr Levetiracetam 1,000 mg/ Sodium (Chloride) 110 mls @ 460 mls/hr IV Q12 [facility] Last Admin: 06/14/18 09:53 Dose: 460 mls/hr Dextrose/Sodium Chloride (Dextrose 5%/0.45% Ns 1000 Ml) 1,000 mls @ 100 mls/hr IV .Q10H [facility] Last Admin: 06/14/18 04:11 Dose: 100 mls/hr Ketorolac Tromethamine (Toradol) 15 mg IVP Q6H PRN PRN Reason: Pain, Mild (1-3) Last Admin: 06/12/18 11:41 Dose: 15 mg Lamotrigine (Lamictal) 200 mg PO BID [facility]; Protocol Last Admin: 06/12/18 17:20 Dose: 200 mg Latanoprost (Xalatan Opht) 0 ml OU HS [facility] Last Admin: 06/13/18 21:39 Dose: 2.5 ml Losartan Potassium (Cozaar) 25 mg PO BID [facility] Last Admin: 06/14/18 10:02 Dose: 25 mg Mirtazapine (Remeron) 15 mg PO HS [facility] Last Admin: 06/13/18 21:13 Dose: 15 mg Polyethylene Glycol (Miralax) 17 gm PO BID [facility] Last Admin: 06/14/18 09:55 Dose: 17 gm Tamsulosin HCl (Flomax) 0.4 mg PO [facility] Last Admin: 06/13/18 21:13 Dose: 0.4 mg Timolol Maleate (Timoptic 0.5% Oph Soln) 1 drop OD DAILY [facility] Last Admin: 06/14/18 10:16 Dose: 1 drop - Labs Labs: 06/10/18 05:30 06/14/18 06:40 PT 11.1 SECONDS (9.4-12.5) 06/04/18 18:08 INR 0.97 06/04/18 18:08 APTT 30.2 Seconds (25.1-36.5) 06/04/18 18:08 - Constitutional Appears: Non-toxic, No Acute Distress - Head Exam Head Exam: NORMAL INSPECTION, NORMOCEPHALIC - Eye Exam Eye Exam: EOMI, Normal appearance. absent: Nystagmus, Scleral icterus - Respiratory Exam Respiratory Exam: Clear to Ausculation Bilateral, NORMAL BREATHING PATTERN - Cardiovascular Exam Cardiovascular Exam: REGULAR RHYTHM, +S1, +S2 - GI/Abdominal Exam GI & Abdominal Exam: Soft, Normal Bowel Sounds - Extremities Exam Extremities Exam: Normal Inspection. absent: Calf Tenderness, Pedal Edema - Neurological Exam Neurological Exam: Awake. absent: Oriented x3 - Psychiatric Exam Psychiatric exam: Normal Affect, Normal Mood - Skin Skin Exam: Intact, Normal Color Assessment and Plan - Assessment and Plan (Free Text) Assessment: Patient is a 73 yo male PMH of HTN, HLD meningioma, Parkinson's disease, presented to the ED for witnessed seizure. Patient found to have brain masses on MRI with likely mets. [employer] was called several times for seizure activity. Patient currently DNR/DNI. As per family and palliative care conversation, patient will be [facility] to [facility] instead of hospice. Plan: Seizures History of seizure s/p meningioma resection. Tends to have 1 seizure episode per month. compliant with Lamictal treatment 06/04/[address] shows new right frontal extra-axial soft tissue lesion adjacent to frontal craniotomy measuring 2.4 x 2.3 cm. This finding appears new compared to prior study. Left posterior parafalcine soft tissue lesion seen on axial image 24 measuring 4.1 x 1.2 cm in axial dimension and 1.6 cm in craniocaudal dimension 05/25/18 MRI brain: Two separate extra-axial masses along side the falx. There is a right anterior frontal mass and a left posterior frontal mass. These lesions appear to enhance. Findings suspicious for metastatic disease. Neuro consult : Dr. Lincoln- continue on Keppra medication alone. Discontinue lamictal. For discharge plane patient can be continued on prednisone 80mg for 1 week and tapered down each week (60, 40, 20, 0) oncology consulted: Lyly Miguelathingal- Oncology recommends hospice IVF:D5 @100cc/hr Keppra 1000mg IV Q12H Ativan 2mg q4 prn Per conversation with family with palliative; Patient to be transferred to correction facility Transaminitis Hepatotoxic medications contraindicated in this setting Patient switched to DNR/DNI no labs drawn for past two days Likely due to lamictal- medicine stopped; outpatient CMPs to monitor UTI (resolved) Urine culture positive for Enteroccoucs Faecalis Parkinson's disease Carbidopa/Levodopa 1 tab po bid Mirtazapine 15mg po HS HTN Coreg 25mg po bid Cozaar 25mg po bid HLD Atorvastatin held in the setting of elevated LFTs Prophylaxis GI ppx pepcid 40 mg po hs DVT ppx SCD Case and management discussed wt Dr. Adair <Greer Adair - Last Filed: 06/14/18 18:11> Objective - Vital Signs/Intake and Output Vital Signs (last 24 hours): Temp Pulse Resp BP Pulse Ox 98.1 F 82 19 134/71 96 06/14/18 17:09 06/14/18 17:09 06/14/18 17:09 06/14/18 17:09 06/14/18 17:09 Intake and Output: 06/14/18 06/14/18 06:59 18:59 Intake Total 3580 Balance 3580 - Medications Medications: Current Medications Carbidopa/Levodopa (Sinemet) 1 tab PO BID [facility] Last Admin: 06/14/18 10:02 Dose: 1 tab Carvedilol (Coreg) 25 mg PO BID [facility] Last Admin: 06/14/18 10:02 Dose: 25 mg Dexamethasone (Decadron Inj) 10 mg IVP Q8H [facility] Last Admin: 06/14/18 10:17 Dose: 10 mg Dextrose (Dextrose 50% Inj) 0 ml IV STAT PRN; Protocol PRN Reason: Hypoglycemia Protocol Famotidine (Pepcid) 40 mg PO HS [facility] Last Admin: 06/13/18 21:13 Dose: 40 mg Sodium Chloride (Sodium Chloride 0.9%) 1,000 mls @ 100 mls/hr IV .Q10H [facility] Last Admin: 06/06/18 00:17 Dose: 100 mls/hr Levetiracetam 1,000 mg/ Sodium (Chloride) 110 mls @ 460 mls/hr IV Q12 [facility] Last Admin: 06/14/18 09:53 Dose: 460 mls/hr Dextrose/Sodium Chloride (Dextrose 5%/0.45% Ns 1000 Ml) 1,000 mls @ 100 mls/hr IV .Q10H [facility] Last Admin: 06/14/18 04:11 Dose: 100 mls/hr Ketorolac Tromethamine (Toradol) 15 mg IVP Q6H PRN PRN Reason: Pain, Mild (1-3) Last Admin: 06/12/18 11:41 Dose: 15 mg Latanoprost (Xalatan Opht) 0 ml OU HS [facility] Last Admin: 06/13/18 21:39 Dose: 2.5 ml Losartan Potassium (Cozaar) 25 mg PO BID [facility] Last Admin: 06/14/18 10:02 Dose: 25 mg Mirtazapine (Remeron) 15 mg PO HS [facility] Last Admin: 06/13/18 21:13 Dose: 15 mg Polyethylene Glycol (Miralax) 17 gm PO BID [facility] Last Admin: 06/14/18 09:55 Dose: 17 gm Tamsulosin HCl (Flomax) 0.4 mg PO [facility] Last Admin: 06/13/18 21:13 Dose: 0.4 mg Timolol Maleate (Timoptic 0.5% Ophth Soln) 1 drop OD DAILY [facility] Last Admin: 06/14/18 10:16 Dose: 1 drop - Labs Labs: 06/10/18 05:30 06/14/18 06:40 PT 11.1 SECONDS (9.4-12.5) 06/04/18 18:08 INR 0.97 06/04/18 18:08 APTT 30.2 Seconds (25.1-36.5) 06/04/18 18:08 Attending/Attestation - Attestation I have personally seen and examined this patient.: Yes I have fully participated in the care of the patient.: Yes I have reviewed all pertinent clinical information, including history, physical exam and plan: Yes Notes (Text): 06/14/18 18:08 73 year old male with past medical history of hypertension, meningioma s/p resection and Parkinson's disease who presented with seizure, altered mental status and weakness. CT head showed new right frontal extra-axial soft tissue lesion. MRI brain shows two separate extra-axial masses along side the falx. Neurology is following. Patient was on keppra, lamictal and iv steroids. He is off video EEG. Patient/family refused and surgery or radiation oncology evaluation. Palliative care is following. Family has requested SNR rather than hospice. Patient is DNR/DNI. LFTs were noticed to be increasing and lamictal was discontinued. Will monitor closely. Case was discussed with neurology; agrees and recommended if continued to increase consider decreasing keppra. Greer Adair MD Hospitalist.
--- NOTE | 2018-06-14 16:44 | CP.PCM.PN ---
Subjective - Date & Time of Evaluation Date of Evaluation: 06/14/18 Time of Evaluation: 16:37 - Subjective Subjective: Joelle Parkinson, PGY2, Neurology Progress Note for Dr Lincoln: Patient seen and examined at bedside. No acute events overnight. No fevers over night. ROS limited due to patient's condition. Objective - Vital Signs/Intake and Output Vital Signs (last 24 hours): Temp Pulse Resp BP Pulse Ox 97.4 F L 61 18 121/67 97 06/14/18 08:47 06/14/18 10:02 06/14/18 08:47 06/14/18 10:02 06/14/18 08:47 Intake and Output: 06/14/18 06/14/18 06:59 18:59 Intake Total 3580 Balance 3580 - Medications Medications: Current Medications Carbidopa/Levodopa (Sinemet) 1 tab PO BID [facility] Last Admin: 06/14/18 10:02 Dose: 1 tab Carvedilol (Coreg) 25 mg PO BID [facility] Last Admin: 06/14/18 10:02 Dose: 25 mg Dexamethasone (Decadron Inj) 10 mg IVP Q8H [facility] Last Admin: 06/14/18 10:17 Dose: 10 mg Dextrose (Dextrose 50% Inj) 0 ml IV STAT PRN; Protocol PRN Reason: Hypoglycemia Protocol Famotidine (Pepcid) 40 mg PO HS [facility] Last Admin: 06/13/18 21:13 Dose: 40 mg Sodium Chloride (Sodium Chloride 0.9%) 1,000 mls @ 100 mls/hr IV .Q10H [facility] Last Admin: 06/06/18 00:17 Dose: 100 mls/hr Levetiracetam 1,000 mg/ Sodium (Chloride) 110 mls @ 460 mls/hr IV Q12 [facility] Last Admin: 06/14/18 09:53 Dose: 460 mls/hr Dextrose/Sodium Chloride (Dextrose 5%/0.45% Ns 1000 Ml) 1,000 mls @ 100 mls/hr IV .Q10H [facility] Last Admin: 06/14/18 04:11 Dose: 100 mls/hr Ketorolac Tromethamine (Toradol) 15 mg IVP Q6H PRN PRN Reason: Pain, Mild (1-3) Last Admin: 06/12/18 11:41 Dose: 15 mg Latanoprost (Xalatan Opht) 0 ml OU HS [facility] Last Admin: 06/13/18 21:39 Dose: 2.5 ml Losartan Potassium (Cozaar) 25 mg PO BID [facility] Last Admin: 06/14/18 10:02 Dose: 25 mg Mirtazapine (Remeron) 15 mg PO [facility] Last Admin: 06/13/18 21:13 Dose: 15 mg Polyethylene Glycol (Miralax) 17 gm PO BID [facility] Last Admin: 06/14/18 09:55 Dose: 17 gm Tamsulosin HCl (Flomax) 0.4 mg PO [facility] Last Admin: 06/13/18 21:13 Dose: 0.4 mg Timolol Maleate (Timoptic 0.5% Ophth Soln) 1 drop OD DAILY [facility] Last Admin: 06/14/18 10:16 Dose: 1 drop - Labs Labs: 06/10/18 05:30 06/14/18 06:40 PT 11.1 SECONDS (9.4-12.5) 06/04/18 18:08 INR 0.97 06/04/18 18:08 APTT 30.2 Seconds (25.1-36.5) 06/04/18 18:08 - Constitutional Appears: Non-toxic, No Acute Distress - Head Exam Head Exam: ATRAUMATIC - Eye Exam Eye Exam: EOMI, PERRL Pupil Exam: NORMAL ACCOMODATION, PERRL - ENT Exam ENT Exam: Mucous Membranes Moist - Cardiovascular Exam Cardiovascular Exam: RRR, +S1, +S2. absent: Murmur - GI/Abdominal Exam GI & Abdominal Exam: Soft, Normal Bowel Sounds - Neurological Exam Neurological Exam: Awake. absent: Alert, CN II-XII Intact, Oriented x3 - Skin Skin Exam: Dry, Warm Assessment and Plan - Assessment and Plan (Free Text) Assessment: 73 year old male with PMH meningioma (2015), parkinson's, HTN and HLD, present s/p witnessed seizure, found to have brain masses, likely mets. Patient started on Keppra and Lamictal, found to have rising LFTs: - Can discontinue Lamictal. Continue with Keppra for now. - Can discontinue Keppra if patient's LFTs keep rising. - Once patient is transferred, patient can be switched from IV Decadron to PO Prednisone 80 mg x1 week, to further tapering down. - DNR/DNI. - family discussing palliative and comfort care. - Poor prognosis Case seen and discussed with attending, Dr Lincoln.
[2018-06-14] MEDS: Latanoprost 2.5 ml Opht Soln OU SCH (22:07)
[2018-06-15] MEDS: Dextrose 5%/0.45% NS 1,000 ML IV SCH (06:44)
[2018-06-15 06:47] VITALS: BP 161/93
[2018-06-15 07:47] LABS: ALB/GLOB RATIO 1.4 (1.1-1.8); ALBUMIN 3.1 g/dL (3.0-4.8); AST/SGOT 171 U/L (17-59); BLOOD UREA NITROGEN 26 mg/dL (7-21); CALCIUM 8.5 mg/dL (8.4-10.5); GFR NON-AFRICAN AMERICAN > 60
[2018-06-15 07:51] LABS: ALT/SGPT 1036 U/L (7-56)
[2018-06-15] MEDS: POLYETHYLENE GLYCOL 3350 17 GM/Dose PACKET PO SCH (10:01)
[2018-06-15] MEDS: levETIRAcetam 1,000 MG in Sodium Chloride 0.9% 100 ML IV SCH (10:02)
[2018-06-15 10:19] VITALS: PULSE 61
[2018-06-15 11:05] VITALS: RESP 20; TEMP 97.6; O2SAT 94
--- NOTE | 2018-06-15 17:38 | CP.PCM.DIS ---
<Brent Goddard - Last Filed: 06/15/18 17:32> Provider - Provider Date of Admission: 06/04/18 20:45 Attending physician: Greer Adair MD Time Spent in preparation of Discharge (in minutes): 45 Hospital Course - Lab Results Lab Results: Micro Results 06/04/18 18:08 Urine,Clean Catch Urine Culture - Final Enterococcus Faecalis Most Recent Lab Values WBC 5.7 10^3/ul (4.5-11.0) 06/10/18 05:30 RBC 4.28 10^6/uL (3.5-6.1) 06/10/18 05:30 Hgb 14.0 g/dL (14.0-18.0) D 06/10/18 05:30 Hct 39.7 % (42.0-52.0) L 06/10/18 05:30 MCV 92.8 fl (80.0-105.0) 06/10/18 05:30 MCH 32.7 pg (25.0-35.0) 06/10/18 05:30 MCHC 35.3 g/dl (31.0-37.0) 06/10/18 05:30 RDW 12.0 % (11.5-14.5) 06/10/18 05:30 Plt Count 200 10^3/uL (120.0-450.0) 06/10/18 05:30 MPV 9.7 fl (7.0-11.0) 06/10/18 05:30 Gran % 85.5 % (50.0-68.0) H 06/10/18 05:30 Lymph % (Auto) 12.0 % (22.0-35.0) L 06/10/18 05:30 Valley % (Auto) 2.5 % (1.0-6.0) 06/10/18 05:30 Eos % (Auto) 0.0 % (1.5-5.0) L 06/10/18 05:30 Baso % (Auto) 0.0 % (0.0-3.0) 06/10/18 05:30 Gran # 4.84 (1.4-6.5) 06/10/18 05:30 Lymph # (Auto) 0.7 (1.2-3.4) L 06/10/18 05:30 Valley # (Auto) 0.1 (0.1-0.6) 06/10/18 05:30 Eos # (Auto) 0.0 (0.0-0.7) 06/10/18 05:30 Baso # (Auto) 0.00 K/mm3 (0.0-2.0) 06/10/18 05:30 Neutrophils % (Manual) 94 % (50.0-70.0) H 06/09/18 06:45 Band Neutrophils % 1 % (0-2) 06/09/18 06:45 Lymphocytes % (Manual) 5 % (22.0-35.0) L 06/09/18 06:45 Monocytes % (Manual) TEST NOT PERFORMED 06/09/18 06:45 Platelet Evaluation Normal (NORMAL) 06/09/18 06:45 PT 11.1 SECONDS (9.4-12.5) 06/04/18 18:08 INR 0.97 06/04/18 18:08 APTT 30.2 Seconds (25.1-36.5) 06/04/18 18:08 pCO2 43 mm/Hg (35-45) 06/06/18 09:50 pO2 112.0 mm/Hg (80-100) H 06/06/18 09:50 HCO3 26.0 mmol/L (21-28) 06/06/18 09:50 ABG pH 7.39 (7.35-7.45) 06/06/18 09:50 ABG Total CO2 27.3 mmol.L (22-28) 06/06/18 09:50 ABG O2 Saturation 97.2 % (95-98) 06/06/18 09:50 ABG Base Excess 0.8 mmol/L (-2.0-3.0) 06/06/18 09:50 ABG Potassium 3.4 mmol/L (3.6-5.2) L 06/06/18 09:50 Sodium 140.0 mmol/L (132-148) 06/06/18 09:50 Chloride 108.0 mmol/L (98-107) H 06/06/18 09:50 Glucose 88 mg/dl (75-110) 06/06/18 09:50 Lactate 1.1 mmol/L (0.7-2.1) 06/06/18 09:50 FiO2 28.0 % 06/06/18 09:50 Sodium 137 mmol/L (132-148) 06/15/18 07:00 Potassium 4.3 mmol/L (3.6-5.0) 06/15/18 07:00 Chloride 105 mmol/L (98-107) 06/15/18 07:00 Carbon Dioxide 26 mmol/L (21-33) 06/15/18 07:00 Anion Gap 11 (10-20) 06/15/18 07:00 BUN 26 mg/dL (7-21) H 06/15/18 07:00 Creatinine 0.8 mg/dl (0.8-1.5) 06/15/18 07:00 Est GFR ( Amer) > 60 06/15/18 07:00 Est GFR (Non-Af Amer) > 60 06/15/18 07:00 POC Glucose (mg/dL) 110 mg/dL (65-110) 06/04/18 17:50 Random Glucose 145 mg/dL (70-110) H 06/15/18 07:00 Calcium 8.5 mg/dL (8.4-10.5) 06/15/18 07:00 Phosphorus 3.9 mg/dL (2.5-4.5) 06/05/18 05:00 Magnesium 2.4 mg/dL (1.7-2.2) H 06/05/18 05:00 Total Bilirubin 0.6 mg/dL (0.2-1.3) 06/15/18 07:00 AST 171 U/L (17-59) H D 06/15/18 07:00 ALT 1036 U/L (7-56) H 06/15/18 07:00 Alkaline Phosphatase 52 U/L (38-126) 06/15/18 07:00 Lactate Dehydrogenase 466 U/L (333-699) 06/04/18 18:08 Total Creatine Kinase 458 U/L (35-230) H 06/04/18 18:08 CK-MB (CK-2) 2.6 ng/mL (0.0-3.6) 06/04/18 18:08 CK-MB (CK-2) % Cancelled 06/04/18 18:08 Troponin I < 0.01 ng/mL 06/04/18 18:08 Total Protein 5.3 g/dL (5.8-8.3) L 06/15/18 07:00 Albumin 3.1 g/dL (3.0-4.8) 06/15/18 07:00 Globulin 2.2 gm/dL 06/15/18 07:00 Albumin/Globulin Ratio 1.4 (1.1-1.8) 06/15/18 07:00 Free T4 0.77 ng/dL (0.78-2.19) L 06/05/18 06:00 Thyroxine (T4) 7.0 ug/dL (5.5-11.0) 06/05/18 06:00 Free T3 pg/mL 3.08 pg/mL (2.77-5.27) 06/05/18 06:00 Total T3 1.01 ng/mL (0.97-1.69) 06/05/18 06:00 TSH 3rd Generation 2.46 mIU/mL (0.46-4.68) 06/05/18 06:00 Prolactin 9.9 ng/mL (3.7-17.9) 06/05/18 08:03 Arterial Blood Potassium 3.4 mmol/L (3.6-5.2) L 06/06/18 09:50 Urine Color Yellow (YELLOW) 06/04/18 18:08 Urine Appearance Sl cloudy (CLEAR) 06/04/18 18:08 Urine pH 5.5 (4.7-8.0) 06/04/18 18:08 Ur Specific [place] >= 1.030 (1.005-1.035) 06/04/18 18:08 Urine Protein Trace mg/dL (<30 mg/dL) H 06/04/18 18:08 Urine Glucose (UA) Negative mg/dL (NEGATIVE) 06/04/18 18:08 Urine Ketones Negative mg/dL (NEGATIVE) 06/04/18 18:08 Urine Blood Small (NEGATIVE) H 06/04/18 18:08 Urine Nitrate Negative (NEGATIVE) 06/04/18 18:08 Urine Bilirubin Negative (NEGATIVE) 06/04/18 18:08 Urine Urobilinogen 0.2 E.U./dL (<1 E.U./dL) 06/04/18 18:08 Ur Leukocyte Esterase Small Toby/uL (NEGATIVE) H 06/04/18 18:08 Urine RBC 5 - 10 /hpf (0-2) 06/04/18 18:08 Urine WBC 25 - 30 /hpf (0-6) 06/04/18 18:08 Ur Epithelial Cells 6 - 8 /hpf (0-5) 06/04/18 18:08 Urine Bacteria Mod (NEG) 06/04/18 18:08 - Hospital Course Hospital Course: Upon admission: This is a 73 year old male with PMH of 2015 meningioma, parkinson's, HT and HLD presenting to the ED for witnessed seizure. Per , patient was laying on bed at home at 4pm when he began to have seizure that lasted approximately ten minutes. Seizure broke spontaneously and patient admits to confusion after seizure. He denies any head trauma. Patient says he has approximately one seizure per month since his meningioma resection in 2014. Patient has no complaints at this time. He denies CP, SOB, headaches, fevers, nausea, chills, vomiting, abdominal pain, new back pain, urinary complaints, numbness, tingling, recent sickness and recent travel. 12 point ROS noted here, otherwise unremarkable. In ED, patient was given 50mg lamictal and 1L NS. Labs showed elevated CK, BUN 26, Mg of 2.4 and ALT of 58. Head CT showed right frontal extra-axial soft tissue lesion adjacent to frontal craniotomy. This finding appears new compared to prior study. Left posterior parafalcine soft tissue lesion. Recommend further evaluation with MRI with contrast. Chronic ischemic changes bilaterally. Per Dr. Jenkins, patient to increase lamictal to 200mg BID and will have Brain MRI in morning. Patient will be admitted to [facility] for monitoring. Hospital Course: 73 year old male admitted s/p seizure episode and mild transaminitis on 06/04/2018. Head CT without contrast resulted mass arising from the left side of the posterior falx measuring 46 x 28 x 12 mm, most likely representing a meningioma; dural metastasis also possible vasogenic edema in the left hemisphere; chronic encephalomalacia in the right hemisphere; mass has increased in size. Neurology was consulted and recommended MRI of the brain, continuous video EEG, and to increase Lamictal to 200 mg BID. During MRI, patient had 1 episode of seizure activity which resolved with Ativan. MRI with and without contrast resulted 2 separate extra axial masses alongside the flax; right anterior frontal mass and left posterior frontal mass; lesions appear to enhance; findings suspicious for metastatic disease. As per oncology, patient would not benefit from radiation; palliative care was initiated. Patient was also found to have urinary tract infection, positive enterococcus faecalis infection, and was started on Levaquin, which was later stopped. Incidental UA finding of microscoptic hematuria, for which patient was counseled regarding genitourinary malignancy risk. During his admission, LFTs were elevated, likely secondary to Lamictal. After speaking to Palliative, patient is to be transferred to detention facility. He was seen by physical therapy, who was agreeable with the plan. Neurology recommended to stop Lamictal and to begin steroid taper upon discharge. Discharge plan: Patient is stable for discharge to detention facility as per Dr. Adair. Patient is to follow up with primary medical doctor, Dr. Overton, within 3-5 days of discharge. Patient is to follow up with neurology, Dr. Jenkins, and urology as recommended. Patient should resume all medications as prescribed and instructed in discharge instructions. Return to the emergency department if symptoms return or worsen. Patient understands and agrees with discharge plan. Please trend the LFTs to prove downward trend after discontinuation of Lamictal within next 2-3 days of discharge at detention facility. Patient's at bedside was educated on the medications that the patient would be discharged with to detention facility. Patient's made aware to follow up with PMD and Neurology for continued care. Disclaimer: Written above is a synopsis of patients current hospital admission. For full admission refer to EMR. Discharge Exam - Head Exam Head Exam: ATRAUMATIC, NORMAL INSPECTION, NORMOCEPHALIC - Eye Exam Eye Exam: EOMI, Normal appearance. absent: Nystagmus, Scleral icterus - Respiratory Exam Respiratory Exam: NORMAL BREATHING PATTERN. absent: Rhonchi, Wheezes, Respiratory Distress - Cardiovascular Exam Cardiovascular Exam: REGULAR RHYTHM, +S1, +S2 - GI/Abdominal Exam GI & Abdominal Exam: Normal Bowel Sounds, Soft. absent: Tenderness - Extremities Exam Extremities exam: normal inspection - Psychiatric Exam Psychiatric exam: Normal Affect, Normal Mood - Skin Skin Exam: Intact, Normal Color Discharge Plan - Discharge Medications Prescriptions: levETIRAcetam [Keppra] 500 mg PO BID #60 tab Prednisone [Deltasone] 60 mg PO DAILY #7 tablet predniSONE [predniSONE Tab] 40 mg PO DAILY #7 tab predniSONE [predniSONE Tab] 20 mg PO DAILY #7 tab Prednisone 80 mg PO DAILY #7 tablet - Follow Up Plan Condition: IMPROVED Disposition: NURSING FACILITY MEDICAID CERT Instructions: Seizures Additional Instructions: 1. Discharge to detention facility. 2. Please followup with primary medical doctor, Dr. Andre Sifuentes, within 3-5 days of discharge from hospital. Please follow up with a neurologist Dr. Jenkins with 3-5 days of discharge from hospital. 3. Please resume all of your home medications as prescribed. The new medications that will be prescribed from this hospital admission is as follows: Keppra and Prednisone. Keppra 500mg two pills a day by mouth each morning. Will be getting 4 different dosages for prednisone. Starting tomorrow patient will take 80 mg of prednisone for a week from 06-16 to 06-22, then patient will take prednisone 60mg from 06-23 to 06-29, then patient will take prednisone 40mg from 06-30 to 07-05, followed by prednisone 20mg from 07-06 to 07-13. After that patient will no longer need to continue his prednisone medication. Patient will continue taking Keppra and follow up with their primary medical doctor. 4. Please return to the hospital if symptoms recur or worsen. <Greer Adair - Last Filed: 06/15/18 18:42> Provider - Provider Date of Admission: 06/04/18 20:45 Attending physician: Greer Adair MD Hospital Course - Lab Results Lab Results: Micro Results 06/04/18 18:08 Urine,Clean Catch Urine Culture - Final Enterococcus Faecalis Most Recent Lab Values WBC 5.7 10^3/ul (4.5-11.0) 06/10/18 05:30 RBC 4.28 10^6/uL (3.5-6.1) 06/10/18 05:30 Hgb 14.0 g/dL (14.0-18.0) D 06/10/18 05:30 Hct 39.7 % (42.0-52.0) L 06/10/18 05:30 MCV 92.8 fl (80.0-105.0) 06/10/18 05:30 MCH 32.7 pg (25.0-35.0) 06/10/18 05:30 MCHC 35.3 g/dl (31.0-37.0) 06/10/18 05:30 RDW 12.0 % (11.5-14.5) 06/10/18 05:30 Plt Count 200 10^3/uL (120.0-450.0) 06/10/18 05:30 MPV 9.7 fl (7.0-11.0) 06/10/18 05:30 Gran % 85.5 % (50.0-68.0) H 06/10/18 05:30 Lymph % (Auto) 12.0 % (22.0-35.0) L 06/10/18 05:30 Valley % (Auto) 2.5 % (1.0-6.0) 06/10/18 05:30 Eos % (Auto) 0.0 % (1.5-5.0) L 06/10/18 05:30 Baso % (Auto) 0.0 % (0.0-3.0) 06/10/18 05:30 Gran # 4.84 (1.4-6.5) 06/10/18 05:30 Lymph # (Auto) 0.7 (1.2-3.4) L 06/10/18 05:30 Valley # (Auto) 0.1 (0.1-0.6) 06/10/18 05:30 Eos # (Auto) 0.0 (0.0-0.7) 06/10/18 05:30 Baso # (Auto) 0.00 K/mm3 (0.0-2.0) 06/10/18 05:30 Neutrophils % (Manual) 94 % (50.0-70.0) H 06/09/18 06:45 Band Neutrophils % 1 % (0-2) 06/09/18 06:45 Lymphocytes % (Manual) 5 % (22.0-35.0) L 06/09/18 06:45 Monocytes % (Manual) TEST NOT PERFORMED 06/09/18 06:45 Platelet Evaluation Normal (NORMAL) 06/09/18 06:45 PT 11.1 SECONDS (9.4-12.5) 06/04/18 18:08 INR 0.97 06/04/18 18:08 APTT 30.2 Seconds (25.1-36.5) 06/04/18 18:08 pCO2 43 mm/Hg (35-45) 06/06/18 09:50 pO2 112.0 mm/Hg (80-100) H 06/06/18 09:50 HCO3 26.0 mmol/L (21-28) 06/06/18 09:50 ABG pH 7.39 (7.35-7.45) 06/06/18 09:50 ABG Total CO2 27.3 mmol.L (22-28) 06/06/18 09:50 ABG O2 Saturation 97.2 % (95-98) 06/06/18 09:50 ABG Base Excess 0.8 mmol/L (-2.0-3.0) 06/06/18 09:50 ABG Potassium 3.4 mmol/L (3.6-5.2) L 06/06/18 09:50 Sodium 140.0 mmol/L (132-148) 06/06/18 09:50 Chloride 108.0 mmol/L (98-107) H 06/06/18 09:50 Glucose 88 mg/dl (75-110) 06/06/18 09:50 Lactate 1.1 mmol/L (0.7-2.1) 06/06/18 09:50 FiO2 28.0 % 06/06/18 09:50 Sodium 137 mmol/L (132-148) 06/15/18 07:00 Potassium 4.3 mmol/L (3.6-5.0) 06/15/18 07:00 Chloride 105 mmol/L (98-107) 06/15/18 07:00 Carbon Dioxide 26 mmol/L (21-33) 06/15/18 07:00 Anion Gap 11 (10-20) 06/15/18 07:00 BUN 26 mg/dL (7-21) H 06/15/18 07:00 Creatinine 0.8 mg/dl (0.8-1.5) 06/15/18 07:00 Est GFR ( Amer) > 60 06/15/18 07:00 Est GFR (Non-Af Amer) > 60 06/15/18 07:00 POC Glucose (mg/dL) 110 mg/dL (65-110) 06/04/18 17:50 Random Glucose 145 mg/dL (70-110) H 06/15/18 07:00 Calcium 8.5 mg/dL (8.4-10.5) 06/15/18 07:00 Phosphorus 3.9 mg/dL (2.5-4.5) 06/05/18 05:00 Magnesium 2.4 mg/dL (1.7-2.2) H 06/05/18 05:00 Total Bilirubin 0.6 mg/dL (0.2-1.3) 06/15/18 07:00 AST 171 U/L (17-59) H D 06/15/18 07:00 ALT 1036 U/L (7-56) H 06/15/18 07:00 Alkaline Phosphatase 52 U/L (38-126) 06/15/18 07:00 Lactate Dehydrogenase 466 U/L (333-699) 06/04/18 18:08 Total Creatine Kinase 458 U/L (35-230) H 06/04/18 18:08 CK-MB (CK-2) 2.6 ng/mL (0.0-3.6) 06/04/18 18:08 CK-MB (CK-2) % Cancelled 06/04/18 18:08 Troponin I < 0.01 ng/mL 06/04/18 18:08 Total Protein 5.3 g/dL (5.8-8.3) L 06/15/18 07:00 Albumin 3.1 g/dL (3.0-4.8) 06/15/18 07:00 Globulin 2.2 gm/dL 06/15/18 07:00 Albumin/Globulin Ratio 1.4 (1.1-1.8) 06/15/18 07:00 Free T4 0.77 ng/dL (0.78-2.19) L 06/05/18 06:00 Thyroxine (T4) 7.0 ug/dL (5.5-11.0) 06/05/18 06:00 Free T3 pg/mL 3.08 pg/mL (2.77-5.27) 06/05/18 06:00 Total T3 1.01 ng/mL (0.97-1.69) 06/05/18 06:00 TSH 3rd Generation 2.46 mIU/mL (0.46-4.68) 06/05/18 06:00 Prolactin 9.9 ng/mL (3.7-17.9) 06/05/18 08:03 Arterial Blood Potassium 3.4 mmol/L (3.6-5.2) L 06/06/18 09:50 Urine Color Yellow (YELLOW) 06/04/18 18:08 Urine Appearance Sl cloudy (CLEAR) 06/04/18 18:08 Urine pH 5.5 (4.7-8.0) 06/04/18 18:08 Ur Specific [place] >= 1.030 (1.005-1.035) 06/04/18 18:08 Urine Protein Trace mg/dL (<30 mg/dL) H 06/04/18 18:08 Urine Glucose (UA) Negative mg/dL (NEGATIVE) 06/04/18 18:08 Urine Ketones Negative mg/dL (NEGATIVE) 06/04/18 18:08 Urine Blood Small (NEGATIVE) H 06/04/18 18:08 Urine Nitrate Negative (NEGATIVE) 06/04/18 18:08 Urine Bilirubin Negative (NEGATIVE) 06/04/18 18:08 Urine Urobilinogen 0.2 E.U./dL (<1 E.U./dL) 06/04/18 18:08 Ur Leukocyte Esterase Small Toby/uL (NEGATIVE) H 06/04/18 18:08 Urine RBC 5 - 10 /hpf (0-2) 06/04/18 18:08 Urine WBC 25 - 30 /hpf (0-6) 06/04/18 18:08 Ur Epithelial Cells 6 - 8 /hpf (0-5) 06/04/18 18:08 Urine Bacteria Mod (NEG) 06/04/18 18:08 Attending/Attestation - Attestation I have personally seen and examined this patient.: Yes I have fully participated in the care of the patient.: Yes I have reviewed all pertinent clinical information, including history, physical exam and plan: Yes Notes (Text): 06/15/18 18:40 73 year old male with past medical history of hypertension, meningioma s/p resection and Parkinson's disease who presented with seizure, altered mental status and weakness. CT head showed new right frontal extra-axial soft tissue lesion. MRI brain shows two separate extra-axial masses along side the falx. He was seen by neurology and started on keppra, lamictal and iv steroids. Palliative care evaluation was appreciated. Family has requested SNR rather than hospice. Patient is DNR/DNI. LFTs were noticed to be increased and lamictal was discontinued. Transaminitis began to improve. Patient is discharged to SNF. Follow up with pmd. Follow up with neurology. Continue with prednisone taper. Monitor LFTs as outpatient. If persistent elevation of LFTs consider d/c sofiappra per neurology. Greer Adair MD Hospitalist.
== END 2018-06-15 14:47 | DRG 54 ==
LOC: ED 17:43 → ERH 20:45 → 3RSO 06-05 15:18
PROVIDERS: ADMIT Internal Medicine; ATTEND Internal Medicine
DX: D32.0 Benign neoplasm of cerebral meninges (principal); G93.6 Cerebral edema; N39.0 Urinary tract infection, site not specified; G40.909 Epilepsy, unspecified, not intractable, without status epilepticus; G20 Parkinson's disease; E78.5 Hyperlipidemia, unspecified; N32.81 Overactive bladder; I10 Essential (primary) hypertension; G93.89 Other specified disorders of brain; H40.9 Unspecified glaucoma; Z66 Do not resuscitate; Z86.011 Personal history of benign neoplasm of the brain; Z96.642 Presence of left artificial hip joint; Z87.891 Personal history of nicotine dependence; Z92.3 Personal history of irradiation